=== PATIENT | male | born 1995 ===

== ENCOUNTER 2016-11-30 11:42 | Emergency (ER) | payer SELFPAY ==
[2016-11-30 11:48] VITALS: BMI 24.3
[2016-11-30 12:52] LABS: ADD MANUAL DIFF? NO
--- NOTE | 2016-11-30 12:53 | RAD ---
HISTORY: pes COMPARISON: 04/24/2016 FINDINGS: LUNGS: No active pulmonary disease. PLEURA: No significant pleural effusion identified, no pneumothorax apparent. CARDIOVASCULAR: Normal. OSSEOUS STRUCTURES: No significant abnormalities. VISUALIZED UPPER ABDOMEN: Normal. OTHER FINDINGS: None. IMPRESSION: No active disease.
[2016-11-30 12:54] LABS: BASO # 0.04 K/mm3 (0.0-2.0); BASO % 0.6 % (0.0-3.0); EOS % 0.5 % (1.5-5.0); GRAN # 4.13 (1.4-6.5); GRAN % 66.1 % (50.0-68.0); HEMATOCRIT 44.8 % (42.0-52.0); LYMPH # 1.6 (1.2-3.4); MEAN CELL VOLUME 86.7 fL (80.0-105.0); MEAN CORPUSCULAR HEMOGLOBIN 30.9 pg (25.0-35.0); MEAN CORPUSCULAR HGB CONC 35.7 g/dl (31.0-37.0); MONO # 0.5 (0.1-0.6); MONO % 7.8 % (1.0-6.0); PLATELET COUNT 178 10^3/uL (120.0-450.0); RED CELL DISTRIBUTION WIDTH 12.5 % (11.5-14.5); WHITE BLOOD COUNT 6.3 10^3/ul (4.5-11.0)
[2016-11-30 13:05] LABS: ALB/GLOB RATIO 1.3 (1.1-1.8); ALKALINE PHOSPHATASE 68 U/L (38-133); ALT/SGPT 32 U/L (7-56); AST/SGOT 28 U/L (15-59); BILIRUBIN,TOTAL 1.5 mg/dL (0.2-1.3); BLOOD UREA NITROGEN 24 mg/dL (7-21); CALCIUM 9.5 mg/dL (8.4-10.5); CARBON DIOXIDE 26 mmol/L (21-33); CHLORIDE 100 mmol/L (98-107); GFR AFRICAN-AMERICAN > 60; GLUCOSE,RANDOM 86 mg/dL (70-110); POTASSIUM 3.9 mmol/L (3.6-5.0); SODIUM 141 mmol/L (132-148); TOTAL PROTEIN 8.7 g/dL (5.8-8.3)
[2016-11-30 14:20] LABS: URINE APPEARANCE CLEAR (CLEAR); URINE BILIRUBIN SMALL (NEGATIVE); URINE BLOOD TRACE-INTACT (NEGATIVE); URINE COLOR YELLOW (YELLOW); URINE GLUCOSE (UA) NEGATIVE (NEGATIVE); URINE KETONE 40 mg/dL (NEGATIVE); URINE LEUKOCYTE ESTERASE NEGATIVE Leu/uL (NEGATIVE); URINE PROTEIN TRACE mg/dL (<30 mg/dL)
[2016-11-30 14:30] LABS: URINE WBC NEGATIVE /hpf (0-6)
--- NOTE | 2016-11-30 14:32 | ED PDOC ---
Arrival/HPI - General Historian: Patient <Prudence Maloney - Last Filed: 11/30/16 20:55> <Jimmy Brady - Last Filed: 11/30/16 22:42> - General Chief Complaint: Substance Abuse Time Seen by Provider: 11/30/16 12:11 - History of Present Illness Narrative History of Present Illness (Text): 11/30/16 14:29 21-year-old male with a history of substance abuse and psychotic behavior presents today after being found in someone's backyard just smiling. Patient denies any complaints. Denies alcohol use. (Prudence Maloney) Past Medical History - Provider Review Nursing Documentation Reviewed: Yes - Travel History Have you recently traveled outside [place] w/in the past 3 mons?: No - Infectious Disease Hx of Infectious Diseases: None - Tetanus Immunization Tetanus Immunization: Unknown - Cardiac Hx Cardiac Disorders: No - Pulmonary Hx Respiratory Disorders: No - Neurological Hx Neurological Disorder: No - HEENT Hx HEENT Disorder: No - Renal Hx Renal Disorder: No - Endocrine/Metabolic Hx Endocrine Disorders: No - Hematological/Oncological Hx Blood Disorders: No - Integumentary Hx Dermatological Disorder: No - Musculoskeletal/Rheumatological Hx Musculoskeletal Disorders: No - Gastrointestinal Hx Gastrointestinal Disorders: No - Genitourinary/Gynecological Hx Genitourinary Disorders: No - Psychiatric Hx Emotional Abuse: No Hx Substance Use: Yes (Marijuana) - Anesthesia Hx Anesthesia: No <Prudence Maloney - Last Filed: 11/30/16 20:55> Family/Social History - Physician Review Nursing Documentation Reviewed: Yes Family/Social History: Unknown Family HX Smoking Status: Heavy Smoker > 10 Cigarettes Daily Hx Alcohol Use: No Hx Substance Use: Yes (Marijuana) Substance used: marijuana <Prudence Maloney - Last Filed: 11/30/16 20:55> Allergies/Home Meds <Prudence Maloney - Last Filed: 11/30/16 20:55> <Jimmy Brady - Last Filed: 11/30/16 22:42> Allergies/Adverse Reactions: Allergies No Known Allergies Allergy (Verified 04/13/16 13:41) Review of Systems - Review of Systems Systems not reviewed;Unavailable: Psychotic Respiratory: absent: Cough Cardiovascular: absent: Chest Pain Gastrointestinal: absent: Abdominal Pain, Vomiting Musculoskeletal: absent: Arthralgias Neurological: absent: Headache <Prudence Maloney - Last Filed: 11/30/16 20:55> Physical Exam Vital Signs Reviewed: Yes Temperature: Afebrile Blood Pressure: Normal Pulse: Regular Respiratory Rate: Normal Appearance: Positive for: Well-Appearing, Non-Toxic, Comfortable Pain Distress: None Mental Status: Positive for: Alert and Oriented X 3 - Systems Exam Head: Present: Atraumatic Neck: Present: Normal Range of Motion Respiratory/Chest: Present: Clear to Auscultation, Good Air Exchange. No: Respiratory Distress, Accessory Muscle Use Cardiovascular: Present: Regular Rate and Rhythm, Normal S1, S2. No: Murmurs Abdomen: No: Tenderness Back: Present: Normal Inspection Upper Extremity: Present: Normal ROM Lower Extremity: Present: Normal ROM Skin: Present: Warm, Dry, Normal Color. No: Rashes Psychiatric: Present: Alert <Prudence Maloney - Last Filed: 11/30/16 20:55> Vital Signs Temp Pulse Resp BP Pulse Ox 11/30/16 20:06 98.5 F 68 16 136/78 100 11/30/16 17:14 98 F 90 18 128/60 100 11/30/16 15:53 98.0 F 77 16 124/87 99 11/30/16 12:23 98.4 F 95 H 18 136/77 99 11/30/16 11:45 97.8 F 99 H 16 136/77 100 Medical Decision Making <Prudence Maloney - Last Filed: 11/30/16 20:55> <Jimmy Brady - Last Filed: 11/30/16 22:42> ED Course and Treatment: 11/30/16 14:32 Patient is nontoxic well-appearing in no distress vital signs are stable. CBC WNL CMP WNL Tylenol WNL Salicylate WNL Alcohol level WNL Urine drug screen + marijuana UA; positive blood cxr: wnl ekg normal sinus rhythm at 92 bpm normal axis normal intervals no ST elevations pt is medically cleared for PES evaluation/and psychiatric transfer/admission Patient was seen and evaluated by PES screener: erwin will get [facility] screening; pt refused to sign voluntarily to psychiatric floor. 11/30/16 20:56 Case signed out to Dr. Brady pending [facility] psychiatric screening. ( Prudence Maloney) 11/30/16 22:34 Pt was seen and evaluated by [facility] screeners, not a candidate for admission. Pt was seen againt by FERNY Faye, she discussed with Dr. Boateng, pt is to be discharged against psychiatric recommendation. Will f/u with outpt treatment. Pt was deemed not to be a suicidal or homicidal risk by psychiatrist. 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 Pt instructed to f/u outpt. (Jimmy Brady) - Lab Interpretations Lab Results: 11/30/16 12:00 11/30/16 12:00 Lab Results 11/30/16 14:10: Urine Color Yellow, Urine Appearance Clear, Urine pH 6.0, Ur Specific [place] 1.025, Urine Protein Trace H, Urine Glucose (UA) Negative, Urine Ketones 40 H, Urine Blood Trace-intact H, Urine Nitrate Negative, Urine Bilirubin Small H, Urine Urobilinogen 1.0 H, Ur Leukocyte Esterase Negative, Urine RBC 1 - 3, Urine WBC Negative, Urine Other Mucus, Urine Opiates Screen Negative, Urine Methadone Screen Negative, Ur Barbiturates Screen Negative, Ur Phencyclidine Scrn Negative, Ur Amphetamines Screen Negative, U Benzodiazepines Scrn Negative, U Oth Cocaine Metabols Negative, U Cannabinoids Screen Positive H 11/30/16 12:00: WBC 6.3 D, RBC 5.17, Hgb 16.0, Hct 44.8, MCV 86.7, MCH 30.9, MCHC 35.7, RDW 12.5, Plt Count 178, MPV 12.0 H, Gran % 66.1, Lymph % (Auto) 25.0 , [place] % (Auto) 7.8 H, Eos % (Auto) 0.5 L, Baso % (Auto) 0.6, Gran # 4.13, Lymph # 1.6, [place] # 0.5, Eos # 0.0, Baso # 0.04, Sodium 141, Potassium 3.9, Chloride 100, Carbon Dioxide 26, Anion Gap 19, BUN 24 H, Creatinine 1.0, Est GFR ( Amer) > 60, Est GFR (Non-Af Amer) > 60, Random Glucose 86, Calcium 9.5, Total Bilirubin 1.5 H, AST 28, ALT 32, Alkaline Phosphatase 68, Total Protein 8.7 H, Albumin 4.9 H, Globulin 3.8, Albumin/Globulin Ratio 1.3, Salicylates < 1 L, Acetaminophen < 10.0 L, Alcohol, Quantitative < 10 - RAD Interpretation Radiology Orders: 11/30/16 12:34 CHEST PORTABLE [RAD] Stat Disposition/Present on Arrival - Present on Arrival History of DVT/PE: No History of Uncontrolled Diabetes: No Urinary Catheter: No History of Decub. 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
--- NOTE | 2016-11-30 18:51 | CARD ---
APPROVED REPORT EKG Measurement Heart [id number] <Conclusion> Normal sinus rhythm Normal ECG
[2016-11-30 20:06] VITALS: RESP 16; TEMP 98.5
[2016-11-30 23:04] VITALS: BP 130/72; PULSE 70; O2SAT 97
== END 2016-11-30 23:08 | disposition home or self-care (01) ==
LOC: ED 11:42
DX: F19.950 Other psychoactive substance use, unspecified with psychoactive substance-induced psychotic disorder with delusions (principal)
CPT/HCPCS: 71010; 80053; 81001; 85025; 93005; 99285; G0480

== ENCOUNTER 2017-05-16 22:17 | Emergency (ER) | payer MEDICAID, OTHER ==
[2017-05-16 22:18] VITALS: BMI 24.3
--- NOTE | 2017-05-16 22:27 | ED PDOC ---
Arrival/HPI - General Time Seen by Provider: 05/16/17 22:20 Historian: Patient - History of Present Illness Narrative History of Present Illness (Text): 05/16/17 22:28 A 22 year old male, whose past medical history includes schizophrenia, was brought in by EMS to the emergency department and was found on the street for suspected substance abuse. Patient is nonverbal, smiling. Symptom Onset: Sudden Symptom Course: Unchanged Activities at Onset: Rest Context: Street Past Medical History - Provider Review Nursing Documentation Reviewed: Yes - Infectious Disease Hx of Infectious Diseases: None - Tetanus Immunization Tetanus Immunization: Unknown - Cardiac Hx Cardiac Disorders: No - Pulmonary Hx Respiratory Disorders: No - Neurological Hx Neurological Disorder: No - HEENT Hx HEENT Disorder: No - Renal Hx Renal Disorder: No - Endocrine/Metabolic Hx Endocrine Disorders: No - Hematological/Oncological Hx Blood Disorders: No - Integumentary Hx Dermatological Disorder: No - Musculoskeletal/Rheumatological Hx Musculoskeletal Disorders: No - Gastrointestinal Hx Gastrointestinal Disorders: No - Genitourinary/Gynecological Hx Genitourinary Disorders: No - Psychiatric Hx Emotional Abuse: No Hx Substance Use: Yes (Marijuana) - Anesthesia Hx Anesthesia: No Family/Social History - Physician Review Nursing Documentation Reviewed: Yes Family/Social History: No Known Family HX Smoking Status: Heavy Smoker > 10 Cigarettes Daily Hx Alcohol Use: No Hx Substance Use: Yes (Marijuana) Substance used: marijuana Allergies/Home Meds Allergies/Adverse Reactions: Allergies No Known Allergies Allergy (Verified 05/16/17 22:21) Review of Systems - Physician Review All systems were reviewed & negative as marked: Yes - Review of Systems Constitutional: absent: Fevers Psychiatric: absent: Depression Physical Exam Vital Signs Reviewed: Yes Vital Signs Temp Pulse Resp BP Pulse Ox 05/18/17 12:06 98.0 F 85 17 120/75 99 05/18/17 04:33 80 16 98 05/17/17 20:00 75 20 111/70 98 05/17/17 13:43 98.2 F 74 16 110/63 100 05/17/17 10:38 98.7 F 88 20 120/79 98 05/17/17 08:41 98 F 89 18 121/78 99 05/17/17 03:37 74 16 101/53 L 96 Appearance: Positive for: Well-Appearing, Non-Toxic, Comfortable Pain Distress: None - Systems Exam Head: Present: Atraumatic, Normocephalic Pupils: Present: PERRL Extroacular Muscles: Present: EOMI Conjunctiva: Present: Normal Mouth: Present: Moist Mucous Membranes Neck: Present: Normal Range of Motion Respiratory/Chest: Present: Clear to Auscultation, Good Air Exchange. No: Respiratory Distress, Accessory Muscle Use Cardiovascular: Present: Regular Rate and Rhythm, Normal S1, S2. No: Murmurs Abdomen: Present: Normal Bowel Sounds. No: Tenderness, Distention, Peritoneal Signs Back: Present: Normal Inspection Upper Extremity: Present: Normal Inspection. No: Cyanosis, Edema Lower Extremity: Present: Normal Inspection. No: Edema Neurological: Present: GCS=15, CN II-XII Intact, Speech Normal Skin: Present: Warm, Dry, Normal Color. No: Rashes Psychiatric: Present: Alert, Oriented x 3 Medical Decision Making ED Course and Treatment: 05/16/17 22:25 Impression: A 22 year old male with suspected substance abuse. Plan: -- EKG -- chest xray -- labs -- Urinalysis -- Reassess and disposition Progress Notes: chest xray: No active disease, interpreted by me. 05/17/17 01:46 EKG: Ordered, reviewed, and independently interpreted the EKG. Rate : 50 BPM Rhythm : sinus bradycardia Interpretation : Nonspecific ST segment changes [facility] accepted awaiting bed case endorsed dr coleman 05/19/17 08:21 - Lab Interpretations Lab Results: 05/16/17 22:45 05/16/17 22:45 Lab Results 05/17/17 00:10: Urine Opiates Screen Negative, Urine Methadone Screen Negative, Ur Barbiturates Screen Negative, Ur Phencyclidine Scrn Negative, Ur Amphetamines Screen Negative, U Benzodiazepines Scrn Negative, U Oth Cocaine Metabols Negative, U Cannabinoids Screen Positive H 05/17/17 00:10: Urine Color Yellow, Urine Appearance Clear, Urine pH 7.0, Ur Specific [place] 1.020, Urine Protein Trace H, Urine Glucose (UA) Negative, Urine Ketones Trace H, Urine Blood Negative, Urine Nitrate Negative, Urine Bilirubin Small H, Urine Urobilinogen 4.0 H, Ur Leukocyte Esterase Negative, Urine RBC 0 - 2, Urine WBC 0 - 2, Ur Epithelial Cells 0 - 2 05/16/17 22:45: Alcohol, Quantitative < 10 05/16/17 22:45: Salicylates < 1 L, Acetaminophen < 10.0 L 05/16/17 22:45: Sodium 141, Potassium 3.5 L, Chloride 100, Carbon Dioxide 30, Anion Gap 15, BUN 20, Creatinine 1.1, Est GFR ( Amer) > 60, Est GFR (Non- Af Amer) > 60, Random Glucose 86, Calcium 9.5, Total Bilirubin 1.1, AST 26, ALT 24, Alkaline Phosphatase 71, Total Protein 7.6, Albumin 4.6, Globulin 3.0, Albumin/Globulin Ratio 1.5 05/16/17 22:45: WBC 5.5, RBC 4.92, Hgb 15.0, Hct 42.7, MCV 86.8, MCH 30.5, MCHC 35.1, RDW 12.4, Plt Count 180, MPV 11.2 H, Gran % 45.1 L, Lymph % (Auto) 42.4 H , [place] % (Auto) 7.2 H, Eos % (Auto) 4.4, Baso % (Auto) 0.9, Gran # 2.46, Lymph # 2.3, [place] # 0.4, Eos # 0.2, Baso # 0.05 - RAD Interpretation Radiology Orders: 05/17/17 00:56 CHEST PORTABLE [RAD] Stat - Medication Orders Current Medication Orders: Discontinued Medications Diphenhydramine HCl (Benadryl) 50 mg IM Q6H PRN PRN Reason: severe agitation Haloperidol Lactate (Haldol) 5 mg IM Q6H PRN; Protocol PRN Reason: severe agitation Lorazepam (Ativan) 0.5 mg PO [facility] PRN Reason: Protocol Last Admin: 05/17/17 23:27 Dose: Not Given Non-Admin Reason: Patient Asleep Olanzapine (Zyprexa Zydis) 5 mg PO [facility] PRN Reason: Protocol Last Admin: 05/18/17 04:23 Dose: 5 mg - Scribe Statement The provider has reviewed the documentation as recorded by the Lauren Marroquin Provider Scribe Attestation: All medical record entries made by the Scribe were at my direction and personally dictated by me. I have reviewed the chart and agree that the record accurately reflects my personal performance of the history, physical exam, medical decision making, and the department course for this patient. I have also personally directed, reviewed, and agree with the discharge instructions and disposition. Disposition/Present on Arrival - Present on Arrival Any Indicators Present on Arrival: No History of DVT/PE: No History of Uncontrolled Diabetes: No Urinary Catheter: No History Surgical Site Infection Following: None - Disposition Have Diagnosis and Disposition been Completed?: Yes Diagnosis: Schizophrenia Disposition: Transfer [facility] Disposition Time: 07:00 Condition: STABLE Forms: [employer] (Amharic)
[2017-05-16 23:03] LABS: BASO # 0.05 K/mm3 (0.0-2.0); BASO % 0.9 % (0.0-3.0); EOS # 0.2 (0.0-0.7); EOS % 4.4 % (1.5-5.0); GRAN # 2.46 (1.4-6.5); GRAN % 45.1 % (50.0-68.0); HEMATOCRIT 42.7 % (42.0-52.0); LYMPH # 2.3 (1.2-3.4); LYMPH % 42.4 % (22.0-35.0); MEAN CELL VOLUME 86.8 fl (80.0-105.0); MEAN CORPUSCULAR HEMOGLOBIN 30.5 pg (25.0-35.0); MEAN CORPUSCULAR HGB CONC 35.1 g/dl (31.0-37.0); MEAN PLATELET VOLUME 11.2 fl (7.0-11.0); MONO # 0.4 (0.1-0.6); MONO % 7.2 % (1.0-6.0); RED CELL DISTRIBUTION WIDTH 12.4 % (11.5-14.5); WHITE BLOOD COUNT 5.5 10^3/ul (4.5-11.0)
[2017-05-16 23:16] LABS: ALB/GLOB RATIO 1.5 (1.1-1.8); ALKALINE PHOSPHATASE 71 U/L (38-126); ALT/SGPT 24 U/L (7-56); AST/SGOT 26 U/L (17-59); BILIRUBIN,TOTAL 1.1 mg/dL (0.2-1.3); BLOOD UREA NITROGEN 20 mg/dL (7-21); CALCIUM 9.5 mg/dL (8.4-10.5); CARBON DIOXIDE 30 mmol/L (21-33); CHLORIDE 100 mmol/L (98-107); GFR AFRICAN-AMERICAN > 60; GLUCOSE,RANDOM 86 mg/dL (70-110); POTASSIUM 3.5 mmol/L (3.6-5.0); SODIUM 141 mmol/L (132-148); TOTAL PROTEIN 7.6 g/dL (5.8-8.3)
[2017-05-17 01:10] LABS: URINE BILIRUBIN SMALL (NEGATIVE); URINE BLOOD NEGATIVE (NEGATIVE); URINE GLUCOSE (UA) NEGATIVE (NEGATIVE); URINE KETONE TRACE mg/dL (NEGATIVE); URINE LEUKOCYTE ESTERASE NEGATIVE Leu/uL (NEGATIVE); URINE PROTEIN TRACE mg/dL (<30 mg/dL)
[2017-05-17 01:14] LABS: URINE APPEARANCE CLEAR (CLEAR); URINE COLOR YELLOW (YELLOW)
[2017-05-17 01:42] LABS: URINE EPITHELIAL CELLS 0 - 2 /hpf (0-5); URINE RBC 0 - 2 /hpf (0-2); URINE WBC 0 - 2 /hpf (0-6)
[2017-05-17] MEDS ORDERED: DiphenhydrAMINE 50 mg/ml Inj IM PRN (07:24)
--- NOTE | 2017-05-17 08:07 | ED PDOC ---
Physical Exam Vital Signs Reviewed: Yes Vital Signs Temp Pulse Resp BP Pulse Ox 05/17/17 13:43 98.2 F 74 16 110/63 100 05/17/17 10:38 98.7 F 88 20 120/79 98 05/17/17 08:41 98 F 89 18 121/78 99 05/17/17 03:37 74 16 101/53 L 96 Temperature: Afebrile Blood Pressure: Hypotensive Pulse: Regular Respiratory Rate: Normal Medical Decision Making ED Course and Treatment: 05/17/17 08:06 Patient endorsed to me by Dr. Shelley, pending [facility] transfer. 05/17/17 11:48 Patient comfortable and in no distress. Chio ISAACS came to evaluate patient. [facility] is still pending bed availability. No further recommendations at this time. 05/17/17 16:59 Patient comfortable and in no distress. Says he ate already. Doesn't have any complaints. Still pending bed availability at [facility]. - Lab Interpretations Lab Results: 05/16/17 22:45 05/16/17 22:45 Lab Results 05/17/17 00:10: Urine Opiates Screen Negative, Urine Methadone Screen Negative, Ur Barbiturates Screen Negative, Ur Phencyclidine Scrn Negative, Ur Amphetamines Screen Negative, U Benzodiazepines Scrn Negative, U Oth Cocaine Metabols Negative, U Cannabinoids Screen Positive H 05/17/17 00:10: Urine Color Yellow, Urine Appearance Clear, Urine pH 7.0, Ur Specific [place] 1.020, Urine Protein Trace H, Urine Glucose (UA) Negative, Urine Ketones Trace H, Urine Blood Negative, Urine Nitrate Negative, Urine Bilirubin Small H, Urine Urobilinogen 4.0 H, Ur Leukocyte Esterase Negative, Urine RBC 0 - 2, Urine WBC 0 - 2, Ur Epithelial Cells 0 - 2 05/16/17 22:45: Alcohol, Quantitative < 10 05/16/17 22:45: Salicylates < 1 L, Acetaminophen < 10.0 L 05/16/17 22:45: Sodium 141, Potassium 3.5 L, Chloride 100, Carbon Dioxide 30, Anion Gap 15, BUN 20, Creatinine 1.1, Est GFR ( Amer) > 60, Est GFR (Non- Af Amer) > 60, Random Glucose 86, Calcium 9.5, Total Bilirubin 1.1, AST 26, ALT 24, Alkaline Phosphatase 71, Total Protein 7.6, Albumin 4.6, Globulin 3.0, Albumin/Globulin Ratio 1.5 05/16/17 22:45: WBC 5.5, RBC 4.92, Hgb 15.0, Hct 42.7, MCV 86.8, MCH 30.5, MCHC 35.1, RDW 12.4, Plt Count 180, MPV 11.2 H, Gran % 45.1 L, Lymph % (Auto) 42.4 H , [place] % (Auto) 7.2 H, Eos % (Auto) 4.4, Baso % (Auto) 0.9, Gran # 2.46, Lymph # 2.3, [place] # 0.4, Eos # 0.2, Baso # 0.05 - RAD Interpretation Radiology Orders: 05/17/17 00:56 CHEST PORTABLE [RAD] Stat - Medication Orders Current Medication Orders: Diphenhydramine HCl (Benadryl) 50 mg IM Q6H PRN PRN Reason: severe agitation Haloperidol Lactate (Haldol) 5 mg IM Q6H PRN; Protocol PRN Reason: severe agitation Lorazepam (Ativan) 0.5 mg PO [facility] PRN Reason: Protocol Olanzapine (Zyprexa Zydis) 5 mg PO [facility] PRN Reason: Protocol - Scribe Statement The provider has reviewed the documentation as recorded by the Lauren Beckman Provider Scribe Attestation: All medical record entries made by the Scribe were at my direction and personally dictated by me. I have reviewed the chart and agree that the record accurately reflects my personal performance of the history, physical exam, medical decision making, and the department course for this patient. I have also personally directed, reviewed, and agree with the discharge instructions and disposition. Disposition/Present on Arrival - Present on Arrival Any Indicators Present on Arrival: No History of DVT/PE: No History of Uncontrolled Diabetes: No Urinary Catheter: No History of Decub. Ulcer: No History Surgical Site Infection Following: None - Disposition Have Diagnosis and Disposition been Completed?: Yes Diagnosis: Schizophrenia Disposition: Trans to Other Acute Care Hosp Disposition Time: 12:30 Condition: STABLE Forms: [employer] (Mozambican)
--- NOTE | 2017-05-17 08:11 | RAD ---
HISTORY: cp COMPARISON: [facility] Comparison made with chest radiograph dated 11/30/2016. FINDINGS: LUNGS: No active pulmonary disease. PLEURA: No significant pleural effusion identified, no pneumothorax apparent. CARDIOVASCULAR: Normal. OSSEOUS STRUCTURES: No significant abnormalities. VISUALIZED UPPER ABDOMEN: Normal. OTHER FINDINGS: None. IMPRESSION: No active disease.
[2017-05-17] MEDS ORDERED: OLANZapine 5 mg Disintegrating Tab PO SCH (10:00)
--- NOTE | 2017-05-17 10:48 | CON ---
HISTORY OF PRESENT ILLNESS: The patient is a 22-year-old male with history of schizophrenia, history of synthetic drug use, history of being admitted to the psychiatric inpatient unit, most recent was in March 2016. The patient was brought in by police today to the emergency room for evaluation of bizarre and disorganized behavior. The patient also is nonverbal, just smiling. The patient was screened by [facility] overnight, was accepted and presently, the patient is waiting for bed to be available. This production underwriter attempted to speak to the patient; the patient is nonverbal, just nodding his head. Flat affect. The patient familiar to this production underwriter from the previous admission. The patient was grossly disorganized back then. As per this production underwriter note from before, the patient had history of being admitted to [facility] under involuntary status. No additional information is available. Besides that, the patient was tolerating following medications: Zyprexa and Depakote. The patient was discharged from the psychiatric inpatient unit with Zyprexa 10 mg twice a day, Depakote 1500 at the nighttime and Cogentin 1 mg twice a day. The patient most likely was noncompliant with the medications and followup appointments. PHYSICAL EXAMINATION: VITAL SIGNS: This production underwriter reviewed vital signs. Vital signs seem to be stable. Temperature 97.5, pulse is 74, blood pressure 101/53, respirations 16, oxygen saturation is 96%. MEDICATIONS: Will be resumed, Zyprexa Zydis 5 mg twice a day at the morning time and the nighttime for psychosis, Ativan 0.5 mg at the nighttime and the morning time for catatonia and being nonverbal, Haldol and Benadryl as needed for agitation. LABORATORY DATA: Chemistry reviewed. Hematology reviewed. Urinalysis reviewed. Toxicology reviewed, it was positive for cannabis. Serology: RPR is negative in 2016. MENTAL STATUS EXAMINATION: As this production underwriter described above, the patient is nonverbal, lying, not moving, was communicating with nodding his head. The patient was not able to provide any information. Seems to be psychotic, internally preoccupied and disorganized. IMPRESSION: As per history, the patient has schizophrenia as well as more substance abuse and dependence, history of synthetic drug use. PLAN: The patient was accepted by [facility]. At present moment, the patient awaiting for bed to be available. Medications were started. The patient was on Zyprexa which will be resumed to 5 mg twice a day as well as Ativan 0.5 mg twice a day, p.r.n. orders will be Haldol and Benadryl. Should you have any questions give me a call back. Case was discussed with Dr. Stephenson. Thank you very much for letting me to participate in the care of your patient. Anastasiya Boateng MD
--- NOTE | 2017-05-17 19:26 | ED PDOC ---
Physical Exam Vital Signs Temp Pulse Resp BP Pulse Ox 05/18/17 04:33 80 16 98 05/17/17 20:00 75 20 111/70 98 05/17/17 13:43 98.2 F 74 16 110/63 100 05/17/17 10:38 98.7 F 88 20 120/79 98 05/17/17 08:41 98 F 89 18 121/78 99 05/17/17 03:37 74 16 101/53 L 96 Temperature: Afebrile Blood Pressure: Hypertensive Pulse: Regular Respiratory Rate: Normal Appearance: Positive for: Well-Appearing, Non-Toxic, Comfortable Pain Distress: None Mental Status: Positive for: Alert and Oriented X 3 Medical Decision Making ED Course and Treatment: 05/17/17 19:25 Patient endorsed to me by Dr. Stephenson. Pending [facility] [place]. Pt is currently resting comfortably and in no acute distress. - Lab Interpretations Lab Results: 05/16/17 22:45 05/16/17 22:45 Lab Results 05/17/17 00:10: Urine Opiates Screen Negative, Urine Methadone Screen Negative, Ur Barbiturates Screen Negative, Ur Phencyclidine Scrn Negative, Ur Amphetamines Screen Negative, U Benzodiazepines Scrn Negative, U Oth Cocaine Metabols Negative, U Cannabinoids Screen Positive H 05/17/17 00:10: Urine Color Yellow, Urine Appearance Clear, Urine pH 7.0, Ur Specific [place] 1.020, Urine Protein Trace H, Urine Glucose (UA) Negative, Urine Ketones Trace H, Urine Blood Negative, Urine Nitrate Negative, Urine Bilirubin Small H, Urine Urobilinogen 4.0 H, Ur Leukocyte Esterase Negative, Urine RBC 0 - 2, Urine WBC 0 - 2, Ur Epithelial Cells 0 - 2 05/16/17 22:45: Alcohol, Quantitative < 10 05/16/17 22:45: Salicylates < 1 L, Acetaminophen < 10.0 L 05/16/17 22:45: Sodium 141, Potassium 3.5 L, Chloride 100, Carbon Dioxide 30, Anion Gap 15, BUN 20, Creatinine 1.1, Est GFR ( Amer) > 60, Est GFR (Non- Af Amer) > 60, Random Glucose 86, Calcium 9.5, Total Bilirubin 1.1, AST 26, ALT 24, Alkaline Phosphatase 71, Total Protein 7.6, Albumin 4.6, Globulin 3.0, Albumin/Globulin Ratio 1.5 05/16/17 22:45: WBC 5.5, RBC 4.92, Hgb 15.0, Hct 42.7, MCV 86.8, MCH 30.5, MCHC 35.1, RDW 12.4, Plt Count 180, MPV 11.2 H, Gran % 45.1 L, Lymph % (Auto) 42.4 H , [place] % (Auto) 7.2 H, Eos % (Auto) 4.4, Baso % (Auto) 0.9, Gran # 2.46, Lymph # 2.3, [place] # 0.4, Eos # 0.2, Baso # 0.05 - RAD Interpretation Radiology Orders: 05/17/17 00:56 CHEST PORTABLE [RAD] Stat - Medication Orders Current Medication Orders: Diphenhydramine HCl (Benadryl) 50 mg IM Q6H PRN PRN Reason: severe agitation Haloperidol Lactate (Haldol) 5 mg IM Q6H PRN; Protocol PRN Reason: severe agitation Lorazepam (Ativan) 0.5 mg PO AMHS JULIET PRN Reason: Protocol Last Admin: 05/17/17 23:27 Dose: Not Given Non-Admin Reason: Patient Asleep Olanzapine (Zyprexa Zydis) 5 mg PO AMHS JULIET PRN Reason: Protocol Last Admin: 05/18/17 04:23 Dose: 5 mg - Transfer of Care Patient signed out to Dr:: Christen Other: Awaiting [facility] transfer - Scribe Statement The provider has reviewed the documentation as recorded by the Yumikoibrosmery Merritt Provider Scribe Attestation: All medical record entries made by the Scribe were at my direction and personally dictated by me. I have reviewed the chart and agree that the record accurately reflects my personal performance of the history, physical exam, medical decision making, and the department course for this patient. I have also personally directed, reviewed, and agree with the discharge instructions and disposition. Disposition/Present on Arrival - Present on Arrival Any Indicators Present on Arrival: No History of DVT/PE: No History of Uncontrolled Diabetes: No Urinary Catheter: No History of Decub. Ulcer: No History Surgical Site Infection Following: None - Disposition Have Diagnosis and Disposition been Completed?: No Diagnosis: Schizophrenia Disposition Time: 07:00 Condition: STABLE Forms: [employer] (Frisian)
--- NOTE | 2017-05-17 22:56 | CARD ---
APPROVED REPORT EKG Measurement Heart [id number] <Conclusion> Sinus bradycardia with 1st degree AV block Incomplete left bundle branch block Borderline ECG
--- NOTE | 2017-05-18 07:30 | ED PDOC ---
Physical Exam Vital Signs Reviewed: Yes Vital Signs Temp Pulse Resp BP Pulse Ox 05/18/17 12:06 98.0 F 85 17 120/75 99 05/18/17 04:33 80 16 98 05/17/17 20:00 75 20 111/70 98 05/17/17 13:43 98.2 F 74 16 110/63 100 05/17/17 10:38 98.7 F 88 20 120/79 98 05/17/17 08:41 98 F 89 18 121/78 99 05/17/17 03:37 74 16 101/53 L 96 Blood Pressure: Hypotensive Pulse: Regular Respiratory Rate: Normal Appearance: Positive for: Well-Appearing, Non-Toxic, Comfortable Pain Distress: None Mental Status: Positive for: Alert and Oriented X 3 Medical Decision Making ED Course and Treatment: 05/18/17 07:29 Patient pending transfer to [facility]. Patient in no distress this morning. No other complaints at this time. 05/18/17 12:18 Informed nurse patient is accepted to [facility] and transport is on the way. Dr. Lucero is accepting physician. - Lab Interpretations Lab Results: 05/16/17 22:45 05/16/17 22:45 Lab Results 05/17/17 00:10: Urine Opiates Screen Negative, Urine Methadone Screen Negative, Ur Barbiturates Screen Negative, Ur Phencyclidine Scrn Negative, Ur Amphetamines Screen Negative, U Benzodiazepines Scrn Negative, U Oth Cocaine Metabols Negative, U Cannabinoids Screen Positive H 05/17/17 00:10: Urine Color Yellow, Urine Appearance Clear, Urine pH 7.0, Ur Specific [place] 1.020, Urine Protein Trace H, Urine Glucose (UA) Negative, Urine Ketones Trace H, Urine Blood Negative, Urine Nitrate Negative, Urine Bilirubin Small H, Urine Urobilinogen 4.0 H, Ur Leukocyte Esterase Negative, Urine RBC 0 - 2, Urine WBC 0 - 2, Ur Epithelial Cells 0 - 2 05/16/17 22:45: Alcohol, Quantitative < 10 05/16/17 22:45: Salicylates < 1 L, Acetaminophen < 10.0 L 05/16/17 22:45: Sodium 141, Potassium 3.5 L, Chloride 100, Carbon Dioxide 30, Anion Gap 15, BUN 20, Creatinine 1.1, Est GFR ( Amer) > 60, Est GFR (Non- Af Amer) > 60, Random Glucose 86, Calcium 9.5, Total Bilirubin 1.1, AST 26, ALT 24, Alkaline Phosphatase 71, Total Protein 7.6, Albumin 4.6, Globulin 3.0, Albumin/Globulin Ratio 1.5 05/16/17 22:45: WBC 5.5, RBC 4.92, Hgb 15.0, Hct 42.7, MCV 86.8, MCH 30.5, MCHC 35.1, RDW 12.4, Plt Count 180, MPV 11.2 H, Gran % 45.1 L, Lymph % (Auto) 42.4 H , [place] % (Auto) 7.2 H, Eos % (Auto) 4.4, Baso % (Auto) 0.9, Gran # 2.46, Lymph # 2.3, [place] # 0.4, Eos # 0.2, Baso # 0.05 I have reviewed the lab results: Yes - RAD Interpretation Radiology Orders: 05/17/17 00:56 CHEST PORTABLE [RAD] Stat - Medication Orders Current Medication Orders: Diphenhydramine HCl (Benadryl) 50 mg IM Q6H PRN PRN Reason: severe agitation Haloperidol Lactate (Haldol) 5 mg IM Q6H PRN; Protocol PRN Reason: severe agitation Lorazepam (Ativan) 0.5 mg PO AMHS JULIET PRN Reason: Protocol Last Admin: 05/17/17 23:27 Dose: Not Given Non-Admin Reason: Patient Asleep Olanzapine (Zyprexa Zydis) 5 mg PO AMHS JULIET PRN Reason: Protocol Last Admin: 05/18/17 04:23 Dose: 5 mg - Scribe Statement The provider has reviewed the documentation as recorded by the Lauren Marroquin Provider Scribe Attestation: All medical record entries made by the Yumikoibrosmery were at my direction and personally dictated by me. I have reviewed the chart and agree that the record accurately reflects my personal performance of the history, physical exam, medical decision making, and the department course for this patient. I have also personally directed, reviewed, and agree with the discharge instructions and disposition. Disposition/Present on Arrival - Present on Arrival Any Indicators Present on Arrival: No History of DVT/PE: No History of Uncontrolled Diabetes: No Urinary Catheter: No History of Decub. Ulcer: No History Surgical Site Infection Following: None - Disposition Have Diagnosis and Disposition been Completed?: Yes Diagnosis: Schizophrenia Disposition: Transfer [facility] Disposition Time: 12:18 Patient Plan: Transfer To ([facility]) Patient Problems: Current Active Problems Problem Status Onset Schizophrenia Acute Condition: STABLE Forms: [employer] (Wolof)
[2017-05-18 12:06] VITALS: BP 120/75; PULSE 85; RESP 17; TEMP 98; O2SAT 99
== END 2017-05-18 12:30 | disposition short-term general hospital (02) ==
LOC: ED 22:17
DX: F20.9 Schizophrenia, unspecified (principal)
CPT/HCPCS: 80053; 81001; 85025; 99285; G0480

== ENCOUNTER 2018-04-06 03:56 | Inpatient (IN) | payer MEDICAID ==
[2018-04-06 03:57] VITALS: BMI 24.3
--- NOTE | 2018-04-06 04:09 | ED PDOC ---
Arrival/HPI - General Chief Complaint: Medical Clearance Time Seen by Provider: 04/06/18 03:58 Historian: Patient, EMS, Police - History of Present Illness Narrative History of Present Illness (Text): 04/06/18 04:07 Slim Leiva is a 23 year old male, whose past medical history includes schizophrenia and substance abuse, who presents to the Emergency department brought in by EMS/[place] PD for bizarre behavior. As per police, patient was found sleeping on a bench outside and began behaving bizarrely when approached. Patient states he has not seen a psychiatrist and denies any alcohol use, substance use, or taking any prescription medications. Patient denies any somatic complaints. Symptom Onset: Gradual Symptom Course: Unchanged Activities at Onset: Light Context: Street Past Medical History - Provider Review Nursing Documentation Reviewed: Yes - Infectious Disease Hx of Infectious Diseases: None - Tetanus Immunization Tetanus Immunization: Unknown - Cardiac Hx Cardiac Disorders: No - Pulmonary Hx Respiratory Disorders: No - Neurological Hx Neurological Disorder: No - HEENT Hx HEENT Disorder: No - Renal Hx Renal Disorder: No - Endocrine/Metabolic Hx Endocrine Disorders: No - Hematological/Oncological Hx Blood Disorders: No - Integumentary Hx Dermatological Disorder: No - Musculoskeletal/Rheumatological Hx Musculoskeletal Disorders: No - Gastrointestinal Hx Gastrointestinal Disorders: No - Genitourinary/Gynecological Hx Genitourinary Disorders: No - Psychiatric Hx Emotional Abuse: No Hx Substance Use: Yes (Marijuana) - Anesthesia Hx Anesthesia: No Family/Social History - Physician Review Nursing Documentation Reviewed: Yes Family/Social History: Unknown Family HX Smoking Status: Heavy Smoker > 10 Cigarettes Daily Hx Alcohol Use: No Hx Substance Use: Yes (Marijuana) Substance used: marijuana Allergies/Home Meds Allergies/Adverse Reactions: Allergies No Known Allergies Allergy (Verified 05/16/17 22:21) Review of Systems - Physician Review All systems were reviewed & negative as marked: Yes - Review of Systems Constitutional: Normal. absent: Fevers Eyes: Normal ENT: Normal Respiratory: Normal. absent: SOB, Cough Cardiovascular: Normal. absent: Chest Pain Gastrointestinal: Normal. absent: Abdominal Pain, Diarrhea, Nausea, Vomiting Genitourinary Male: Normal. absent: Dysuria, Frequency, Hematuria, Urinary Output Changes Musculoskeletal: Normal. absent: Back Pain, Neck Pain Skin: Normal. absent: Rash Neurological: Normal. absent: Headache, Dizziness Endocrine: Normal Hemo/Lymphatic: Normal Psychiatric: Other (+bizarre behavior) Physical Exam Vital Signs Reviewed: Yes Vital Signs Temp Pulse Resp BP Pulse Ox 04/06/18 04:11 97.3 F L 88 18 143/85 100 Temperature: Afebrile Blood Pressure: Normal Pulse: Regular Respiratory Rate: Normal Appearance: Positive for: Well-Appearing, Non-Toxic, Comfortable Pain Distress: None Mental Status: Positive for: Alert and Oriented X 3 - Systems Exam Head: Present: Atraumatic, Normocephalic Pupils: Present: PERRL Extroacular Muscles: Present: EOMI Conjunctiva: Present: Normal Mouth: Present: Moist Mucous Membranes Neck: Present: Normal Range of Motion Respiratory/Chest: Present: Clear to Auscultation, Good Air Exchange. No: Respiratory Distress, Accessory Muscle Use Cardiovascular: Present: Regular Rate and Rhythm, Normal S1, S2. No: Murmurs Abdomen: No: Tenderness, Distention, Peritoneal Signs Back: Present: Normal Inspection Upper Extremity: Present: Normal Inspection. No: Cyanosis, Edema Lower Extremity: Present: Normal Inspection. No: Edema Neurological: Present: GCS=15, CN II-XII Intact, Speech Normal Skin: Present: Warm, Dry, Normal Color. No: Rashes Psychiatric: Present: Alert, Oriented x 3, Normal Insight, Normal Concentration. No: Normal Affect (Flat affect) Medical Decision Making ED Course and Treatment: 04/06/18 04:07 Impression: 23 year old male brought in for bizarre behavior, found sleeping on bench. Plan: -- EKG -- Chest X-ray -- Labs, alcohol level -- Urine drug screen -- Reassess and disposition Prior Visits: Notes and results from previous visits were reviewed. On 05/16/2017, pt was seen for substance abuse/bizarre behavior. Pt was transferred to [facility] [place] psych [place]. Progress Notes: Reviewed EKG, NSR at 91 bpm. LVH. No acute changes. 04/06/18 05:03 Pt seen and evaluated by PES cyrus Perkins, who discussed cause with psychiatrist information services assistant. Pt to be referred [facility] screener for involuntary admission. 04/06/18 07:00 Case endorsed to /pending [facility] screeners/final disposition - Lab Interpretations Lab Results: 04/06/18 04:29 04/06/18 04:29 Lab Results 04/06/18 04:29: Alcohol, Quantitative < 10 04/06/18 04:29: WBC 7.8 D, RBC 4.59, Hgb 13.7 L, Hct 38.5 L, MCV 83.9, MCH 29.8 , MCHC 35.6, RDW 12.1, Plt Count 372, MPV 10.4 04/06/18 04:29: Sodium 142, Potassium 3.4 L, Chloride 102, Carbon Dioxide 28, Anion Gap 15, BUN 15, Creatinine 0.9, Est GFR ( Amer) > 60, Est GFR (Non- Af Amer) > 60, Random Glucose 103, Calcium 9.1, Total Bilirubin 0.5, AST 13 L D , ALT 18, Alkaline Phosphatase 61, Total Protein 8.0, Albumin 4.4, Globulin 3.5 , Albumin/Globulin Ratio 1.3 I have reviewed the lab results: Yes - RAD Interpretation Radiology Orders: 04/06/18 04:12 CHEST PORTABLE [RAD] Stat Veterinarian: ED Physician - EKG Interpretation Interpreted by ED Physician: Yes Type: 12 lead EKG - Scribe Statement The provider has reviewed the documentation as recorded by the Lauren Noble Provider Scribe Attestation: All medical record entries made by the Scribrosmery were at my direction and personally dictated by me. I have reviewed the chart and agree that the record accurately reflects my personal performance of the history, physical exam, medical decision making, and the department course for this patient. I have also personally directed, reviewed, and agree with the discharge instructions and disposition. Disposition/Present on Arrival - Present on Arrival Any Indicators Present on Arrival: No History of DVT/PE: No History of Uncontrolled Diabetes: No Urinary Catheter: No History of Decub. Ulcer: No History Surgical Site Infection Following: None - Disposition Have Diagnosis and Disposition been Completed?: No Diagnosis: Schizophrenia Disposition Time: 07:00 Condition: STABLE Referrals: FAMILY PROVIDER,NO [Primary Care Provider] - Follow up with primary Forms: [employer] (Hungarian)
[2018-04-06 04:42] LABS: HEMOGLOBIN 13.7 g/dL (14.0-18.0); MEAN CELL VOLUME 83.9 fl (80.0-105.0); MEAN CORPUSCULAR HEMOGLOBIN 29.8 pg (25.0-35.0); MEAN CORPUSCULAR HGB CONC 35.6 g/dl (31.0-37.0); MEAN PLATELET VOLUME 10.4 fl (7.0-11.0); RBC 4.59 10^6/uL (3.5-6.1); RED CELL DISTRIBUTION WIDTH 12.1 % (11.5-14.5); WHITE BLOOD COUNT 7.8 10^3/ul (4.5-11.0)
[2018-04-06 04:52] LABS: ALB/GLOB RATIO 1.3 (1.1-1.8); ALBUMIN 4.4 g/dL (3.0-4.8); ALT/SGPT 18 U/L (7-56); AST/SGOT 13 U/L (17-59); BLOOD UREA NITROGEN 15 mg/dL (7-21); CALCIUM 9.1 mg/dL (8.4-10.5); GFR AFRICAN-AMERICAN > 60; GFR NON-AFRICAN AMERICAN > 60
[2018-04-06] MEDS ORDERED: Potassium Chloride 20 mEq ER Tab PO STA (05:32)
[2018-04-06 07:18] LABS: BARBITURATES, UR NEGATIVE (NEGATIVE); BENZODIAZEPINES, UR NEGATIVE (NEGATIVE); OPIATES, UR NEGATIVE (NEGATIVE); PHENCYCLIDINE, UR NEGATIVE (NEGATIVE)
--- NOTE | 2018-04-06 08:28 | RAD ---
Date of service: 04/06/2018 HISTORY: medical clearance COMPARISON: 05/17/2017. FINDINGS: LUNGS: The lungs are well inflated and clear. PLEURA: No significant pleural effusion identified, no pneumothorax apparent. CARDIOVASCULAR: Normal. OSSEOUS STRUCTURES: No significant abnormalities. VISUALIZED UPPER ABDOMEN: Normal. OTHER FINDINGS: None. IMPRESSION: No active pulmonary disease.
[2018-04-06 10:02] LABS: URINE BILIRUBIN NEGATIVE (NEGATIVE); URINE BLOOD MODERATE (NEGATIVE); URINE GLUCOSE (UA) NEGATIVE (NEGATIVE); URINE LEUKOCYTE ESTERASE LARGE Leu/uL (NEGATIVE); URINE PROTEIN NEGATIVE mg/dL (<30 mg/dL)
[2018-04-06 10:06] LABS: URINE COLOR YELLOW (YELLOW)
[2018-04-06 10:07] LABS: URINE APPEARANCE SL CLOUDY (CLEAR)
[2018-04-06 10:46] LABS: URINE RBC 15 - 20 /hpf (0-2); URINE WBC 25 - 30 /hpf (0-6)
[2018-04-06 10:47] LABS: URINE BACTERIA MANY (NEG)
--- NOTE | 2018-04-06 11:04 | ED PDOC ---
Physical Exam Vital Signs Reviewed: Yes Vital Signs Temp Pulse Resp BP Pulse Ox 04/06/18 09:22 65 16 106/58 L 98 04/06/18 06:05 81 18 138/78 98 04/06/18 04:11 97.3 F L 88 18 143/85 100 Temperature: Afebrile Blood Pressure: Normal Pulse: Regular Respiratory Rate: Normal Appearance: Positive for: Well-Appearing, Non-Toxic, Comfortable Pain Distress: None Mental Status: Positive for: Alert and Oriented X 3 Medical Decision Making ED Course and Treatment: 04/06/18 07:40 Patient endorsed to me by Dr. Brady. Patient awaiting psychiatric screening evaluation. Upon re-examination, patient denies any complaints. is cooperative, comfortable, and denies any pain/discomfort. Lab work and Urinalysis results have been reviewed with patient. Patient denies any dysuria/ frequency, or any fever/chills. Awaiting final mental health disposition. 04/06/18 16:01 Patient seen and evaluated by PES, patient will be admitted to psychiatry floor. I have discussed ua results with patient in length. He denies unprotected sex. Denies rectal pain. Denies penile discharge or testicular pain. He denies prior hx of STD. Bactrim po ordered. At this time, patient is afebrile, denies dysuria, has no cva tenderness or nausea. Have recommended medical consult during psychiatric admission. - Lab Interpretations Lab Results: 04/06/18 04:29 04/06/18 04:29 Lab Results 04/06/18 05:30: Urine Color Yellow, Urine Appearance Sl cloudy, Urine pH 6.0, Ur Specific [place] 1.015, Urine Protein Negative, Urine Glucose (UA) Negative, Urine Ketones Negative, Urine Blood Moderate H, Urine Nitrate Negative, Urine Bilirubin Negative, Urine Urobilinogen 1.0 H, Ur Leukocyte Esterase Large H, Urine RBC 15 - 20, Urine WBC 25 - 30, Ur Epithelial Cells None, Urine Bacteria Many 04/06/18 05:30: Urine Opiates Screen Negative, Urine Methadone Screen Negative, Ur Barbiturates Screen Negative, Ur Phencyclidine Scrn Negative, Ur Amphetamines Screen Negative, U Benzodiazepines Scrn Negative, U Oth Cocaine Metabols Negative, U Cannabinoids Screen Positive H 04/06/18 04:29: Alcohol, Quantitative < 10 04/06/18 04:29: WBC 7.8 D, RBC 4.59, Hgb 13.7 L, Hct 38.5 L, MCV 83.9, MCH 29.8 , MCHC 35.6, RDW 12.1, Plt Count 372, MPV 10.4 04/06/18 04:29: Sodium 142, Potassium 3.4 L, Chloride 102, Carbon Dioxide 28, Anion Gap 15, BUN 15, Creatinine 0.9, Est GFR ( Amer) > 60, Est GFR (Non- Af Amer) > 60, Random Glucose 103, Calcium 9.1, Total Bilirubin 0.5, AST 13 L D , ALT 18, Alkaline Phosphatase 61, Total Protein 8.0, Albumin 4.4, Globulin 3.5 , Albumin/Globulin Ratio 1.3 - RAD Interpretation Radiology Orders: 04/06/18 04:12 CHEST PORTABLE [RAD] Stat - Medication Orders Current Medication Orders: Discontinued Medications Potassium Chloride (K-Dur 20 Meq Er Tab) 20 meq PO STAT STA Stop: 04/06/18 05:33 Last Admin: 04/06/18 06:06 Dose: 20 meq Trimethoprim/Sulfamethoxazole (Bactrim Ds Tab) 1 tab PO STAT STA PRN Reason: Protocol Stop: 04/06/18 15:49 - Scribe Statement The provider has reviewed the documentation as recorded by the Lauren Isaacs Provider Scribe Attestation: All medical record entries made by the Scribe were at my direction and personally dictated by me. I have reviewed the chart and agree that the record accurately reflects my personal performance of the history, physical exam, medical decision making, and the department course for this patient. I have also personally directed, reviewed, and agree with the discharge instructions and disposition. Disposition/Present on Arrival - Present on Arrival Any Indicators Present on Arrival: No History of DVT/PE: No History of Uncontrolled Diabetes: No Urinary Catheter: No History of Decub. Ulcer: No History Surgical Site Infection Following: None - Disposition Have Diagnosis and Disposition been Completed?: Yes Diagnosis: Schizophrenia, UTI (urinary tract infection) Disposition: HOSPITALIZED Disposition Time: 16:00 Patient Plan: Admission Patient Problems: Current Active Problems Problem Status Onset Schizophrenia Acute UTI (urinary tract infection) Acute Condition: STABLE Referrals: FAMILY PROVIDER,NO [Primary Care Provider] - Follow up with primary Forms: [email or web address] (Turkmen)
--- NOTE | 2018-04-06 15:06 | CARD ---
APPROVED REPORT Date of service: 04/06/2018 EKG Measurement Heart [id number] <Conclusion> Normal sinus rhythm Minimal voltage criteria for LVH, may be normal variant Borderline ECG
[2018-04-06] MEDS ORDERED: Tmp-Smz 800 mg-160 mg DS Tab PO STA (15:48)
[2018-04-06 20:28] VITALS: O2SAT 100
[2018-04-06] MEDS ORDERED: Magnesium Hydroxide Susp 30 ml UD PO PRN (21:46)
[2018-04-06] MEDS ORDERED: Alum-Mag Hydrox-Simethicone Susp (30 mL) PO PRN (21:46)
--- NOTE | 2018-04-07 00:13 | PCM.BM ---
<Noah Flores - Last Filed: 04/07/18 00:10> Treatment Plan Problems - Problems identified on initial assessmt Altered Thought Process Date Initiated: 04/06/18 Time Initiated: 21:00 Assessment reference: NA Status: Active Defensive Coping Date Initiated: 04/06/18 Time Initiated: 21:00 Assessment reference: NA Status: Active Social Isolation Date Initiated: 04/06/18 Time Initiated: 21:00 Assessment reference: NA Status: Active Medication Nonadherence Date Initiated: 04/06/18 Time Initiated: 21:00 Assessment reference: NA Status: Active Treatment assets and liabiliti Patient Assests: adapts well, cooperative, self-reliant, ADL independent, physically healthy, negotiates basic needs, cognitively intact Patient Liabilities: live alone, financial problems, poor support system, relationship conflicts, substance abuse - Milieu Protocol Maintain good personal hygiene: daily Encourage regular showers, daily Remind patient to perform daily oral care, daily Assist patient to perform ADL's Conduct patient checks and document Observation sheet: Q15 minutes Maintain personal safety: every shift Educate patient to report safety concerns to staff, every shift Monitor environment for contraband/sharps Medication safety: Monitor for expected outcome, potential side effects: every shift, Assess barriers to learning: every shift, Assess readiness for medication education: every shift Discharge/Continuing Care - Education Needs Education Needs: Patient Medication, Patient Diagnosis/Disease Process, Patient Coping Skills, Patient Community resources, Patient Activities of Daily Living, Patient Nutrition, Patient Health Practices/Safety, Patient Personal Hygiene/ Grooming, Patient Aftercare Safety Plan - Discharge Discharge Criteria: Tolerates medication w/o severe side effects, Free of paranoid thoughts, Normal sleep pattern, Ability to care for self, Reduction of target symptoms <Anastasiya Boateng - Last Filed: 04/07/18 14:54> - Diagnosis (1) Cannabis abuse Status: Acute Interventions: 04/07/18 14:54 Psychoeducation/psychotherapy Psychopharmacology/adjustment of medications as needed/ monitoring possible side effects Evaluate pt on daily basis Compliance with medications and follow up appointments Long acting medication if pt is noncompliant with pill form Suicide and homicide risk assessment and prevention, coping strategies, safety plan Relapse prevention Reduction of symptoms Improve functional status Possible assertive community treatment Cognitive behavioral therapy Family involvement Possible social skill training as outpatient (2) Schizophrenia Status: Acute Interventions: 04/07/18 14:55 Monitoring withdrawal symptoms Medical detoxification Pharmacotherapy for alcohol/benzos/opioid dependence Maintaining sobriety Relapse prevention Possible rehabilitation Motivational interviewing 12-step programs: AA meetings <Luzma Gilbert - Last Filed: 04/07/18 16:42> Family Contact Family involvement: Famliy/SO not involved
[2018-04-07 07:58] LABS: ALB/GLOB RATIO 1.2 (1.1-1.8); ALBUMIN 4.4 g/dL (3.0-4.8); ALT/SGPT 13 U/L (7-56); AST/SGOT 24 U/L (17-59); BLOOD UREA NITROGEN 12 mg/dL (7-21); CALCIUM 9.5 mg/dL (8.4-10.5); GFR AFRICAN-AMERICAN > 60; GFR NON-AFRICAN AMERICAN > 60; GLUCOSE,FASTING 104 mg/dL (65-110); HDL CHOLESTEROL 23 mg/dL (29-60)
[2018-04-07 08:08] LABS: LDL CHOLESTEROL 124 mg/dL (0-129)
--- NOTE | 2018-04-07 14:54 | PCM.PSYCH ---
Initial Psychiatric Evaluation - Initial Psychiatric Evaluation Type of Admission: Voluntary Legal Status: Capacity (pt has capacity to sign consent for treatment) Chief Complaint (in patient's own words): "...." pt is not talking Patient's Reaction to Hospitalization: pt was admitted to the psych inpatient unit for evaluation of disorganized/ catatonic behavior, pt was screened by [facility] [place], did not meet criteria for screening, pt was willing to be admitted, signed consent for treatment, as per report pt had capacity to do so. History of Present Illness and Precipitating Events: 23 yo single male with history of mood and psychotic symptoms, most likely schizophrenia spectrum disorder, cannabis use was BIB by police [place], pt has h/o of being found wandering in traffic, chasing cars down, pt has h/o one psych admission in 2016, this scenario writer is very familiar with this pt from the previous admission. pt requires further evaluation, stabilization, meds initiation and titration. pt was seen at the treatment team meeting, pt is completely mute, not talking, pt communicated with nodding his head. acceptable personal hygiene, fair ADLs. pt nodded positive on the following questions: not taking meds not feeling good homelessness pt denied feeling hopeless/helpless denied psychotic symptoms, but obviously disorganized and giggling inappropriately. as per previous record tp had h/o walking into the traffic, was jumping up and down in ED, h/o trying to elope. pt denied using drugs, but cannabis positive in urine. pt shrugged his shoulders when this scenario writer confronted. pt denied smoking, denied drinking alcohol. as per h/o, pt was treated with depakote and risperdal. PSYCHIATRIC HISTORY Patient reports one prior recent admission at [facility] x 7 days and that he was just discharged, one admission to [facility] 2016, Denies history of suicide attempts or outpatient treatment. SOCIAL HISTORY (as per previous admission) Born in [place], [place]. Raised partly in [place] and partly in [place]. He is single and has no children. Patient resides with his mother. Graduated high school. Works at [employer] located in [place] on [address] Denies any arrests. Minimizes marijuana use, indicates last use was 2 days ago. Denies other drug or alcohol use. Denies tobacco use. 04/06/18 04:29 04/07/18 07:15 Lab Results 04/07/18 07:15: TSH 3rd Generation 0.97 04/07/18 07:15: Sodium 143, Potassium 4.0, Chloride 104, Carbon Dioxide 28, Anion Gap 14, BUN 12, Creatinine 1.2, Est GFR ( Amer) > 60, Est GFR (Non- Af Amer) > 60, Random Glucose 104, Fasting Glucose 104, Calcium 9.5, Total Bilirubin 0.6, AST 24, ALT 13, Alkaline Phosphatase 67, Total Protein 7.9, Albumin 4.4, Globulin 3.5, Albumin/Globulin Ratio 1.2, Triglycerides 96, Cholesterol 197, LDL Cholesterol Direct 124, HDL Cholesterol 23 L 04/06/18 05:30: Urine Color Yellow, Urine Appearance Sl cloudy, Urine pH 6.0, Ur Specific [place] 1.015, Urine Protein Negative, Urine Glucose (UA) Negative, Urine Ketones Negative, Urine Blood Moderate H, Urine Nitrate Negative, Urine Bilirubin Negative, Urine Urobilinogen 1.0 H, Ur Leukocyte Esterase Large H, Urine RBC 15 - 20, Urine WBC 25 - 30, Ur Epithelial Cells None, Urine Bacteria Many 04/06/18 05:30: Urine Opiates Screen Negative, Urine Methadone Screen Negative, Ur Barbiturates Screen Negative, Ur Phencyclidine Scrn Negative, Ur Amphetamines Screen Negative, U Benzodiazepines Scrn Negative, U Oth Cocaine Metabols Negative, U Cannabinoids Screen Positive H 04/06/18 04:29: Alcohol, Quantitative < 10 04/06/18 04:29: WBC 7.8 D, RBC 4.59, Hgb 13.7 L, Hct 38.5 L, MCV 83.9, MCH 29.8 , MCHC 35.6, RDW 12.1, Plt Count 372, MPV 10.4 04/06/18 04:29: Sodium 142, Potassium 3.4 L, Chloride 102, Carbon Dioxide 28, Anion Gap 15, BUN 15, Creatinine 0.9, Est GFR ( Amer) > 60, Est GFR (Non- Af Amer) > 60, Random Glucose 103, Calcium 9.1, Total Bilirubin 0.5, AST 13 L D , ALT 18, Alkaline Phosphatase 61, Total Protein 8.0, Albumin 4.4, Globulin 3.5 , Albumin/Globulin Ratio 1.3 Vital Signs Temp Pulse Resp BP Pulse Ox 04/07/18 07:04 98.1 F 64 20 118/78 04/06/18 20:51 97.6 F 66 16 121/84 100 04/06/18 20:28 77 18 120/70 100 04/06/18 16:58 98.0 F 80 17 123/77 99 04/06/18 09:22 65 16 106/58 L 98 04/06/18 06:05 81 18 138/78 98 04/06/18 04:11 97.3 F L 88 18 143/85 100 medical h/o: pt UA was positive for infection gram -rods, pt was given bactrim in ED, medical consult called. pt c/o painful urination. Current Medications: Active Medications Generic Name Dose Route Start Last Admin Trade Name Freq PRN Reason Stop Dose Admin Acetaminophen 650 mg 04/06/18 21:46 Tylenol 325mg Tab PO Q6H PRN Pain, moderate (4-7) Al Hydrox/Mg Hydrox/Simethicone 30 ml 04/06/18 21:46 Maalox Plus 30 Ml PO DAILY PRN Upset Stomach Lorazepam 1 mg 04/06/18 21:44 Ativan PO Q4 PRN Anxiety Protocol Magnesium Hydroxide 30 ml 04/06/18 21:46 Milk Of Magnesia PO DAILY PRN Constipation Past Psychiatric History - Past Psychiatric History Previous Treatment History: Inpatient Prior Professional Help: see HPI Prior Psychiatric Treatment: see HPI At what hospital: see HPI Duration: see HPI Nature of Treatment: see HPI Explanation of prior treatment: see HPI History of Abuse: see HPI History of ETOH/Drug Use: see HPI History of Family Illness: unknown Pertinent Medical Hx (Current Medical&Sleep Prob, Allergies): Allergies Allergy/AdvReac Type Severity Reaction Status Date / Time No Known Allergies Allergy Verified 04/06/18 22:00 Benztropine [Cogentin] 1 mg PO AMHS #0 tab 05/05/16 Divalproex [Depakote ER(ONCE DAILY)] 1,500 mg PO HS #0 ter 05/05/16 OLANZapine [Zyprexa Zydis] 10 mg PO AMHS #0 odt 05/05/16 Review of Systems - Review of Systems Systems not reviewed;Unavailable: Acuity of Condition - EENT Eyes: As Per HPI Ears: As Per HPI Nose/Mouth/Throat: As Per HPI - Cardiovascular Cardiovascular: As Per HPI - Respiratory Respiratory: As Per HPI - Gastrointestinal Gastrointestinal: As Per HPI - Genitourinary Genitourinary: As Per HPI - Reproductive: Male Reproductive:Male: As Per HPI - Musculoskeletal Musculoskeletal: As Par HPI - Integumentary Integumentary: As Per HPI - Neurological Neurological: As Per HPI - Psychiatric Psychiatric: As Per HPI - Endocrine Endocrine: As Per HPI - Hematologic/Lymphatic Hematologic: As Per HPI Mental Status Examination - Personal Presentation Personal Presentation: Looks stated age - Affect Affect: Flat - Motor Activity Motor Activity: Psychomotor Retardation - Reliability in Providing Information Reliability in Providing Information: Other (pt was completely mute) - Speech Speech: Other (mute) - Formal Thought Process Formal Thought Process: Other (disorganized) - Risk Risk: Diminished functioning - Strength & Assets Inventory Strength & Assets Inventory: Cooperative - Limitations Limitations: Other (pt is mute, homelessness) DSM 5 DX - DSM 5 DSM 5 Diagnosis: r/o schizophrenia r/o schizoaffective cannabis abuse - Recommended/Plan of Treatment Treatment Recommendations and Plan of Treatment: Milieu/structure/supportive therapy Medical consult was called SW consultation for discharge plan and social issues Med management risperdal 0.5mg po tid ativan 0.5mg po bid for catatonia trazodone 50mg po for insomnia PRN meds Family involvement Follow up on labs Will monitor closely Pt was educated about risk/benefits and alternatives of medications, coping strategies (safety plan, suicide prevention), relapse prevention, importance of follow up with psychiatrist and therapist, stay away from drugs/alcohol/smoking Projected ELOS: 7days Prognosis: guarded Discharge Plan and Discharge Criteria: Pt will be not depressed or manic, will be more hopeful, will be not psychotic or anxious, will be not having thoughts of harming self or others, will be tolerating medications well, will not have major side effects, will be able to function, will not pose threat to self or others. - Smoking Cessation Smoking Cessation Initiated: No Reason for not providing: pt deneid smoking
--- NOTE | 2018-04-07 15:49 | CP.PCM.CON ---
<Cesar Rocha - Last Filed: 04/07/18 15:38> History of Present Illness - History of Present Illness History of Present Illness: Internal Medicine Consultation CC: Dysuria HPI: Mr. Leiva is a 23 year old male with a past medical history significant for inguinal hernia s/p surgical repair, schizophrenia and cannabis use who presented to [facility] after he was found to have bizarre behavior and was then admitted to the [facility]. Patient reports that for the past week he has been experiencing mild burning pain with urination and urine that is darker than usual. He has never experienced this before in the past. He denies any fevers, chills, headache, chest pain, SOB, abdominal pain, N/V/D/C, penile discharge, hematuria, skin lesions, history of STD's, or any new sexual partners. Patient denies being sexually active at this time. In the ED, he was found to have large LE, 25-30 WBC's and many bacteria on his UA. He was given one dose of Bactrim DS. A UDS was noted to be positive for marijuana. PMH: As stated above PSH: Right inguinal hernia repair Family History: Denies any history of cancer or urological complaints Social History: Denies any tobacco, alcohol or illicit drug use (please see UDS results above); Homeless Allergies: NKDA Home Medications: As per MAR Review of Systems - Review of Systems Review of Systems: As stated in HPI, otherwise negative Past Patient History - Infectious Disease Hx of Infectious Diseases: None - Tetanus Immunizations Tetanus Immunization: Unknown - Past Medical History & Family History Past Medical History?: No - Past Social History Smoking Status: Heavy Smoker > 10 Cigarettes Daily - CARDIAC Hx Cardiac Disorders: No - PULMONARY Hx Respiratory Disorders: No - NEUROLOGICAL Hx Neurological Disorder: No - HEENT Hx HEENT Problems: No - RENAL Hx Chronic Kidney Disease: No - ENDOCRINE/METABOLIC Hx Endocrine Disorders: No - HEMATOLOGICAL/ONCOLOGICAL Hx Blood Disorders: No - INTEGUMENTARY Hx Dermatological Problems: No - MUSCULOSKELETAL/RHEUMATOLOGICAL Hx Musculoskeletal Disorders: No - GASTROINTESTINAL Hx Gastrointestinal Disorders: No - GENITOURINARY/GYNECOLOGICAL Hx Genitourinary Disorders: No - PSYCHIATRIC Hx Schizophrenia: Yes Hx Substance Use: Yes - SURGICAL HISTORY Hx Surgeries: Yes Hx Herniorrhaphy: Yes (Right Inguinal) - ANESTHESIA Hx Anesthesia: No Meds Allergies/Adverse Reactions: Allergies Allergy/AdvReac Type Severity Reaction Status Date / Time No Known Allergies Allergy Verified 04/06/18 22:00 - Medications Medications: Current Medications Acetaminophen (Tylenol 325mg Tab) 650 mg PO Q6H PRN PRN Reason: Pain, moderate (4-7) Al Hydrox/Mg Hydrox/Simethicone (Maalox Plus 30 Ml) 30 ml PO DAILY PRN PRN Reason: Upset Stomach Lorazepam (Ativan) 1 mg PO Q4 PRN; Protocol PRN Reason: Anxiety Lorazepam (Ativan) 0.5 mg PO BID JULIET PRN Reason: Protocol Magnesium Hydroxide (Milk Of Magnesia) 30 ml PO DAILY PRN PRN Reason: Constipation Risperidone (Risperdal Tab) 0.5 mg PO BID JULIET PRN Reason: Protocol Risperidone (Risperdal Tab) 0.5 mg PO HS JULIET PRN Reason: Protocol Trazodone HCl (Desyrel) 50 mg PO HS JULIET Ziprasidone (Geodon Inj) 20 mg IM Q6H PRN; Protocol PRN Reason: severe agitaiton/psychosis Ziprasidone (Geodon Cap) 20 mg PO Q6H PRN; Protocol PRN Reason: psychosis/agitation Physical Exam - Constitutional Appears: Non-toxic, No Acute Distress - Head Exam Head Exam: ATRAUMATIC, NORMOCEPHALIC - Eye Exam Eye Exam: EOMI, Normal appearance - ENT Exam ENT Exam: Mucous Membranes Moist - Neck Exam Neck exam: Positive for: Full Rom, Normal Inspection. Negative for: Lymphadenopathy - Respiratory Exam Respiratory Exam: Clear to Auscultation Bilateral, NORMAL BREATHING PATTERN. absent: Accessory Muscle Use, Chest Wall Tenderness, Decreased Breath Sounds, Prolonged Expiratory Phase, Rales, Rhonchi, Wheezes, Respiratory Distress, Stridor - Cardiovascular Exam Cardiovascular Exam: REGULAR RHYTHM, RRR, +S1, +S2. absent: Bradycardia, Tachycardia, Clicks, Diastolic murmur, Gallop, Irregular Rhythm, JVD, Rubs, +S4 , Systolic Murmur - GI/Abdominal Exam GI & Abdominal Exam: Normal Bowel Sounds, Soft. absent: Bruit, Diminished Bowel Sounds, Distended, Firm, Guarding, Hernia, Hyperactive Bowel Sounds, Hypoactive Bowel Sounds, Mass, Organomegaly, Pulsatile Mass, Rebound, Rigid, Tenderness - Extremities Exam Extremities exam: Positive for: full ROM, normal capillary refill, normal inspection, pedal pulses present. Negative for: calf tenderness, joint swelling , pedal edema, tenderness - Back Exam Back exam: absent: CVA tenderness (L), CVA tenderness (R) - Neurological Exam Neurological exam: Alert, Normal Gait, Oriented x3 - Skin Skin Exam: Dry, Intact, Normal Color, Warm Results - Vital Signs Recent Vital Signs: Last Vital Signs Temp 98.1 F 04/07/18 07:04 Pulse 64 04/07/18 07:04 Resp 20 04/07/18 07:04 BP 118/78 04/07/18 07:04 Pulse Ox 100 04/06/18 20:51 - Labs Result Diagrams: 04/06/18 04:29 04/07/18 07:15 Labs: Laboratory Results - last 24 hr 04/07/18 04/07/18 07:15 07:15 Sodium 143 Potassium 4.0 Chloride 104 Carbon Dioxide 28 Anion Gap 14 BUN 12 Creatinine 1.2 Est GFR ( Amer) > 60 Est GFR (Non-Af Amer) > 60 Random Glucose 104 Fasting Glucose 104 Calcium 9.5 Total Bilirubin 0.6 AST 24 ALT 13 Alkaline Phosphatase 67 Total Protein 7.9 Albumin 4.4 Globulin 3.5 Albumin/Globulin Ratio 1.2 Triglycerides 96 Cholesterol 197 LDL Cholesterol Direct 124 HDL Cholesterol 23 L TSH 3rd Generation 0.97 Assessment & Plan - Assessment and Plan (Free Text) Assessment: 23 year old male with a past medical history significant for inguinal hernia s/ p surgical repair, schizophrenia and cannabis use who presented to [facility] after he was found to have bizarre behavior and was then admitted to the [facility]. In the ED, he was found to have large LE, 25-30 WBC's and many bacteria on his UA. He was given one dose of Bactrim DS. A UDS was noted to be positive for marijuana. Plan: 1. UTI -Bactrim DS BID for 3 days (gotten one dose in ED; will give 5 tablets) -Chlamydia serology pending -Encouraged oral hydration and protected sexual intercourse 2. Cannabis Use -Encouraged discontinuation Patient seen and case discussed with attending, Dr. Humphrey. Thank you for allowing us to participate in the care of this patient. We will follow up all results of ordered serologic studies. Please reconsult as needed for any new complaints. Porfirio PGY2 - Date & Time Date: 04/07/18 Time: 15:52 <Kristina Humphrey - Last Filed: 04/07/18 16:09> Meds - Medications Medications: Current Medications Acetaminophen (Tylenol 325mg Tab) 650 mg PO Q6H PRN PRN Reason: Pain, moderate (4-7) Al Hydrox/Mg Hydrox/Simethicone (Maalox Plus 30 Ml) 30 ml PO DAILY PRN PRN Reason: Upset Stomach Lorazepam (Ativan) 1 mg PO Q4 PRN; Protocol PRN Reason: Anxiety Lorazepam (Ativan) 0.5 mg PO BID JULIET PRN Reason: Protocol Magnesium Hydroxide (Milk Of Magnesia) 30 ml PO DAILY PRN PRN Reason: Constipation Risperidone (Risperdal Tab) 0.5 mg PO BID JULIET PRN Reason: Protocol Risperidone (Risperdal Tab) 0.5 mg PO HS JULIET PRN Reason: Protocol Trazodone HCl (Desyrel) 50 mg PO HS JULIET Trimethoprim/Sulfamethoxazole (Bactrim Ds Tab) 1 tab PO BID JULIET PRN Reason: Protocol Stop: 04/09/18 16:01 Ziprasidone (Geodon Inj) 20 mg IM Q6H PRN; Protocol PRN Reason: severe agitaiton/psychosis Ziprasidone (Geodon Cap) 20 mg PO Q6H PRN; Protocol PRN Reason: psychosis/agitation Results - Vital Signs Recent Vital Signs: Last Vital Signs Temp 98.1 F 04/07/18 07:04 Pulse 64 04/07/18 07:04 Resp 20 04/07/18 07:04 BP 118/78 04/07/18 07:04 Pulse Ox 100 04/06/18 20:51 - Labs Result Diagrams: 04/06/18 04:29 04/07/18 07:15 Labs: Laboratory Results - last 24 hr 04/07/18 04/07/18 07:15 07:15 Sodium 143 Potassium 4.0 Chloride 104 Carbon Dioxide 28 Anion Gap 14 BUN 12 Creatinine 1.2 Est GFR ( Amer) > 60 Est GFR (Non-Af Amer) > 60 Random Glucose 104 Fasting Glucose 104 Calcium 9.5 Total Bilirubin 0.6 AST 24 ALT 13 Alkaline Phosphatase 67 Total Protein 7.9 Albumin 4.4 Globulin 3.5 Albumin/Globulin Ratio 1.2 Triglycerides 96 Cholesterol 197 LDL Cholesterol Direct 124 HDL Cholesterol 23 L TSH 3rd Generation 0.97 Attending/Attestation - Attestation I have personally seen and examined this patient.: Yes I have fully participated in the care of the patient.: Yes I have reviewed all pertinent clinical information: Yes Notes (Text): 04/07/18 16:07 Medical record note made by the resident after discussion with my direction and input after the patient was personally seen and examined by me. I have reviewed the chart and agree that the record accurately reflects by personal performance of the history, physical exam, data review, and medical decision-making, in the course for the patient. I have also personally directed the plan of care. 23 yrs old with partially treated UTI, Afebrile, no leukocytosis, Agreed with PO antibiotics,will check for chlymydia There is no other active medical issue at this time.We will sign off. Please call us back if any question. Management plan was discussed in detail with patient. Education was provided.
[2018-04-07] MEDS: Tmp-Smz 800 mg-160 mg DS Tab PO SCH (17:12)
[2018-04-08] MEDS: Tmp-Smz 800 mg-160 mg DS Tab PO SCH ×2 (10:14→15:38)
--- NOTE | 2018-04-08 10:25 | PCM.PYCHPN ---
Psychiatric Progress Note - Psychiatric Progress Note Patient seen today, length of contact: 25 min Problems Identified/Issues Discussed: 23 yo single male with history of mood and psychotic symptoms, most likely schizophrenia spectrum disorder, at least one psychiatric admission at [facility] in [place], +cannabis use was [place] by police [place]. Patient was voluntarily admitted after he presented mute and disorganized in the ER. On the unit he has been quiet, minimally verbal and interactive. Even with encouragement he could not participate meaningfully in treatment team meeting yesterday. Patient has been taking his medications and there have been no major behavioral issues. Hasn't been observed to be responding to internal stimuli though appears withdrawn and preoccupied. He is a little more interactive and spontaneous when I meet with him this morning. He generally denies any new concerns including depression, hallucinations, pain, discomfort or side effects. Indicates that he slept well and has a good appetite. Speech remains underproductive and responses are consistent and relevant to questioning ( though perfunctory). Diagnostic Results: r/o schizophrenia r/o schizoaffective cannabis abuse Medication Change: No Medical Record Reviewed: Yes Mental Status Examination - Affect Affect: Flat - Formal Thought Process Formal Thought Process: Other (disorganized) - Homicidal Ideation Homicidal Ideation: No Goal/Treatment Plan - Goal/Treatment Plan Progress Toward Problem(s) and Goals/Treatment Plan: * c/w Milieu/structure/supportive therapy as tolerated * risperdal 0.5mg po tid for disorganization * ativan 0.5 mg po bid for catatonia * trazodone 50 mg po HS, off label for insomnia * Awaiting medical f/u * No new labs thus far * Vitals reviewed and noted below: Selected Entries 04/08/18 06:36 Temperature 97.3 F L Pulse Rate 74 Respiratory 22 Rate Blood Pressure 119/62
[2018-04-09] MEDS: Tmp-Smz 800 mg-160 mg DS Tab PO SCH ×2 (08:52→16:59)
--- NOTE | 2018-04-09 09:19 | PCM.PYCHPN ---
Psychiatric Progress Note - Psychiatric Progress Note Patient seen today, length of contact: 25 min Problems Identified/Issues Discussed: Patient is a 23 yo single male with history of mood and psychotic symptoms, most likely schizophrenia spectrum disorder, at least one psychiatric admission [place] [facility] [place], +cannabis use was BIB by police [place]. Patient was voluntarily admitted after he presented mute and disorganized in the ER. On the unit he has been quiet, minimally verbal and minimally interactive. Even with encouragement he could not participate meaningfully in treatment team meeting on Tuesday and remained isolative throughout the day yesterday. Patient has been taking his medications and there have been no major behavioral issues. For the most part, he hasn't been observed to be responding to internal stimuli though was noted to be laughing to himself yesterday. He appears withdrawn and preoccupied. He is a little more interactive and spontaneous when I meet with him this morning. I request that he spends more time out of his room and attempt to engage in unit activities and he agrees to try. Patient generally denies any new concerns including depression, hallucinations, pain, discomfort or side effects. Indicates that he slept well and has a good appetite. Speech remains underproductive and responses are consistent and relevant to questioning (though perfunctory). Diagnostic Results: r/o schizophrenia r/o schizoaffective cannabis abuse Medication Change: No Medical Record Reviewed: Yes Mental Status Examination - Affect Affect: Flat - Formal Thought Process Formal Thought Process: Other (disorganized) - Homicidal Ideation Homicidal Ideation: No Goal/Treatment Plan - Goal/Treatment Plan Progress Toward Problem(s) and Goals/Treatment Plan: * c/w Milieu/structure/supportive therapy as tolerated * risperdal 0.5mg po tid increased to 1 mg AM and PM and 0.5 mg HS for disorganization * ativan 0.5 mg po bid increased to 0.5 mg AM and 1 mg PM for catatonia * trazodone 50 mg po HS, off label for insomnia * Appreciate f/u by Dr. Humphrey on 04/07/18~there were no active medical issues so provider signed off * No new weekend lab results * Vitals reviewed and noted below: Selected Entries 04/09/18 07:22 Temperature 97.5 F L Pulse Rate 91 H Respiratory 18 Rate Blood Pressure 99/68 L
[2018-04-10 07:40] VITALS: RESP 20
--- NOTE | 2018-04-10 09:50 | PCM.PYCHPN ---
Psychiatric Progress Note - Psychiatric Progress Note Patient seen today, length of contact: 25 min Patient Chief Complaint: "very good" Problems Identified/Issues Discussed: Patient is a 23 yo single male with history of mood and psychotic symptoms, most likely schizophrenia spectrum disorder, at least one psychiatric [place] at [facility] [place], +cannabis use was [place]IB by police [place]. Patient was voluntarily admitted after he presented mute and disorganized in the ER. On the unit he has been quiet, minimally verbal and minimally interactive. Even with encouragement he could not participate meaningfully in treatment team meeting on Tuesday and remained isolative throughout the day on Tuesday. Patient showed some improvement by Tuesday. He was a little more visible, interactive and spontaneous during my interview and per staff observations. Patient has been taking his medications and there have been no major behavioral issues. For the most part, he hasn't been observed to be responding to internal stimuli though was noted to be laughing to himself on Tuesday. I meet with patient in the hallway this morning. He still appears flat, withdrawn and preoccupied. I discuss this observation with him this morning and he doesnt really react though consistently denies hallucinations or depression. He even ( flatly) reports his mood as "pretty good". Patient generally denies any new concerns including pain, discomfort or side effects. Indicates that he slept well and has a good appetite. Speech remains underproductive and responses are consistent and relevant to questioning ( though perfunctory). Insight and judgement are slowly improving Diagnostic Results: r/o schizophrenia r/o schizoaffective cannabis abuse Medication Change: No Medical Record Reviewed: Yes Mental Status Examination - Affect Affect: Flat - Formal Thought Process Formal Thought Process: Other (disorganized) - Homicidal Ideation Homicidal Ideation: No Goal/Treatment Plan - Goal/Treatment Plan Progress Toward Problem(s) and Goals/Treatment Plan: * c/w Milieu/structure/supportive therapy as tolerated * risperdal 0.5mg po tid increased to 1 mg AM and PM and 0.5 mg HS for disorganization * ativan 0.5 mg po bid increased to 0.5 mg AM and 1 mg PM for catatonia * trazodone 50 mg po HS, off label for insomnia * Appreciate f/u by Dr. Humphrey on 04/07/18~there were no active medical issues so provider signed off * No new lab results * Vitals reviewed and noted below: Selected Entries 04/10/18 07:00 Temperature 97.5 F L Pulse Rate 107 H Respiratory 20 Rate Blood Pressure 94/61 L
--- NOTE | 2018-04-11 10:45 | PCM.PYCHPN ---
Psychiatric Progress Note - Psychiatric Progress Note Patient seen today, length of contact: 25 min Patient Chief Complaint: "fine Problems Identified/Issues Discussed: Patient is a 23 yo single male with history of mood and psychotic symptoms, most likely schizophrenia spectrum disorder, at least one psychiatric [place] [facility] [place], +cannabis use was [place]IB by police [place]. Patient was voluntarily admitted after he presented mute and disorganized in the ER. On the unit he has been quiet, minimally verbal and minimally interactive. Even with encouragement he could not participate meaningfully in treatment team meeting on Tuesday and remained isolative throughout the day on Tuesday. Patient showed some improvement by Tuesday. He was a little more visible, interactive and spontaneous during my interview and per staff observations. Patient has been taking his medications and there have been no major behavioral issues. For the most part, he hasn't been observed to be responding to internal stimuli though was noted to be laughing to himself on Tuesday. I meet with patient in the dayroom this morning. He still appears flat, shy and quiet but focus and awareness are improving. He is smiles and responds a little more readily. Patient has been more visible on the unit. He continues to denies hallucinations or depression. He reports that he is doing okay. Reactivity and spontaneity seems to be improving Patient generally denies any new concerns including pain, discomfort or side effects. Indicates that he slept well and has a good appetite. Speech remains underproductive and responses are consistent and relevant to questioning (and less perfunctory). Insight and judgement are slowly improving Diagnostic Results: r/o schizophrenia r/o schizoaffective cannabis abuse Medication Change: Yes (increased ativan and risperdal) Medical Record Reviewed: Yes Mental Status Examination - Cognitive Function Orientation: Person, Place, Situation Attention: WNL Association: WNL - Mood Mood: Neutral - Affect Affect: Flat (improving reactivity and spontaneity) - Formal Thought Process Formal Thought Process: No Impairment, Other (less disorganized, more focused and predictable) - Suicidal Ideation Suicidal Ideation: No - Homicidal Ideation Homicidal Ideation: No Goal/Treatment Plan - Goal/Treatment Plan Progress Toward Problem(s) and Goals/Treatment Plan: * c/w Milieu/structure/supportive therapy as tolerated * risperdal 0.5mg po tid increased to 1 mg AM and PM and 1 mg HS for disorganization on 04/11/18 * ativan 0.5 mg po bid increased to 1 mg AM and 1 mg PM for catatonia on 04/11/18 * trazodone 50 mg po HS, off label for insomnia * Appreciate f/u by Dr. Humphrey on 04/07/18~there were no active medical issues so provider signed off * No new lab results * I spoke with patient regarding his compliance and injections and he refuses depot medication * Vitals reviewed and noted below: Selected Entries 04/11/18 07:03 Temperature 97.6 F Pulse Rate 79 Respiratory 20 Rate Blood Pressure 115/75
--- NOTE | 2018-04-12 10:26 | PCM.PYCHPN ---
Psychiatric Progress Note - Psychiatric Progress Note Patient seen today, length of contact: 25 min Patient Chief Complaint: "fine Problems Identified/Issues Discussed: Patient is a 23 yo single male with history of mood and psychotic symptoms, most likely schizophrenia spectrum disorder, at least one psychiatric admission at [facility] [place], +cannabis use was BIB by police [place]. Patient was voluntarily admitted after he presented mute and disorganized in the ER. On the unit he has been quiet, minimally verbal and minimally interactive. Even with encouragement he could not participate meaningfully in treatment team meeting last Tuesday and remained isolative throughout the day on Tuesday. Patient started showing some improvement by Tuesday. He has been more visible, interactive and spontaneous during my interviews and per staff observations. Patient has been taking his medications and there have been no major behavioral issues. For the most part, he hasn't been observed to be responding to internal stimuli though was noted to be laughing to himself on Tuesday. There have been no further episodes on the unit thus far. I meet with patient in the hallway this morning. He still appears flat, shy and quiet but focus, spontaneity and awareness are improving. He smiles and responds a little more readily. He continues to denies hallucinations or depression. He reports that he is doing okay. Patient generally denies any new concerns including pain, discomfort or side effects. Indicates that he slept well and has a good appetite. Speech remains underproductive and responses are consistent and relevant to questioning (and less perfunctory). Insight and judgement are slowly improving It is worth noting that patient's understanding about the seriousness of his psychiatric diagnosis and need for treatment continues to be superficial. He is still resistant about taking medications after he is discharged though readily admits improvement since admission. He cannot provide a logical reason for this initially and seems catch himself and eventually provides a somewhat sensible reason in that it is too difficult for him to keep track of this medications and appointments. Diagnostic Results: r/o schizophrenia r/o schizoaffective cannabis abuse Medication Change: No Medical Record Reviewed: Yes Mental Status Examination - Cognitive Function Orientation: Person, Place, Situation Attention: WNL Association: WNL - Mood Mood: Neutral - Affect Affect: Flat (improving reactivity and spontaneity) - Formal Thought Process Formal Thought Process: No Impairment, Other (less disorganized, more focused and predictable) - Suicidal Ideation Suicidal Ideation: No - Homicidal Ideation Homicidal Ideation: No Goal/Treatment Plan - Goal/Treatment Plan Progress Toward Problem(s) and Goals/Treatment Plan: * c/w Milieu/structure/supportive therapy as tolerated * risperdal 0.5mg po tid increased to 1 mg AM and PM and 1 mg HS for disorganization on 04/11/18 * ativan 0.5 mg po bid increased to 1 mg AM and 1 mg PM for catatonia on 04/11/18 * trazodone 50 mg po HS, off label for insomnia * Appreciate f/u by Dr. Humphrey on 04/07/18~there were no active medical issues so provider signed off * No new lab results * I spoke with patient regarding his compliance and injections and he refuses depot medication * Vitals reviewed and noted below: Selected Entries 04/11/18 04/11/18 07:03 16:00 Temperature 97.6 F Pulse Rate 79 85 Respiratory 20 Rate Blood Pressure 115/75 113/84
--- NOTE | 2018-04-13 10:08 | PCM.PYCHPN ---
Psychiatric Progress Note - Psychiatric Progress Note Patient seen today, length of contact: 25 min Patient Chief Complaint: "fine Problems Identified/Issues Discussed: Patient is a 23 yo single male with history of mood and psychotic symptoms, most likely schizophrenia spectrum disorder, at least one psychiatric admission at [facility] [place] in 2016, +cannabis use was BIB by police [place]. Patient was voluntarily admitted after he presented mute and disorganized in the ER. On the unit he was initially very quiet, minimally verbal and minimally interactive. Even with encouragement he could not participate meaningfully in treatment team meeting last Tuesday and remained isolative throughout the day on Tuesday. Patient started showing some improvement by Tuesday. He has been more visible, interactive and spontaneous during my interviews and per staff observations throughout the week. Patient has been taking his medications and there have been no major behavioral issues. For the most part, he hasn't been observed to be responding to internal stimuli though was noted to be laughing to himself on Tuesday. There have been no further similar episodes on the unit thus far. I meet with patient in the hallway this morning. He still appears flat, shy and quiet but focus, spontaneity and awareness are improving. He smiles and responds a little more readily and with more elaboration. He continues to denies hallucinations or depression. He reports that he is doing well. Patient generally denies any new concerns including pain, discomfort or side effects. Indicates that he slept well and has a good appetite. Responses are consistent and relevant to questioning (and less perfunctory). Insight and judgement are slowly improving It is worth noting that patient's understanding about the seriousness of his psychiatric diagnosis and need for treatment continues to be superficial. He is still resistant about taking medications after he is discharged though readily admits improvement in his ability to communicate since admission. He cannot provide a logical reason for this initially and seems catch himself and eventually provides a somewhat sensible reason in that it is too difficult for him to keep track of this medications and appointments. Diagnostic Results: r/o schizophrenia r/o schizoaffective cannabis abuse Medication Change: No Medical Record Reviewed: Yes Mental Status Examination - Cognitive Function Orientation: Person, Place, Situation Attention: WNL Association: WNL - Mood Mood: Neutral - Affect Affect: Flat (improving reactivity and spontaneity) - Formal Thought Process Formal Thought Process: No Impairment, Other (less disorganized, more focused and predictable) - Suicidal Ideation Suicidal Ideation: No - Homicidal Ideation Homicidal Ideation: No Goal/Treatment Plan - Goal/Treatment Plan Progress Toward Problem(s) and Goals/Treatment Plan: * c/w Milieu/structure/supportive therapy as tolerated * risperdal 0.5mg po tid increased to 1 mg AM and PM and 1 mg HS for disorganization on 04/11/18 * ativan 0.5 mg po bid increased to 1 mg AM and 1 mg PM for catatonia on 04/11/18 * trazodone 50 mg po HS, off label for insomnia * Appreciate f/u by Dr. Humphrey on 04/07/18~there were no active medical issues so provider signed off * No new lab results * I spoke with patient regarding his compliance and injections and he refuses depot medication * Vitals reviewed and noted below: Selected Entries 04/12/18 04/12/18 07:16 16:00 Temperature 97.4 F L Pulse Rate 82 91 H Respiratory 20 Rate Blood Pressure 116/77 125/78
--- NOTE | 2018-04-14 09:43 | PCM.BM ---
Treatment Plan Problems - Problems identified on initial assessmt Altered Thought Process Date Initiated: 04/06/18 Time Initiated: 21:00 Assessment reference: NA Status: Active Defensive Coping Date Initiated: 04/06/18 Time Initiated: 21:00 Assessment reference: NA Status: Active Social Isolation Date Initiated: 04/06/18 Time Initiated: 21:00 Assessment reference: NA Status: Active Medication Nonadherence Date Initiated: 04/06/18 Time Initiated: 21:00 Assessment reference: NA Status: Active Treatment assets and liabiliti Patient Assests: adapts well, cooperative, self-reliant, ADL independent, physically healthy, negotiates basic needs, cognitively intact Patient Liabilities: live alone, financial problems, poor support system, relationship conflicts, substance abuse - Milieu Protocol Maintain good personal hygiene: daily Encourage regular showers, daily Remind patient to perform daily oral care, daily Assist patient to perform ADL's Conduct patient checks and document Observation sheet: Q15 minutes Maintain personal safety: every shift Educate patient to report safety concerns to staff, every shift Monitor environment for contraband/sharps Medication safety: Monitor for expected outcome, potential side effects: every shift, Assess barriers to learning: every shift, Assess readiness for medication education: every shift Milieu Narrative: * PLEASE REFER TO DISCHARGE NOTE FOR AFTERCARE INFORMATION * * THE FOLLOWING MEDICATIONS WERE AUTHORIZED AT 2 WEEKS + 1RF * risperdal 1 mg AM and PM and 1 mg HS for disorganization * ativan 1 mg AM and 1 mg PM for catatonia * trazodone 50 mg po HS, off label for insomnia * * I spoke with patient regarding his compliance and injections and he refuses depot medication Family Contact Family involvement: Famgloria/SO not involved Discharge/Continuing Care - Education Needs Education Needs: Patient Medication, Patient Diagnosis/Disease Process, Patient Coping Skills, Patient Community resources, Patient Activities of Daily Living, Patient Nutrition, Patient Health Practices/Safety, Patient Personal Hygiene/ Grooming, Patient Aftercare Safety Plan - Discharge Discharge Criteria: Tolerates medication w/o severe side effects, Free of paranoid thoughts, Normal sleep pattern, Ability to care for self, Reduction of target symptoms - Treatment Team Participation Patient/Family/SO Statement: * PLEASE REFER TO DISCHARGE NOTE FOR AFTERCARE INFORMATION * * THE FOLLOWING MEDICATIONS WERE AUTHORIZED AT 2 WEEKS + 1RF * risperdal 1 mg AM and PM and 1 mg HS for disorganization * ativan 1 mg AM and 1 mg PM for catatonia * trazodone 50 mg po HS, off label for insomnia * * I spoke with patient regarding his compliance and injections and he refuses depot medication Treatment Plan Review - Problem Altered Thought Process Time Initiated: 21:00 Progress toward outcomes: improved Defensive Coping Time Initiated: 21:00 Progress toward outcomes: improved Social Isolation Time Initiated: 21:00 Progress toward outcomes: improved Medication Nonadherence Time Initiated: 21:00 Progress toward outcomes: improved
--- NOTE | 2018-04-14 10:03 | PCM.PYCHPN ---
Psychiatric Progress Note - Psychiatric Progress Note Patient seen today, length of contact: 25 min Patient Chief Complaint: "fine Problems Identified/Issues Discussed: Patient is a 23 yo single male with history of mood and psychotic symptoms, most likely schizophrenia spectrum disorder, at least one psychiatric admission at [facility] [place] in 2016, +cannabis use was BIB by police [place]. Patient was voluntarily admitted after he presented mute and disorganized in the ER. On the unit he was initially very quiet, minimally verbal and minimally interactive. Even with encouragement he could not participate meaningfully in treatment team meeting last Tuesday04/07/18 and remained isolative throughout the day on Tuesday04/08/18. Patient started showing some improvement by Tuesday04/09/18. He has been more visible, interactive and spontaneous during my interviews and per staff observations throughout the week. Patient has been taking his medications and there have been no major behavioral issues. For the most part, he hasn't been observed to be responding to internal stimuli though was noted to be laughing to himself last Tuesday04/08/18. There have been no further similar episodes on the unit thus far. I meet with patient in the hallway this morning. He still appears flat, shy and quiet but focus, spontaneity and awareness are much improved. He smiles and responds a little more readily and with more elaboration. Patient feels he is doing well. He seems more related and appears to enjoy socializing with others on the unit. Patient generally denies any new concerns including pain, discomfort or side effects. Indicates that he slept well and has a good appetite. Responses are consistent and relevant to questioning (and less perfunctory). Insight and judgement are slowly improving It is worth noting that patient's understanding about the seriousness of his psychiatric diagnosis and need for treatment continues to be superficial. He is still resistant about taking medications after he is discharged though readily admits improvement in his ability to communicate since admission. He cannot provide a logical reason for this initially and seems catch himself and eventually provides a somewhat sensible reason in that it is too difficult for him to keep track of this medications and appointments. Will continue to educate and encourage patient about the importance of medication compliance. Diagnostic Results: r/o schizophrenia r/o schizoaffective cannabis abuse Medication Change: No Medical Record Reviewed: Yes Mental Status Examination - Cognitive Function Orientation: Person, Place, Situation Memory: Intact Attention: WNL Concentration: WNL Association: WNL Fund of Knowledge: Poor Decription of patient's judgement and insights: Much improved but i/j is only still considered fair - Mood Mood: Neutral - Affect Affect: Flat (though with notably improvement in reactivity and spontaneity since admission) - Formal Thought Process Formal Thought Process: No Impairment Psychotic Thoughts and Behaviors: Patient denies any perceptual disturbance including AVH, paranoia. No delusions were elicited - Suicidal Ideation Suicidal Ideation: No - Homicidal Ideation Homicidal Ideation: No Goal/Treatment Plan - Goal/Treatment Plan Progress Toward Problem(s) and Goals/Treatment Plan: * c/w Milieu/structure/supportive therapy as tolerated * risperdal 0.5mg po tid increased to 1 mg AM and PM and 1 mg HS for disorganization on 04/11/18 * ativan 0.5 mg po bid increased to 1 mg AM and 1 mg PM for catatonia on 04/11/18 * trazodone 50 mg po HS, off label for insomnia * Appreciate f/u by Dr. Humphrey on 04/07/18~there were no active medical issues so provider signed off * No new lab results * I spoke with patient regarding his compliance and injections and he refuses depot medication * Vitals reviewed and noted below: Selected Entries 04/14/18 06:56 Temperature 97.9 F Pulse Rate 79 Respiratory 20 Rate Blood Pressure 136/85
--- NOTE | 2018-04-15 09:48 | PCM.PYCHPN ---
Psychiatric Progress Note - Psychiatric Progress Note Patient seen today, length of contact: 25 min Patient Chief Complaint: "fine Problems Identified/Issues Discussed: Patient is a 23 yo single male with history of mood and psychotic symptoms, most likely schizophrenia spectrum disorder, at least one psychiatric admission at [facility] in 2016, +cannabis use was BIB by police [place]. Patient was voluntarily admitted after he presented mute and disorganized in the ER. On the unit he was initially very quiet, minimally verbal and minimally interactive. Even with encouragement he could not participate meaningfully in treatment team meeting last Tuesday04/07/18 and remained isolative throughout the day on Tuesday04/08/18. Patient started showing some improvement by Tuesday04/09/18. He has been more visible, interactive and spontaneous during my interviews and per staff observations throughout the week. Patient has been taking his medications and there have been no major behavioral issues. For the most part, he hasn't been observed to be responding to internal stimuli though was noted to be laughing to himself last Tuesday04/08/18. There have been no further similar episodes on the unit thus far. I meet with patient in the hallway this morning. He still appears flat, shy, mildly odd and quiet but focus, spontaneity and awareness are much improved. He smiles and responds a little more readily and with more elaboration. Patient feels he is doing well. He seems more related and appears to enjoy socializing with others on the unit. Patient generally denies any new concerns including pain, discomfort or side effects. Indicates that he slept well and has a good appetite. Responses are consistent and relevant to questioning (and less perfunctory). He was able to discuss discharge plans with social work on 04/14/18. Insight and judgement are slowly improving It is worth noting that patient's understanding about the seriousness of his psychiatric diagnosis and need for treatment continues to be superficial. He is still resistant about taking medications after he is discharged though readily admits improvement in his ability to communicate since admission. He cannot provide a logical reason for this initially and seems catch himself and eventually provides a somewhat sensible reason in that it is too difficult for him to keep track of this medications and appointments. Will continue to educate and encourage patient about the importance of medication compliance. Diagnostic Results: r/o schizophrenia r/o schizoaffective cannabis abuse Medication Change: No Medical Record Reviewed: Yes Mental Status Examination - Cognitive Function Orientation: Person, Place, Situation Memory: Intact Attention: WNL Concentration: WNL Association: WNL Fund of Knowledge: Poor Decription of patient's judgement and insights: Much improved but i/j is only still considered fair - Mood Mood: Neutral - Affect Affect: Flat (though with notably improvement in reactivity and spontaneity since admission) - Formal Thought Process Formal Thought Process: No Impairment Psychotic Thoughts and Behaviors: Patient denies any perceptual disturbance including AVH, paranoia. No delusions were elicited - Suicidal Ideation Suicidal Ideation: No - Homicidal Ideation Homicidal Ideation: No Goal/Treatment Plan - Goal/Treatment Plan Progress Toward Problem(s) and Goals/Treatment Plan: * c/w Milieu/structure/supportive therapy as tolerated * risperdal 0.5mg po tid increased to 1 mg AM and PM and 1 mg HS for disorganization on 04/11/18 * ativan 0.5 mg po bid increased to 1 mg AM and 1 mg PM for catatonia on 04/11/18 * trazodone 50 mg po HS, off label for insomnia * Appreciate f/u by Dr. Humphrey on 04/07/18~there were no active medical issues so provider signed off * No new lab results * I spoke with patient regarding his compliance and injections and he refuses depot medication * Vitals reviewed and noted below: Selected Entries 04/14/18 04/14/18 06:56 16:26 Temperature 97.9 F Pulse Rate 79 121 H Respiratory 20 Rate Blood Pressure 136/85 99/57 L
--- NOTE | 2018-04-16 09:32 | PCM.PYCHPN ---
Psychiatric Progress Note - Psychiatric Progress Note Patient seen today, length of contact: 25 min Patient Chief Complaint: "fine Problems Identified/Issues Discussed: Patient is a 23 yo single male with history of mood and psychotic symptoms, most likely schizophrenia spectrum disorder, at least one psychiatric admission at [facility] in 2016, +cannabis use was BIB by police [place]. Patient was voluntarily admitted after he presented mute and disorganized in the ER. On the unit he was initially very quiet, minimally verbal and minimally interactive. Even with encouragement he could not participate meaningfully in treatment team meeting last Tuesday04/07/18 and remained isolative throughout the day on Tuesday04/08/18. Patient started showing some improvement by Tuesday04/09/18. He has been more visible, interactive and spontaneous during my interviews and per staff observations throughout the week. Patient has been taking his medications and there have been no major behavioral issues. For the most part, he hasn't been observed to be responding to internal stimuli though was noted to be laughing to himself last Tuesday04/08/18. There have been no further similar episodes on the unit thus far. I meet with patient in the hallway this morning. He still appears flat, shy, mildly odd and quiet but focus, spontaneity and awareness are much improved. He smiles and responds a little more readily and with more elaboration. Patient feels he is doing well. He seems more related and appears to enjoy socializing with others on the unit. Patient generally denies any new concerns including pain, discomfort or side effects. Indicates that he slept well and has a good appetite. Responses are consistent and relevant to questioning (and less perfunctory). He was able to discuss discharge plans with social work on 04/14/18. Insight and judgement are slowly improving It is worth noting that patient's understanding about the seriousness of his psychiatric diagnosis and need for treatment continues to be superficial. He is still a little resistant about taking medications after he is discharged though readily admits improvement in his ability to communicate and function since admission. He cannot provide a logical reason for this initially and seems catch himself and eventually provides a somewhat sensible reason in that it is too difficult for him to keep track of this medications and appointments. Will continue to educate and encourage patient about the importance of medication compliance. Diagnostic Results: r/o schizophrenia r/o schizoaffective cannabis abuse Medication Change: No Medical Record Reviewed: Yes Mental Status Examination - Cognitive Function Orientation: Person, Place, Situation Memory: Intact Attention: WNL Concentration: WNL Association: WNL Fund of Knowledge: Poor Decription of patient's judgement and insights: Much improved but i/j is only still considered fair - Mood Mood: Neutral - Affect Affect: Flat (though with notably improvement in reactivity and spontaneity since admission) - Formal Thought Process Formal Thought Process: No Impairment Psychotic Thoughts and Behaviors: Patient denies any perceptual disturbance including AVH, paranoia. No delusions were elicited - Suicidal Ideation Suicidal Ideation: No - Homicidal Ideation Homicidal Ideation: No Goal/Treatment Plan - Goal/Treatment Plan Progress Toward Problem(s) and Goals/Treatment Plan: * c/w Milieu/structure/supportive therapy as tolerated * risperdal 0.5mg po tid increased to 1 mg AM and PM and 1 mg HS for disorganization on 04/11/18 * ativan 0.5 mg po bid increased to 1 mg AM and 1 mg PM for catatonia on 04/11/18 * trazodone 50 mg po HS, off label for insomnia * Appreciate f/u by Dr. Humphrey on 04/07/18~there were no active medical issues so provider signed off * No new lab results * I spoke with patient regarding his compliance and injections and he refuses depot medication * Vitals reviewed and noted below: Selected Entries 04/15/18 04/15/18 07:01 15:00 Temperature 97.0 F L Pulse Rate 81 93 H Respiratory 20 20 Rate Blood Pressure 115/81 120/76
[2018-04-17 07:01] VITALS: BP 133/79; PULSE 92; TEMP 97.6
--- NOTE | 2018-04-17 15:31 | PCM.PYCHDC ---
Mental Status Examination - Mental Status Examination Orientation: Person, Place, Situation, Time Memory: Impaired (but much improved) Mood: Neutral Affect: Constricted (but reactive and mood congruent) Speech: Appropriate Attention: Poor (much improved) Concentration: Poor (much improved) Association: Loose (much improved) Fund of Knowledge: Poor (baseline) Formal Thought Process: Other (thought process is concrete but seems to be at his baseline) Description of patient's judgement and insight: Pt has improved insight into mental and medical illness, pt was compliant with medications and unit rules and regulations, pt was going to groups, was calm, cooperative, socially appropriate, no behavioral incidents, no agitation, no aggression. Psychotic Thoughts and Behaviors: Pt denied v/a/t hallucinations, denied paranoid ideations, pt does not appear to be psychotic, and thought process is goal directed. Suicidal Ideation: No Current Homicidal Ideation?: No Plan: pt adamantly denied thoughts of harming self or others denied intent or plan. Discharge Summary - Discharge Note Reason for Hospitalization: pt was admitted to the psych inpatient unit for evaluation of disorganized/ catatonic behavior, pt was screened by [facility] in ED, did not meet criteria for screening, pt was willing to be admitted, signed consent for treatment, as per report pt had capacity to do so. Psychiatric History (includes Medical, Family, Personal Hx): see HPI Laboratory Data: 04/06/18 04:29 04/07/18 07:15 Lab Results 04/07/18 07:15: RPR Nonreactive 04/07/18 07:15: TSH 3rd Generation 0.97 04/07/18 07:15: Sodium 143, Potassium 4.0, Chloride 104, Carbon Dioxide 28, Anion Gap 14, BUN 12, Creatinine 1.2, Est GFR ( Amer) > 60, Est GFR (Non- Af Amer) > 60, Random Glucose 104, Fasting Glucose 104, Calcium 9.5, Total Bilirubin 0.6, AST 24, ALT 13, Alkaline Phosphatase 67, Total Protein 7.9, Albumin 4.4, Globulin 3.5, Albumin/Globulin Ratio 1.2, Triglycerides 96, Cholesterol 197, LDL Cholesterol Direct 124, HDL Cholesterol 23 L 04/06/18 05:30: Urine Color Yellow, Urine Appearance Sl cloudy, Urine pH 6.0, Ur Specific [place] 1.015, Urine Protein Negative, Urine Glucose (UA) Negative, Urine Ketones Negative, Urine Blood Moderate H, Urine Nitrate Negative, Urine Bilirubin Negative, Urine Urobilinogen 1.0 H, Ur Leukocyte Esterase Large H, Urine RBC 15 - 20, Urine WBC 25 - 30, Ur Epithelial Cells None, Urine Bacteria Many 04/06/18 05:30: Urine Opiates Screen Negative, Urine Methadone Screen Negative, Ur Barbiturates Screen Negative, Ur Phencyclidine Scrn Negative, Ur Amphetamines Screen Negative, U Benzodiazepines Scrn Negative, U Oth Cocaine Metabols Negative, U Cannabinoids Screen Positive H 04/06/18 04:29: Alcohol, Quantitative < 10 04/06/18 04:29: WBC 7.8 D, RBC 4.59, Hgb 13.7 L, Hct 38.5 L, MCV 83.9, MCH 29.8 , MCHC 35.6, RDW 12.1, Plt Count 372, MPV 10.4 04/06/18 04:29: Sodium 142, Potassium 3.4 L, Chloride 102, Carbon Dioxide 28, Anion Gap 15, BUN 15, Creatinine 0.9, Est GFR ( Amer) > 60, Est GFR (Non- Af Amer) > 60, Random Glucose 103, Calcium 9.1, Total Bilirubin 0.5, AST 13 L D , ALT 18, Alkaline Phosphatase 61, Total Protein 8.0, Albumin 4.4, Globulin 3.5 , Albumin/Globulin Ratio 1.3 Vital Signs Temp Pulse Resp BP Pulse Ox 04/17/18 07:01 97.6 F 92 H 20 133/79 04/16/18 07:27 97.7 F 90 20 131/84 04/15/18 15:00 93 H 20 120/76 04/15/18 07:01 97.0 F L 81 20 115/81 04/14/18 16:26 121 H 99/57 L 04/14/18 06:56 97.9 F 79 20 136/85 04/13/18 16:00 78 122/81 04/13/18 07:17 97.3 F L 81 20 111/75 04/12/18 16:00 91 H 125/78 04/12/18 07:16 97.4 F L 82 20 116/77 04/11/18 16:00 85 113/84 04/11/18 07:03 97.6 F 79 20 115/75 04/10/18 16:00 116 H 95/64 L 04/10/18 07:00 97.5 F L 107 H 20 94/61 L 04/09/18 15:00 83 18 122/75 04/09/18 07:22 97.5 F L 91 H 18 99/68 L 04/08/18 16:30 96 H 128/84 04/08/18 06:36 97.3 F L 74 22 119/62 04/07/18 16:00 94 H 108/67 04/07/18 07:04 98.1 F 64 20 118/78 04/06/18 20:51 97.6 F 66 16 121/84 100 04/06/18 20:28 77 18 120/70 100 04/06/18 16:58 98.0 F 80 17 123/77 99 04/06/18 09:22 65 16 106/58 L 98 04/06/18 06:05 81 18 138/78 98 04/06/18 04:11 97.3 F L 88 18 143/85 100 Consultations:: List each consultation separately and include: 1. Reason for request. 2. Findings. 3. Follow-up Consultations: patient was seen by medical team, please see notes for more detailed information. Summary of Hospital Course include:: 1. Description of specific treatment plan utilized for patients during their course of treatmen. 2. Summarize the time- course for resolution of acute symptoms and/or regressed behaviors. 3. Describe issues identified and worked on during hospitalization. 4. Describe medication utilized. 5. Describe medical problems identified and treated. 6. Reassessment of suicide risk Summary of Hospital Course: 23 yo single male with history of mood and psychotic symptoms, most likely schizophrenia spectrum disorder, cannabis use was BIB by police [place], pt has h/o of being found wandering in traffic, chasing cars down, pt has h/o one psych admission in 2016, this content writer is very familiar with this pt from the previous admission. pt requires further evaluation, stabilization, meds initiation and titration. initially pt was seen at the treatment team meeting, pt is completely mute, not talking, pt communicated with nodding his head. acceptable personal hygiene, fair ADLs. pt nodded positive on the following questions: not taking meds not feeling good homelessness pt denied feeling hopeless/helpless denied psychotic symptoms, but obviously disorganized and giggling inappropriately. as per previous record tp had h/o walking into the traffic, was jumping up and down in ED, h/o trying to elope. pt denied using drugs, but cannabis positive in urine. pt shrugged his shoulders when this content writer confronted. pt denied smoking, denied drinking alcohol. as per h/o, pt was treated with depakote and risperdal. PSYCHIATRIC HISTORY Patient reports one prior recent admission at [facility] x 7 days and that he was just discharged, one admission to [facility] 2016, Denies history of suicide attempts or outpatient treatment. SOCIAL HISTORY (as per previous admission) Born in [place], [place]. Raised partly in [place] and partly in [place]. He is single and has no children. Patient resides with his mother. Graduated high school. Works at [employer] located in [place] on [address] [place] [address]. Denies any arrests. Minimizes marijuana use, indicates last use was 2 days ago. Denies other drug or alcohol use. Denies tobacco use. 04/06/18 04:29 04/07/18 07:15 Lab Results 04/07/18 07:15: TSH 3rd Generation 0.97 04/07/18 07:15: Sodium 143, Potassium 4.0, Chloride 104, Carbon Dioxide 28, Anion Gap 14, BUN 12, Creatinine 1.2, Est GFR ( Amer) > 60, Est GFR (Non- Af Amer) > 60, Random Glucose 104, Fasting Glucose 104, Calcium 9.5, Total Bilirubin 0.6, AST 24, ALT 13, Alkaline Phosphatase 67, Total Protein 7.9, Albumin 4.4, Globulin 3.5, Albumin/Globulin Ratio 1.2, Triglycerides 96, Cholesterol 197, LDL Cholesterol Direct 124, HDL Cholesterol 23 L 04/06/18 05:30: Urine Color Yellow, Urine Appearance Sl cloudy, Urine pH 6.0, Ur Specific [place] 1.015, Urine Protein Negative, Urine Glucose (UA) Negative, Urine Ketones Negative, Urine Blood Moderate H, Urine Nitrate Negative, Urine Bilirubin Negative, Urine Urobilinogen 1.0 H, Ur Leukocyte Esterase Large H, Urine RBC 15 - 20, Urine WBC 25 - 30, Ur Epithelial Cells None, Urine Bacteria Many 04/06/18 05:30: Urine Opiates Screen Negative, Urine Methadone Screen Negative, Ur Barbiturates Screen Negative, Ur Phencyclidine Scrn Negative, Ur Amphetamines Screen Negative, U Benzodiazepines Scrn Negative, U Oth Cocaine Metabols Negative, U Cannabinoids Screen Positive H 04/06/18 04:29: Alcohol, Quantitative < 10 04/06/18 04:29: WBC 7.8 D, RBC 4.59, Hgb 13.7 L, Hct 38.5 L, MCV 83.9, MCH 29.8 , MCHC 35.6, RDW 12.1, Plt Count 372, MPV 10.4 04/06/18 04:29: Sodium 142, Potassium 3.4 L, Chloride 102, Carbon Dioxide 28, Anion Gap 15, BUN 15, Creatinine 0.9, Est GFR ( Amer) > 60, Est GFR (Non- Af Amer) > 60, Random Glucose 103, Calcium 9.1, Total Bilirubin 0.5, AST 13 L D , ALT 18, Alkaline Phosphatase 61, Total Protein 8.0, Albumin 4.4, Globulin 3.5 , Albumin/Globulin Ratio 1.3 Vital Signs Temp Pulse Resp BP Pulse Ox 04/07/18 07:04 98.1 F 64 20 118/78 04/06/18 20:51 97.6 F 66 16 121/84 100 04/06/18 20:28 77 18 120/70 100 04/06/18 16:58 98.0 F 80 17 123/77 99 04/06/18 09:22 65 16 106/58 L 98 04/06/18 06:05 81 18 138/78 98 04/06/18 04:11 97.3 F L 88 18 143/85 100 medical h/o: pt UA was positive for infection gram -rods, pt was given bactrim in ED, medical consult called. pt c/o painful urination. over this hospitalization patient was stabilized on the following medications: Risperdal 1 mg at the morning time to milligrams at the nighttime for psychosis Trazodone 50 mg at the nighttime for insomnia as well as depression Ativan 1 mg twice a day for catatonia Patient tolerated medications well no side effects observed or reported, aims 0 , no EPS. Patient was seen today at the treatment team meeting, patient presented well, was able to talk, no signs of catatonia, patient denied being depressed, denied thoughts of harming himself or others, psychosis is much better. the only concern is no family contact, attempted to call pt's mother, but no success, pt knows the address where he lives. Over the course of this hospitalization pt was attending groups, pt also had medication management, had therapeutic milieu. Overall pt improved significantly, pt's affect became brighter, pt was less depressed, has realistic future oriented plans "I want to find a job", pt also does not appear to be psychotic, or anxious, pt was socially appropriate, no behavioral issues, pts insight improved as well and soon pt deemed to be ready for discharge. At the time of the discharge pt denied been depressed, denied thoughts of harming self or others, denied psychotic symptoms, and pt does not appeared to be psychotic, denied been anxious, pt is not in imminent danger to self or others, will be following up at [facility], information about follow up appointment, time and address provided to the pt, it is patient responsibility to follow up with outpatient clinic, PMD as well as specialists ( see SW note for more detailed information). In case pt will need to obtain results of studies pending at discharge pt was provided with contact information of Psychiatric Inpatient unit [phone] as well as Medical Record Department [phone]. pt was provided with prescriptions for all of medications (please see medication reconciliation form) Pt was educated about safety plan in case of worsening of symptoms or in case of suicidal or homicidal ideation call 911 or go to the nearest ER, also was educated to take meds as prescribed and stay away from drugs, pt verbalized understanding. - Diagnosis (1) Cannabis abuse Current Visit: Yes Status: Chronic Priority: Medium (2) Schizophrenia Current Visit: Yes Status: Chronic Priority: High - Final Diagnosis (DSM 5) Condition upon Discharge: STABLE Disposition: HOME/ ROUTINE Follow-up Treatment Plan: At the time of the discharge pt denied been depressed, denied thoughts of harming self or others, denied psychotic symptoms, and pt does not appeared to be psychotic, denied been anxious, pt is not in imminent danger to self or others, will be following up at [facility], information about follow up appointment, time and address provided to the pt, it is patient responsibility to follow up with outpatient clinic, PMD as well as specialists ( see SW note for more detailed information). In case pt will need to obtain results of studies pending at discharge pt was provided with contact information of Psychiatric Inpatient unit [phone] as well as Medical Record Department [phone]. pt was provided with prescriptions for all of medications (please see medication reconciliation form) Pt was educated about safety plan in case of worsening of symptoms or in case of suicidal or homicidal ideation call 911 or go to the nearest ER, also was educated to take meds as prescribed and stay away from drugs, pt verbalized understanding. Prescriptions/Medication Reconciliation: RX: LORazepam [Ativan] 1 mg PO BID #30 tab RX: risperiDONE [RisperDAL Tab] 1 mg PO DAILY #14 tab Risperidone [Risperdal] 2 mg PO HS #14 tablet RX: traZODone [Desyrel] 50 mg PO HS #14 tab - Smoking Cessation Smoking Cessation Medication prescribed: No Reason for not providing: denied smoking - Antipsychotic Medications Pt discharged on 2 or more routine antipsychotic medications: No
== END 2018-04-17 16:18 | disposition home or self-care (01) | DRG 430 ==
LOC: ED 03:56 → ERH 16:02 → PSYC 20:39
PROVIDERS: ADMIT Psychiatry & Neurology Psychiatry; ATTEND Psychiatry & Neurology Psychiatry
DX: F20.2 Catatonic schizophrenia (principal); F11.20 Opioid dependence, uncomplicated; N39.0 Urinary tract infection, site not specified; F12.10 Cannabis abuse, uncomplicated; G47.00 Insomnia, unspecified; Z59.0 Homelessness; F17.210 Nicotine dependence, cigarettes, uncomplicated; B96.20 Unspecified Escherichia coli [E. coli] as the cause of diseases classified elsewhere

== ENCOUNTER 2018-04-17 18:07 | Emergency (ER) | payer MEDICAID ==
[2018-04-17 18:09] VITALS: BMI 24.3
[2018-04-17 19:22] VITALS: TEMP 98.3
[2018-04-17 20:31] LABS: ACETAMINOPHEN < 10.0 ug/ml (10.0-20.0); SALICYLATE < 1 mg/dL (2.0-20.0)
[2018-04-17 20:35] LABS: ALB/GLOB RATIO 1.4 (1.1-1.8); ALBUMIN 4.6 g/dL (3.0-4.8); ALT/SGPT 21 U/L (7-56); AST/SGOT 22 U/L (17-59); BLOOD UREA NITROGEN 17 mg/dL (7-21); CALCIUM 9.7 mg/dL (8.4-10.5); GFR NON-AFRICAN AMERICAN > 60
[2018-04-17 20:38] LABS: BASO # 0.07 K/mm3 (0.0-2.0); BASO % 0.6 % (0.0-3.0); EOS # 0.1 (0.0-0.7); EOS % 0.5 % (1.5-5.0); GRAN # 7.68 (1.4-6.5); GRAN % 69.4 % (50.0-68.0); HEMOGLOBIN 14.3 g/dL (14.0-18.0); LYMPH # 2.8 (1.2-3.4); LYMPH % 25.5 % (22.0-35.0); MEAN CELL VOLUME 86.7 fl (80.0-105.0); MEAN CORPUSCULAR HEMOGLOBIN 29.7 pg (25.0-35.0); MEAN CORPUSCULAR HGB CONC 34.2 g/dl (31.0-37.0); MEAN PLATELET VOLUME 10.6 fl (7.0-11.0); MONO # 0.4 (0.1-0.6); RBC 4.82 10^6/uL (3.5-6.1); RED CELL DISTRIBUTION WIDTH 12.7 % (11.5-14.5); URINE BILIRUBIN NEGATIVE (NEGATIVE); URINE BLOOD NEGATIVE (NEGATIVE); URINE GLUCOSE (UA) NEGATIVE (NEGATIVE); URINE LEUKOCYTE ESTERASE NEGATIVE Leu/uL (NEGATIVE); URINE PROTEIN NEGATIVE mg/dL (<30 mg/dL); URINE UROBILINOGEN 0.2 E.U./dL (<1 E.U./dL); WHITE BLOOD COUNT 11.1 10^3/ul (4.5-11.0)
[2018-04-17 20:39] LABS: URINE APPEARANCE CLEAR (CLEAR); URINE COLOR LIGHT YELLOW (YELLOW)
[2018-04-17 20:56] LABS: BARBITURATES, UR NEGATIVE (NEGATIVE); BENZODIAZEPINES, UR NEGATIVE (NEGATIVE); OPIATES, UR NEGATIVE (NEGATIVE); PHENCYCLIDINE, UR NEGATIVE (NEGATIVE)
--- NOTE | 2018-04-17 22:58 | ED PDOC ---
Arrival/HPI - General Chief Complaint: Psychiatric Evaluation Time Seen by Provider: 04/17/18 18:14 Historian: Patient - History of Present Illness Narrative History of Present Illness (Text): 04/17/18 22:52 23yr old male presents today for depression. pt claims to be depressed. denies SI or HI. no cp or sob. no abdominal pain. pt denies dizziness or weakness. per chart, pt was discharged from hospital today. pt denies drug use. no vomiting/ diarrhea. Past Medical History - Provider Review Nursing Documentation Reviewed: Yes - Travel History Have you recently traveled outside [place] w/in the past 3 mons?: No - Infectious Disease Hx of Infectious Diseases: None - Tetanus Immunization Tetanus Immunization: Unknown - Cardiac Hx Cardiac Disorders: No - Pulmonary Hx Respiratory Disorders: No - Neurological Hx Neurological Disorder: No - HEENT Hx HEENT Disorder: No - Renal Hx Renal Disorder: No - Endocrine/Metabolic Hx Endocrine Disorders: No - Hematological/Oncological Hx Blood Disorders: No - Integumentary Hx Dermatological Disorder: No - Musculoskeletal/Rheumatological Hx Musculoskeletal Disorders: No - Gastrointestinal Hx Gastrointestinal Disorders: No - Genitourinary/Gynecological Hx Genitourinary Disorders: No - Psychiatric Hx Psychophysiologic Disorder: Yes Hx Schizophrenia: Yes Hx Substance Use: Yes - Anesthesia Hx Anesthesia: No Family/Social History - Physician Review Nursing Documentation Reviewed: Yes Family/Social History: Unknown Family HX Smoking Status: Heavy Smoker > 10 Cigarettes Daily Hx Alcohol Use: No Hx Substance Use: Yes Substance used: marijuana Allergies/Home Meds Allergies/Adverse Reactions: Allergies No Known Allergies Allergy (Verified 04/17/18 19:17) Review of Systems - Review of Systems Constitutional: absent: Fatigue, Fevers Respiratory: absent: SOB, Cough Cardiovascular: absent: Chest Pain, Palpitations Gastrointestinal: absent: Abdominal Pain, Constipation, Diarrhea, Nausea, Vomiting Genitourinary Male: absent: Dysuria, Frequency, Hematuria Musculoskeletal: absent: Arthralgias, Back Pain, Neck Pain Skin: absent: Rash, Pruritis Neurological: absent: Headache, Dizziness Psychiatric: Depression. absent: Anxiety, Suicidal Ideation Physical Exam Vital Signs Reviewed: Yes Vital Signs Temp Pulse Resp BP Pulse Ox 04/18/18 00:16 87 04/17/18 19:18 98.3 F 105 H 16 127/80 98 Temperature: Afebrile Blood Pressure: Normal Pulse: Tachycardic Respiratory Rate: Normal Appearance: Positive for: Well-Appearing, Non-Toxic, Comfortable Pain Distress: None Mental Status: Positive for: Alert and Oriented X 3 - Systems Exam Head: Present: Atraumatic Mouth: Present: Moist Mucous Membranes Neck: Present: Normal Range of Motion Respiratory/Chest: Present: Clear to Auscultation, Good Air Exchange. No: Respiratory Distress, Accessory Muscle Use Cardiovascular: Present: Regular Rate and Rhythm, Normal S1, S2. No: Murmurs Abdomen: No: Tenderness, Rebound, Guarding Neurological: Present: GCS=15, Speech Normal Skin: Present: Warm, Dry, Normal Color. No: Rashes Psychiatric: Present: Alert, Oriented x 3 Medical Decision Making ED Course and Treatment: 04/17/18 22:54 Patient is nontoxic well-appearing in no distress vital signs are stable. CBC WNL CMP WNL Tylenol WNL Salicylate WNL Alcohol level WNL Urine drug screen wnl UA; wnl pt is medically cleared for PES evaluation Patient was seen and evaluated by PES screener: dunia. pt denies depression to PES project scheduler pt cleared psychiatrically for discharge. pt was advised to f/u with behavioral health center and shelters. Impression; homelessness Followup with behavioral health return if symptoms worsen,persist or if new symptoms - Lab Interpretations Lab Results: 04/17/18 20:00 04/17/18 20:00 Lab Results 04/17/18 20:00: Alcohol, Quantitative < 10 04/17/18 20:00: Salicylates < 1 L, Acetaminophen < 10.0 L 04/17/18 20:00: Urine Opiates Screen Negative, Urine Methadone Screen Negative, Ur Barbiturates Screen Negative, Ur Phencyclidine Scrn Negative, Ur Amphetamines Screen Negative, U Benzodiazepines Scrn Negative, U Oth Cocaine Metabols Negative, U Cannabinoids Screen Negative 04/17/18 20:00: Sodium 142, Potassium 3.9, Chloride 97 L, Carbon Dioxide 33, Anion Gap 16, BUN 17, Creatinine 1.0, Est GFR ( Amer) > 60, Est GFR (Non- Af Amer) > 60, Random Glucose 98, Calcium 9.7, Total Bilirubin 0.4, AST 22, ALT 21, Alkaline Phosphatase 63, Total Protein 7.9, Albumin 4.6, Globulin 3.3, Albumin/Globulin Ratio 1.4 04/17/18 20:00: Urine Color Light yellow, Urine Appearance Clear, Urine pH 7.0, Ur Specific [place] 1.010, Urine Protein Negative, Urine Glucose (UA) Negative, Urine Ketones Negative, Urine Blood Negative, Urine Nitrate Negative, Urine Bilirubin Negative, Urine Urobilinogen 0.2, Ur Leukocyte Esterase Negative 04/17/18 20:00: WBC 11.1 H D, RBC 4.82, Hgb 14.3, Hct 41.8 L, MCV 86.7, MCH 29.7 , MCHC 34.2, RDW 12.7, Plt Count 277, MPV 10.6, Gran % 69.4 H, Lymph % (Auto) 25.5, [place] % (Auto) 4.0, Eos % (Auto) 0.5 L, Baso % (Auto) 0.6, Gran # 7.68 H, Lymph # (Auto) 2.8, [place] # (Auto) 0.4, Eos # (Auto) 0.1, Baso # (Auto) 0.07 Disposition/Present on Arrival - Present on Arrival Any Indicators Present on Arrival: No History of DVT/PE: No History of Uncontrolled Diabetes: No Urinary Catheter: No History of Decub. Ulcer: No History Surgical Site Infection Following: None - Disposition Have Diagnosis and Disposition been Completed?: Yes Diagnosis: Homelessness Disposition: HOME/ ROUTINE Disposition Time: 00:15 Patient Plan: Discharge Condition: GOOD Additional Instructions: Followup with behavioral health Follow up with the primary care physician. return if symptoms worsen,persist or if new symptoms develop Referrals: [facility] [Outside] - Follow up with primary [facility] [Outside] - Follow up with primary Gloria Gilliam MD [Medical Doctor] - Follow up with primary Forms: [employer] (Setswana)
[2018-04-18 06:33] VITALS: BP 124/68; PULSE 72; RESP 18; O2SAT 99
--- NOTE | 2018-04-18 11:32 | CARD ---
APPROVED REPORT Date of service: 04/18/2018 EKG Measurement Heart [id number] <Conclusion> Normal sinus rhythm with sinus arrhythmia Normal ECG
== END 2018-04-18 06:20 | disposition home or self-care (01) ==
LOC: ED 18:07
DX: Z59.0 Homelessness (principal); F17.210 Nicotine dependence, cigarettes, uncomplicated; F20.9 Schizophrenia, unspecified

== ENCOUNTER 2018-04-20 17:25 | Inpatient (IN) | payer MEDICAID ==
[2018-04-20 17:39] VITALS: BMI 23.7
[2018-04-20 19:11] LABS: BASO # 0.05 K/mm3 (0.0-2.0); BASO % 0.6 % (0.0-3.0); EOS # 0.1 (0.0-0.7); EOS % 0.7 % (1.5-5.0); GRAN # 5.18 (1.4-6.5); GRAN % 59.2 % (50.0-68.0); HEMOGLOBIN 14.4 g/dL (14.0-18.0); LYMPH # 2.6 (1.2-3.4); LYMPH % 29.6 % (22.0-35.0); MEAN CELL VOLUME 87.1 fl (80.0-105.0); MEAN CORPUSCULAR HEMOGLOBIN 29.9 pg (25.0-35.0); MEAN CORPUSCULAR HGB CONC 34.3 g/dl (31.0-37.0); MEAN PLATELET VOLUME 10.8 fl (7.0-11.0); MONO # 0.9 (0.1-0.6); MONO % 9.9 % (1.0-6.0); RBC 4.82 10^6/uL (3.5-6.1); RED CELL DISTRIBUTION WIDTH 12.9 % (11.5-14.5); WHITE BLOOD COUNT 8.8 10^3/ul (4.5-11.0)
[2018-04-20 19:26] LABS: ACETAMINOPHEN < 10.0 ug/ml (10.0-20.0); SALICYLATE < 1 mg/dL (2.0-20.0)
[2018-04-20 19:34] LABS: ALB/GLOB RATIO 1.3 (1.1-1.8); ALBUMIN 4.6 g/dL (3.0-4.8); ALT/SGPT 23 U/L (7-56); AST/SGOT 17 U/L (17-59); BLOOD UREA NITROGEN 15 mg/dL (7-21); CALCIUM 9.2 mg/dL (8.4-10.5); GFR NON-AFRICAN AMERICAN > 60
[2018-04-20 19:39] LABS: URINE BILIRUBIN NEGATIVE (NEGATIVE); URINE BLOOD NEGATIVE (NEGATIVE); URINE GLUCOSE (UA) NEGATIVE (NEGATIVE); URINE LEUKOCYTE ESTERASE NEGATIVE Leu/uL (NEGATIVE); URINE PROTEIN NEGATIVE mg/dL (<30 mg/dL)
[2018-04-20 19:40] LABS: URINE APPEARANCE CLEAR (CLEAR); URINE COLOR LIGHT YELLOW (YELLOW)
[2018-04-20 19:59] LABS: BARBITURATES, UR NEGATIVE (NEGATIVE); BENZODIAZEPINES, UR NEGATIVE (NEGATIVE); OPIATES, UR NEGATIVE (NEGATIVE); PHENCYCLIDINE, UR NEGATIVE (NEGATIVE)
--- NOTE | 2018-04-20 21:48 | ED PDOC ---
Arrival/HPI - General Chief Complaint: Psychiatric Evaluation Time Seen by Provider: 04/20/18 17:51 Historian: Patient - History of Present Illness Narrative History of Present Illness (Text): 04/20/18 21:15 23yr old male presents today c/o depression and total body aches. pt states he has worsening pain to the entire body over the past few months. pt states he is depressed an homeless. he denies SI or HI. pt denies cp or sob. no urinary symptoms. no other complaints. he states " i have no where to go" Past Medical History - Provider Review Nursing Documentation Reviewed: Yes - Travel History Have you recently traveled outside [place] w/in the past 3 mons?: No - Infectious Disease Hx of Infectious Diseases: None - Tetanus Immunization Tetanus Immunization: Unknown - Cardiac Hx Cardiac Disorders: No - Pulmonary Hx Respiratory Disorders: No - Neurological Hx Neurological Disorder: No - HEENT Hx HEENT Disorder: No - Renal Hx Renal Disorder: No - Endocrine/Metabolic Hx Endocrine Disorders: No - Hematological/Oncological Hx Blood Disorders: No - Integumentary Hx Dermatological Disorder: No - Musculoskeletal/Rheumatological Hx Musculoskeletal Disorders: No - Gastrointestinal Hx Gastrointestinal Disorders: No - Genitourinary/Gynecological Hx Genitourinary Disorders: No - Psychiatric Hx Psychophysiologic Disorder: Yes Hx Schizophrenia: Yes Hx Substance Use: Yes - Anesthesia Hx Anesthesia: No Family/Social History - Physician Review Nursing Documentation Reviewed: Yes Family/Social History: Unknown Family HX Smoking Status: Heavy Smoker > 10 Cigarettes Daily Hx Alcohol Use: No Hx Substance Use: Yes Substance used: marijuana Allergies/Home Meds Allergies/Adverse Reactions: Allergies No Known Allergies Allergy (Verified 04/21/18 01:34) Home Medications: Home Meds Medication Instructions Recorded Confirmed No Known Home Med 04/20/18 04/21/18 Review of Systems - Review of Systems Constitutional: absent: Fatigue, Fevers Respiratory: absent: SOB, Cough Cardiovascular: absent: Chest Pain, Palpitations Gastrointestinal: absent: Abdominal Pain, Nausea, Vomiting Genitourinary Male: absent: Dysuria, Frequency Musculoskeletal: absent: Arthralgias, Back Pain, Neck Pain Skin: absent: Rash, Pruritis Neurological: absent: Headache, Dizziness Psychiatric: Depression. absent: Anxiety, Suicidal Ideation Physical Exam Vital Signs Reviewed: Yes Vital Signs Temp Pulse Resp BP Pulse Ox 04/20/18 21:27 97.6 F 98 H 20 141/78 96 08/23/18 17:37 98.9 F 103 H 18 133/96 H 99 Temperature: Afebrile Blood Pressure: Hypertensive Pulse: Tachycardic Respiratory Rate: Normal Appearance: Positive for: Well-Appearing, Non-Toxic, Comfortable Pain Distress: None Mental Status: Positive for: Alert and Oriented X 3 - Systems Exam Head: Present: Atraumatic Mouth: Present: Moist Mucous Membranes Neck: Present: Normal Range of Motion, Trachea Midline. No: MIDLINE TENDERNESS , Paraspinal Tenderness, Lymphadenopathy Respiratory/Chest: Present: Clear to Auscultation, Good Air Exchange. No: Respiratory Distress, Accessory Muscle Use Cardiovascular: Present: Regular Rate and Rhythm, Normal S1, S2. No: Murmurs Abdomen: No: Tenderness, Distention, Peritoneal Signs, Rebound, Guarding Back: Present: Normal Inspection. No: Midline Tenderness, Paraspinal Tenderness Upper Extremity: Present: Normal ROM Lower Extremity: Present: Normal ROM Neurological: Present: GCS=15, Speech Normal Skin: Present: Warm, Dry, Normal Color Psychiatric: Present: Alert, Oriented x 3 Medical Decision Making ED Course and Treatment: 04/20/18 21:50 Patient is nontoxic well-appearing in no distress vital signs are stable. CBC WNL CMP WNL CPK within normal limits Tylenol WNL Salicylate WNL Alcohol level WNL Urine drug screen wnl UA; wnl cxr: wnl ekg sinus tachycardia at 106 bpm pt is medically cleared for PES evaluation 04/20/18 23:30 case signed out to dr. Jackson pending PES evaluation, re-evaluation and disposition - Lab Interpretations Lab Results: 04/20/18 19:07 04/20/18 19:07 Lab Results 04/20/18 19:34: Urine Opiates Screen Negative, Urine Methadone Screen Negative, Ur Barbiturates Screen Negative, Ur Phencyclidine Scrn Negative, Ur Amphetamines Screen Negative, U Benzodiazepines Scrn Negative, U Oth Cocaine Metabols Negative, U Cannabinoids Screen Negative 04/20/18 19:34: Urine Color Light yellow, Urine Appearance Clear, Urine pH 7.0, Ur Specific [place] 1.015, Urine Protein Negative, Urine Glucose (UA) Negative, Urine Ketones Trace H, Urine Blood Negative, Urine Nitrate Negative, Urine Bilirubin Negative, Urine Urobilinogen 1.0 H, Ur Leukocyte Esterase Negative 04/20/18 19:07: WBC 8.8 D, RBC 4.82, Hgb 14.4, Hct 42.0, MCV 87.1, MCH 29.9, MCHC 34.3, RDW 12.9, Plt Count 243, MPV 10.8, Gran % 59.2, Lymph % (Auto) 29.6, [place] % (Auto) 9.9 H, Eos % (Auto) 0.7 L, Baso % (Auto) 0.6, Gran # 5.18, Lymph # (Auto) 2.6, [place] # (Auto) 0.9 H, Eos # (Auto) 0.1, Baso # (Auto) 0.05 04/20/18 19:07: Alcohol, Quantitative < 10 04/20/18 19:07: Salicylates < 1 L, Acetaminophen < 10.0 L 04/20/18 19:07: Sodium 141, Potassium 3.8, Chloride 101, Carbon Dioxide 26, Anion Gap 18, BUN 15, Creatinine 1.2, Est GFR ( Amer) > 60, Est GFR (Non- Af Amer) > 60, Random Glucose 106, Calcium 9.2, Total Bilirubin 0.6, AST 17 D, ALT 23, Alkaline Phosphatase 61, Total Creatine Kinase 89, Total Protein 8.1, Albumin 4.6, Globulin 3.5, Albumin/Globulin Ratio 1.3 - Medication Orders Current Medication Orders: Acetaminophen (Tylenol 325mg Tab) 650 mg PO Q4H PRN PRN Reason: Pain, Mild (1-3) Last Admin: 04/21/18 10:15 Dose: 650 mg MAR Pain/Vitals Document 04/21/18 10:15 ABO (Rec: 04/21/18 10:20 ABO [id number]) Pain Reassessment Is This A Pain ReAssessment? No Presence of Pain Presence of Pain Yes Pain Scale Used Pain Scale Used Numeric Location Upper or Lower Lower Pain Location Body Site Back Description Constant Al Hydrox/Mg Hydrox/Simethicone (Maalox Plus 30 Ml) 30 ml PO DAILY PRN PRN Reason: Upset Stomach Lorazepam (Ativan) 1 mg PO BID JULIET PRN Reason: Protocol Lorazepam (Ativan) 2 mg PO Q6H PRN; Protocol PRN Reason: anxiety/agitation Lorazepam (Ativan) 2 mg IM Q6 PRN; Protocol PRN Reason: Agitation Magnesium Hydroxide (Milk Of Magnesia) 30 ml PO DAILY PRN PRN Reason: Constipation Risperidone (Risperdal Tab) 1 mg PO DAILY JULIET PRN Reason: Protocol Risperidone (Risperdal Tab) 2 mg PO HS JULIET PRN Reason: Protocol Trazodone HCl (Desyrel) 50 mg PO HS JULIET Ziprasidone (Geodon Inj) 20 mg IM Q6H PRN; Protocol PRN Reason: severe agitaiton/psychosis Ziprasidone (Geodon Cap) 20 mg PO Q6H PRN; Protocol PRN Reason: psychosis/agitation Discontinued Medications Ibuprofen (Motrin Tab) 600 mg PO STAT STA Stop: 04/20/18 20:50 Last Admin: 04/20/18 21:23 Dose: 600 mg MAR Pain/Vitals Document 04/20/18 21:23 SS (Rec: 04/20/18 21:23 SS [id number]) Location Pain Location Body Record Label Internship Re-Assess: MAR Pain/Vitals Document 04/20/18 22:23 DCP (Rec: 04/21/18 04:30 DCP [id number]) Pain Reassessment Is This A Pain ReAssessment? Yes Sleep Is patient sleeping during reassessment? Yes Risperidone (Risperdal Tab) 0.5 mg PO STAT STA PRN Reason: Protocol Stop: 04/21/18 02:29 Last Admin: 04/21/18 02:48 Dose: 0.5 mg Behavioural Document 04/21/18 02:48 DCP (Rec: 04/21/18 02:48 DCP [id number]) Maintenance Maintenance Dose Yes Re-Assess: Reassess Psych Meds Document 04/21/18 03:48 DCP (Rec: 04/21/18 04:09 DCP [id number]) Reassess Psych Med Effective Trazodone HCl (Desyrel) 50 mg PO STAT STA Stop: 04/21/18 02:29 Last Admin: 04/21/18 02:48 Dose: 50 mg Disposition/Present on Arrival - Present on Arrival Any Indicators Present on Arrival: No History of DVT/PE: No History of Uncontrolled Diabetes: No Urinary Catheter: No History of Decub. Ulcer: No History Surgical Site Infection Following: None - Disposition Have Diagnosis and Disposition been Completed?: Yes Diagnosis: Schizophrenia Disposition: HOSPITALIZED Disposition Time: 00:30 Patient Problems: Current Active Problems Problem Status Onset Schizophrenia Chronic Condition: GOOD
--- NOTE | 2018-04-21 00:38 | ED PDOC ---
Physical Exam Vital Signs Reviewed: Yes Vital Signs Temp Pulse Resp BP Pulse Ox 04/20/18 21:27 97.6 F 98 H 20 141/78 96 04/20/18 17:37 98.9 F 103 H 18 133/96 H 99 Temperature: Afebrile Blood Pressure: Hypertensive Pulse: Tachycardic Respiratory Rate: Normal Appearance: Positive for: Well-Appearing, Non-Toxic, Comfortable Pain Distress: None Mental Status: Positive for: Alert and Oriented X 3 Medical Decision Making ED Course and Treatment: 04/21/18 23:32: Case endorsed to me by ROMAIN Maloney. Patient with a history of schizophrenia, recently admitted. Patient is homeless. Pending PES evaluation, reassessment, and disposition. 04/21/18 00:37: PES evaluated patient. Patient signed himself in and will be admitted to Dr. Boateng's service for a diagnosis of schizophrenia. - Lab Interpretations Lab Results: 04/20/18 19:07 04/20/18 19:07 Lab Results 04/20/18 19:34: Urine Opiates Screen Negative, Urine Methadone Screen Negative, Ur Barbiturates Screen Negative, Ur Phencyclidine Scrn Negative, Ur Amphetamines Screen Negative, U Benzodiazepines Scrn Negative, U Oth Cocaine Metabols Negative, U Cannabinoids Screen Negative 04/20/18 19:34: Urine Color Light yellow, Urine Appearance Clear, Urine pH 7.0, Ur Specific [place] 1.015, Urine Protein Negative, Urine Glucose (UA) Negative, Urine Ketones Trace H, Urine Blood Negative, Urine Nitrate Negative, Urine Bilirubin Negative, Urine Urobilinogen 1.0 H, Ur Leukocyte Esterase Negative 04/20/18 19:07: WBC 8.8 D, RBC 4.82, Hgb 14.4, Hct 42.0, MCV 87.1, MCH 29.9, MCHC 34.3, RDW 12.9, Plt Count 243, MPV 10.8, Gran % 59.2, Lymph % (Auto) 29.6, [place] % (Auto) 9.9 H, Eos % (Auto) 0.7 L, Baso % (Auto) 0.6, Gran # 5.18, Lymph # (Auto) 2.6, [place] # (Auto) 0.9 H, Eos # (Auto) 0.1, Baso # (Auto) 0.05 04/20/18 19:07: Alcohol, Quantitative < 10 04/20/18 19:07: Salicylates < 1 L, Acetaminophen < 10.0 L 04/20/18 19:07: Sodium 141, Potassium 3.8, Chloride 101, Carbon Dioxide 26, Anion Gap 18, BUN 15, Creatinine 1.2, Est GFR ( Amer) > 60, Est GFR (Non- Af Amer) > 60, Random Glucose 106, Calcium 9.2, Total Bilirubin 0.6, AST 17 D, ALT 23, Alkaline Phosphatase 61, Total Creatine Kinase 89, Total Protein 8.1, Albumin 4.6, Globulin 3.5, Albumin/Globulin Ratio 1.3 - Medication Orders Current Medication Orders: Discontinued Medications Ibuprofen (Motrin Tab) 600 mg PO STAT STA Stop: 04/20/18 20:50 Last Admin: 04/20/18 21:23 Dose: 600 mg MAR Pain/Vitals Document 04/20/18 21:23 SS (Rec: 04/20/18 21:23 SS [id number]) Location Pain Location Body Superannuation Clerk Disposition/Present on Arrival - Present on Arrival Any Indicators Present on Arrival: No History of DVT/PE: No History of Uncontrolled Diabetes: No Urinary Catheter: No History of Decub. Ulcer: No History Surgical Site Infection Following: None - Disposition Have Diagnosis and Disposition been Completed?: Yes Diagnosis: Schizophrenia Disposition: HOSPITALIZED Disposition Time: 01:08 Condition: GOOD
[2018-04-21 01:22] VITALS: O2SAT 98
[2018-04-21] MEDS ORDERED: Alum-Mag Hydrox-Simethicone Susp (30 mL) PO PRN (01:32)
[2018-04-21] MEDS ORDERED: Magnesium Hydroxide Susp 30 ml UD PO PRN (01:32)
--- NOTE | 2018-04-21 02:57 | PCM.BM ---
<Ezio Andrade C - Last Filed: 04/21/18 03:01> Treatment Plan Problems - Problems identified on initial assessmt ALTERED THOUGHT PROCESS Date Initiated: 04/21/18 Time Initiated: 02:00 Assessment reference: NA Status: Active Priority: 2 MEDICATION NON ADHERENCE Date Initiated: 04/21/18 Time Initiated: 02:00 Assessment reference: NA Status: Active Priority: 3 INEFFECTIVE COPING Date Initiated: 04/21/18 Time Initiated: 02:00 Assessment reference: NA Status: Active Priority: 1 Treatment assets and liabiliti Patient Assests: adapts well, cooperative, self-reliant, ADL independent, physically healthy, negotiates basic needs, cognitively intact Patient Liabilities: live alone, financial problems, poor support system, relationship conflicts, substance abuse - Milieu Protocol Maintain good personal hygiene: daily Encourage regular showers, every shift Remind patient to perform daily oral care, every shift Assist patient to perform ADL's Maintain personal safety: every shift Educate patient to report safety concerns to staff, every shift Monitor environment for contraband/sharps Medication safety: Monitor for expected outcome, potential side effects: every shift, Assess barriers to learning: every shift, Assess readiness for medication education: every shift Family Contact Family involvement: No known Family/SO Family contact: Telephone contact initiated by staff Discharge/Continuing Care - Education Needs Education Needs: Patient Medication, Patient Diagnosis/Disease Process, Patient Coping Skills, Patient Placement options, Patient Uses of Medical Equipment, Patient Health Practices/Safety, Patient Personal Hygiene/Grooming, Patient Aftercare Safety Plan - Discharge Discharge Criteria: Tolerates medication w/o severe side effects, Free of Suicidal thoughts, Free of paranoid thoughts, Normal sleep pattern, Ability to care for self <Anastasiya Boateng A - Last Filed: 04/21/18 12:23> Treatment Plan Problems - Problems identified on initial assessmt ALTERED THOUGHT PROCESS Date Initiated: 04/21/18 Time Initiated: 02:00 Assessment reference: NA Status: Active Priority: 2 MEDICATION NON ADHERENCE Date Initiated: 04/21/18 Time Initiated: 02:00 Assessment reference: NA Status: Active Priority: 3 INEFFECTIVE COPING Date Initiated: 04/21/18 Time Initiated: 02:00 Assessment reference: NA Status: Active Priority: 1 DEPRESSION Date Initiated: 04/21/18 Time Initiated: 02:00 Assessment reference: NA Status: Active Priority: 1 - Diagnosis (1) Schizophrenia Status: Chronic Interventions: 04/21/18 12:22 Psychoeducation/psychotherapy Psychopharmacology/adjustment of medications as needed/ monitoring possible side effects Evaluate pt on daily basis Compliance with medications and follow up appointments Long acting medication if pt is noncompliant with pill form Suicide and homicide risk assessment and prevention, coping strategies, safety plan Relapse prevention Reduction of symptoms Improve functional status Possible assertive community treatment Family involvement Possible social skill training as outpatient addressing homelessness 04/21/18 12:23 <Dayanara Logan - Last Filed: 04/21/18 15:47>
--- NOTE | 2018-04-21 08:02 | RAD ---
Date of service: 04/21/2018 HISTORY: med clear COMPARISON: 04/06/2018. FINDINGS: LUNGS: The lungs are well inflated and clear. PLEURA: No significant pleural effusion identified, no pneumothorax apparent. CARDIOVASCULAR: Normal. OSSEOUS STRUCTURES: No significant abnormalities. VISUALIZED UPPER ABDOMEN: Normal. OTHER FINDINGS: None. IMPRESSION: No active pulmonary disease.
--- NOTE | 2018-04-21 12:19 | PCM.PSYCH ---
Initial Psychiatric Evaluation - Initial Psychiatric Evaluation Type of Admission: Voluntary Legal Status: Capacity (patient has capacity to sign consent for treatment) Chief Complaint (in patient's own words): "same thing, pain all over my body, I hear voices but not now" Patient's Reaction to Hospitalization: pt was admitted to psychiatric inpatient unit for evaluation of disorganized behavior, bizarre presentation. History of Present Illness and Precipitating Events: Shortly pt is a 23 yo single male with history of mood and psychotic symptoms, most likely schizophrenia spectrum disorder, multiple psychiatric admissions in the past, pt was d/c from [facility] at the beginning of this week 04/17/18, on the next day pt came to ED 04/18/18, was discharged, pt has h/o of cannabis use, homelessness, pt has h/o of being found wandering in traffic, chasing cars down , this chief underwriter is very familiar with this pt from the previous admission. psychiatrist production machine operator recommended admission for that pt, pt requires further evaluation, stabilization, meds resumption and titration. pt was seen at the treatment team meeting, pt had difficulties to express himself, pt was able to give one word answer, said that he did not take his medications "because I was afraid", pt said "everything is hurting, as usual". pt still has no information about his family, nobody is available. pt has neurocognitive deficit, concrete thought process. acceptable personal hygiene, fair ADLs. pt denied feeling hopeless/helpless denied psychotic symptoms, but obviously disorganized and giggling inappropriately "I do not hear voices now but I was hearing voices before". as per previous record tp had h/o walking into the traffic, was jumping up and down in ED, h/o trying to elope. pt denied using drugs, denied smoking denied drinking alcohol. pat has h/o cannabis positive in urine last admission. as per h/o, pt was treated with depakote and risperdal. PSYCHIATRIC HISTORY/ Patient reports one prior recent admission at [facility] x 7 days and that he was just discharged, two admissions to [facility] 04/06/18, and 2016, Denies history of suicide attempts or outpatient treatment. SOCIAL HISTORY (as per previous admission) Born in [place], [place]. Raised partly in [place] and partly in [place]. He is single and has no children. Patient resides with his mother. Graduated high school. h/o Works at [email or web address] located in [place] on [address] [place] [address]. Denies any arrests. 04/20/18 19:07 04/20/18 19:07 Lab Results 04/20/18 19:34: Urine Opiates Screen Negative, Urine Methadone Screen Negative, Ur Barbiturates Screen Negative, Ur Phencyclidine Scrn Negative, Ur Amphetamines Screen Negative, U Benzodiazepines Scrn Negative, U Oth Cocaine Metabols Negative, U Cannabinoids Screen Negative 04/20/18 19:34: Urine Color Light yellow, Urine Appearance Clear, Urine pH 7.0, Ur Specific [place] 1.015, Urine Protein Negative, Urine Glucose (UA) Negative, Urine Ketones Trace H, Urine Blood Negative, Urine Nitrate Negative, Urine Bilirubin Negative, Urine Urobilinogen 1.0 H, Ur Leukocyte Esterase Negative 04/20/18 19:07: WBC 8.8 D, RBC 4.82, Hgb 14.4, Hct 42.0, MCV 87.1, MCH 29.9, MCHC 34.3, RDW 12.9, Plt Count 243, MPV 10.8, Gran % 59.2, Lymph % (Auto) 29.6, [place] % (Auto) 9.9 H, Eos % (Auto) 0.7 L, Baso % (Auto) 0.6, Gran # 5.18, Lymph # (Auto) 2.6, [place] # (Auto) 0.9 H, Eos # (Auto) 0.1, Baso # (Auto) 0.05 04/20/18 19:07: Alcohol, Quantitative < 10 04/20/18 19:07: Salicylates < 1 L, Acetaminophen < 10.0 L 04/20/18 19:07: Sodium 141, Potassium 3.8, Chloride 101, Carbon Dioxide 26, Anion Gap 18, BUN 15, Creatinine 1.2, Est GFR ( Amer) > 60, Est GFR (Non- Af Amer) > 60, Random Glucose 106, Calcium 9.2, Total Bilirubin 0.6, AST 17 D, ALT 23, Alkaline Phosphatase 61, Total Creatine Kinase 89, Total Protein 8.1, Albumin 4.6, Globulin 3.5, Albumin/Globulin Ratio 1.3 Vital Signs Temp Pulse Resp BP Pulse Ox 04/21/18 07:18 99.5 F 92 H 20 126/81 04/21/18 02:09 97.8 F 100 H 20 127/97 H 04/21/18 01:40 20 04/21/18 01:22 98 04/20/18 21:27 97.6 F 98 H 20 141/78 96 04/20/18 17:37 98.9 F 103 H 18 133/96 H 99 pt was doing well on the following meds: LORazepam [Ativan] 1 mg PO BID risperiDONE [RisperDAL Tab] 1 mg PO DAILY Risperidone [Risperdal] 2 mg PO HS traZODone [Desyrel] 50 mg PO HS pt is willing to resume meds Current Medications: Active Medications Generic Name Dose Route Start Last Admin Trade Name Freq PRN Reason Stop Dose Admin Acetaminophen 650 mg 04/21/18 01:32 04/21/18 10:15 Tylenol 325mg Tab PO 650 mg Q4H PRN Administration Pain, Mild (1-3) Al Hydrox/Mg Hydrox/Simethicone 30 ml 04/21/18 01:32 Maalox Plus 30 Ml PO DAILY PRN Upset Stomach Magnesium Hydroxide 30 ml 04/21/18 01:32 Milk Of Magnesia PO DAILY PRN Constipation Past Psychiatric History - Past Psychiatric History Previous Treatment History: Inpatient Prior Professional Help: see HPI Prior Psychiatric Treatment: see HPI At what hospital: see HPI Duration: see HPI Nature of Treatment: see HPI Explanation of prior treatment: see HPI History of Abuse: see HPI denied History of ETOH/Drug Use: see HPI History of Family Illness: denied Pertinent Medical Hx (Current Medical&Sleep Prob, Allergies): Allergies Allergy/AdvReac Type Severity Reaction Status Date / Time No Known Allergies Allergy Verified 04/21/18 01:34 No Known Home Med 04/20/18 Review of Systems - Review of Systems Systems not reviewed;Unavailable: Acuity of Condition - EENT Eyes: As Per HPI Ears: As Per HPI Nose/Mouth/Throat: As Per HPI - Cardiovascular Cardiovascular: As Per HPI - Respiratory Respiratory: As Per HPI - Gastrointestinal Gastrointestinal: As Per HPI - Genitourinary Genitourinary: As Per HPI - Reproductive: Male Reproductive:Male: As Per HPI - Musculoskeletal Musculoskeletal: As Par HPI - Integumentary Integumentary: As Per HPI - Neurological Neurological: As Per HPI - Psychiatric Psychiatric: As Per HPI - Endocrine Endocrine: As Per HPI - Hematologic/Lymphatic Hematologic: As Per HPI Mental Status Examination - Personal Presentation Personal Presentation: Looks stated age - Affect Affect: Flat (but at times giggling inapropriately) - Motor Activity Motor Activity: Psychomotor Retardation - Reliability in Providing Information Reliability in Providing Information: Poor, due to cognitve impairment - Speech Speech: Disorganized - Formal Thought Process Formal Thought Process: Hallucinations, Other (concrete thought process) - Obsessions/Compulsions Obsessions: None Compulsions: None - Cognitive Functions Orientation: Person, Place Sensorium: Alert Attention/Concentration: Easily distracted Abstract Thinking: [place] Estimate of Intelligence: Below average Judgement: Intact, as evidence by: Insight regarding need for hospitalization - Risk Risk: Diminished functioning - Strength & Assets Inventory Strength & Assets Inventory: Cooperative, Other (good physical health, no aggression) - Limitations Limitations: Other (homelessness, mental illness, noncompliance with meds) DSM 5 DX - DSM 5 DSM 5 Diagnosis: r/o schizophrenia r/o schizoaffective cannabis abuse - Recommended/Plan of Treatment Treatment Recommendations and Plan of Treatment: Milieu/structure/supportive therapy Medical consult was called SW consultation for discharge plan and social issues LORazepam [Ativan] 1 mg PO BID for catatonia risperiDONE [RisperDAL Tab] 1 mg PO DAILY for psychosis Risperidone [Risperdal] 2 mg PO HS for psychosis traZODone [Desyrel] 50 mg PO HS for insomnia and depression pt is willing to resume meds PRN meds Family involvement Follow up on labs Will monitor closely Pt was educated about risk/benefits and alternatives of medications, coping strategies (safety plan, suicide prevention), relapse prevention, importance of follow up with psychiatrist and therapist, stay away from drugs/alcohol/smoking Projected ELOS: 7days Prognosis: guarded Discharge Plan and Discharge Criteria: Pt will be not depressed or manic, will be more hopeful, will be not psychotic or anxious, will be not having thoughts of harming self or others, will be tolerating medications well, will not have major side effects, will be able to function, will not pose threat to self or others. - Smoking Cessation Smoking Cessation Initiated: No Reason for not providing: denied
--- NOTE | 2018-04-21 17:57 | CARD ---
APPROVED REPORT Date of service: 04/20/2018 EKG Measurement Heart [id number] <Conclusion> Sinus tachycardia Otherwise normal ECG
--- NOTE | 2018-04-22 11:12 | PCM.PYCHPN ---
Psychiatric Progress Note - Psychiatric Progress Note Patient seen today, length of contact: 30 min Problems Identified/Issues Discussed: I reviewed recent notes and met with patient at bedside. He is very familiar to me from his very recent hospitalization here last week. Patient reports that he did not take his medication after he was discharged and returned to our hospital for help with functioning. Similar to his prior admission, patient has been quiet, minimally verbal and minimally interactive. He appears preoccupied and has difficulty expressing himself though responses remain perfunctory and relevant to questioning. Patient has been taking his medications and there have been no major behavioral issues. Hasn't been observed to be responding to internal stimuli though appears withdrawn and preoccupied. He generally denies any new concerns including depression, hallucinations, pain, discomfort or side effects. Indicates that sleep was restless last night. Diagnostic Results: r/o schizophrenia r/o schizoaffective cannabis abuse Medication Change: Yes (Increase trazodone) Medical Record Reviewed: Yes Mental Status Examination - Cognitive Function Orientation: Person, Place - Affect Affect: Flat (but at times giggling inapropriately) - Formal Thought Process Formal Thought Process: Hallucinations, Other (concrete thought process) - Homicidal Ideation Homicidal Ideation: No Goal/Treatment Plan - Goal/Treatment Plan Progress Toward Problem(s) and Goals/Treatment Plan: * Milieu/structure/supportive therapy as tolerated * risperdal 1 mg AM and and 2 mg HS for disorganization * ativan 1 mg AM and 1 mg PM for catatonia * trazodone 50 mg po HS increased to 100 mg po HS on 04/22/18, off label for insomnia * I spoke with patient regarding his compliance and injections during prior admission and he refused depot medication. Will attempt to discuss this option with him again when he is more stable. * Vitals reviewed and noted below: 04/21/18 04/21/18 07:18 16:00 Temperature 99.5 F Pulse Rate 92 H 87 Respiratory 20 Rate Blood Pressure 126/81 136/87
--- NOTE | 2018-04-23 10:58 | PCM.PYCHPN ---
Psychiatric Progress Note - Psychiatric Progress Note Patient seen today, length of contact: 30 min Problems Identified/Issues Discussed: I reviewed recent notes and met with patient at bedside and hallway. He is very familiar to me from his very recent hospitalization here last week. Similar to his prior admission, patient has been quiet, minimally verbal and minimally interactive. He appears preoccupied and has difficulty expressing himself with + thought blocking. Although responses remain perfunctory, they are relevant to questioning. Staff noted that patient appeared preoccupied and responding to internal stimuli on Tuesday. Patient has been taking his medications and there have been no major behavioral issues. He denies any side effects and feels a little improved today. Slept better. Patient generally denies any new concerns including depression, hallucinations, pain, discomfort or side effects. He keeps to himself for the most part, this is consistent with his prior admission. As he improves, he will become more related, reactive and communicative. Diagnostic Results: r/o schizophrenia r/o schizoaffective cannabis abuse Medication Change: Yes (Increase trazodone) Medical Record Reviewed: Yes Mental Status Examination - Cognitive Function Orientation: Person, Place - Affect Affect: Flat (but at times giggling inapropriately) - Formal Thought Process Formal Thought Process: Hallucinations, Other (concrete thought process) - Homicidal Ideation Homicidal Ideation: No Goal/Treatment Plan - Goal/Treatment Plan Progress Toward Problem(s) and Goals/Treatment Plan: * Milieu/structure/supportive therapy as tolerated * risperdal 1 mg AM and and 2 mg HS for disorganization * ativan 1 mg AM and 1 mg PM for catatonia * trazodone 50 mg po HS increased to 100 mg po HS on 04/22/18, off label for insomnia * I spoke with patient regarding his compliance and injections during prior admission and he refused depot medication. Will attempt to discuss this option with him again when he is more stable. * Vitals reviewed and noted below: Selected Entries 04/22/18 04/22/18 07:20 15:00 Temperature 97.8 F Pulse Rate 91 H 85 Respiratory 20 Rate Blood Pressure 127/84 114/80 * No new weekend lab results noted
--- NOTE | 2018-04-24 16:32 | PCM.PYCHPN ---
Psychiatric Progress Note - Psychiatric Progress Note Patient seen today, length of contact: 30 min Patient Chief Complaint: "hm, okay, hm" Problems Identified/Issues Discussed: Suicide/ homicide prevention, past psychiatric h/o, current psychiatric symptoms , medical problems, risk/benefits and alternatives of medications, medications compliance, coping strategies, substance abuse h/o, relapse prevention, importance of follow up with psychiatrist and therapist, discharge plan. Medical Problems: catatonia Diagnostic Results: 04/20/18 19:07 04/20/18 19:07 Lab Results 04/20/18 19:34: Urine Opiates Screen Negative, Urine Methadone Screen Negative, Ur Barbiturates Screen Negative, Ur Phencyclidine Scrn Negative, Ur Amphetamines Screen Negative, U Benzodiazepines Scrn Negative, U Oth Cocaine Metabols Negative, U Cannabinoids Screen Negative 04/20/18 19:34: Urine Color Light yellow, Urine Appearance Clear, Urine pH 7.0, Ur Specific [place] 1.015, Urine Protein Negative, Urine Glucose (UA) Negative, Urine Ketones Trace H, Urine Blood Negative, Urine Nitrate Negative, Urine Bilirubin Negative, Urine Urobilinogen 1.0 H, Ur Leukocyte Esterase Negative 04/20/18 19:07: WBC 8.8 D, RBC 4.82, Hgb 14.4, Hct 42.0, MCV 87.1, MCH 29.9, MCHC 34.3, RDW 12.9, Plt Count 243, MPV 10.8, Gran % 59.2, Lymph % (Auto) 29.6, [place] % (Auto) 9.9 H, Eos % (Auto) 0.7 L, Baso % (Auto) 0.6, Gran # 5.18, Lymph # (Auto) 2.6, [place] # (Auto) 0.9 H, Eos # (Auto) 0.1, Baso # (Auto) 0.05 04/20/18 19:07: Alcohol, Quantitative < 10 04/20/18 19:07: Salicylates < 1 L, Acetaminophen < 10.0 L 04/20/18 19:07: Sodium 141, Potassium 3.8, Chloride 101, Carbon Dioxide 26, Anion Gap 18, BUN 15, Creatinine 1.2, Est GFR ( Amer) > 60, Est GFR (Non- Af Amer) > 60, Random Glucose 106, Calcium 9.2, Total Bilirubin 0.6, AST 17 D, ALT 23, Alkaline Phosphatase 61, Total Creatine Kinase 89, Total Protein 8.1, Albumin 4.6, Globulin 3.5, Albumin/Globulin Ratio 1.3 Vital Signs Temp Pulse Resp BP Pulse Ox 04/24/18 07:18 97.9 F 68 20 99/56 L 04/23/18 21:50 88 118/86 04/23/18 07:40 98.4 F 71 20 106/63 04/22/18 15:00 85 114/80 04/22/18 07:20 97.8 F 91 H 20 127/84 04/21/18 16:00 87 136/87 04/21/18 07:18 99.5 F 92 H 20 126/81 04/21/18 02:09 97.8 F 100 H 20 127/97 H 04/21/18 01:40 20 04/21/18 01:22 98 04/20/18 21:27 97.6 F 98 H 20 141/78 96 04/20/18 17:37 98.9 F 103 H 18 133/96 H 99 DSM 5 Symptoms Update: Shortly pt is a 23 yo single male with history of mood and psychotic symptoms, most likely schizophrenia spectrum disorder, multiple psychiatric admissions in the past, pt was d/c [place] [facility] at the beginning of this week 04/17/18, on the next day pt came to ED 04/18/18, was discharged, pt has h/o of cannabis use, homelessness, pt has h/o of being found wandering in traffic, chasing cars down , this automatic typewriter inspector is very familiar with this pt from the previous admission. psychiatrist legal contracts specialist recommended admission for that pt, pt requires further evaluation, stabilization, meds resumption and titration. pt was seen at the treatment team meeting room, pt still has difficulties to express himself, patient observed to be internally preoccupied, responding to internal stimuli, affect was bright, mood incongruent, patient giggling inappropriately. pt has neurocognitive deficit, concrete thought process. acceptable personal hygiene, fair ADLs. pt denied feeling hopeless/helpless denied psychotic symptoms, but obviously disorganized and giggling inappropriately Patient tolerates medications wellNo side effects observed or reported, aims 0, no EPS. impression: schizophrenia Medication Change: Yes (risperdal and Ativan increased) Medical Record Reviewed: Yes Consults ordered or reviewed: patient is relatively healthy, was seen by medical team and the emergency room Mental Status Examination - Cognitive Function Orientation: Person, Place Memory: Impaired Attention: Poor Concentration: Poor Association: Loose Fund of Knowledge: Poor - Mood Mood: Depressed - Affect Affect: Flat (but at times giggling inapropriately) - Formal Thought Process Formal Thought Process: Hallucinations, Other (concrete thought process) - Suicidal Ideation Suicidal Ideation: No - Homicidal Ideation Homicidal Ideation: No Goal/Treatment Plan - Goal/Treatment Plan Need for Continued Stay: Remain at risks for inpatient hospitalization, Severe depression anxiety, Discharge may exacerbated symptoms, Failed transitioning, Severe functional impairment Progress Toward Problem(s) and Goals/Treatment Plan: Milieu/structure/supportive therapy Medical consult was called SW consultation for discharge plan and social issues LORazepam [Ativan] 1 mg PO TID for catatonia risperiDONE [RisperDAL Tab] mg PO DAILY for psychosis Risperidone [Risperdal] 2 mg PO HS for psychosis traZODone [Desyrel] 100 mg PO HS for insomnia and depression pt is willing to resume meds PRN meds Family involvement Follow up on labs Will monitor closely Pt was educated about risk/benefits and alternatives of medications, coping strategies (safety plan, suicide prevention), relapse prevention, importance of follow up with psychiatrist and therapist, stay away from drugs/alcohol/smoking Estimated Date of D/C: 04/28/18
--- NOTE | 2018-04-25 16:01 | PCM.PYCHPN ---
Psychiatric Progress Note - Psychiatric Progress Note Patient seen today, length of contact: 30 min Patient Chief Complaint: "I have shakes, my muscles hurting me" Problems Identified/Issues Discussed: Suicide/ homicide prevention, past psychiatric h/o, current psychiatric symptoms , medical problems, risk/benefits and alternatives of medications, medications compliance, coping strategies, substance abuse h/o, relapse prevention, importance of follow up with psychiatrist and therapist, discharge plan. Medical Problems: catatonia Diagnostic Results: 04/20/18 19:07 04/20/18 19:07 Lab Results 04/20/18 19:34: Urine Opiates Screen Negative, Urine Methadone Screen Negative, Ur Barbiturates Screen Negative, Ur Phencyclidine Scrn Negative, Ur Amphetamines Screen Negative, U Benzodiazepines Scrn Negative, U Oth Cocaine Metabols Negative, U Cannabinoids Screen Negative 04/20/18 19:34: Urine Color Light yellow, Urine Appearance Clear, Urine pH 7.0, Ur Specific [place] 1.015, Urine Protein Negative, Urine Glucose (UA) Negative, Urine Ketones Trace H, Urine Blood Negative, Urine Nitrate Negative, Urine Bilirubin Negative, Urine Urobilinogen 1.0 H, Ur Leukocyte Esterase Negative 04/20/18 19:07: WBC 8.8 D, RBC 4.82, Hgb 14.4, Hct 42.0, MCV 87.1, MCH 29.9, MCHC 34.3, RDW 12.9, Plt Count 243, MPV 10.8, Gran % 59.2, Lymph % (Auto) 29.6, [place] % (Auto) 9.9 H, Eos % (Auto) 0.7 L, Baso % (Auto) 0.6, Gran # 5.18, Lymph # (Auto) 2.6, [place] # (Auto) 0.9 H, Eos # (Auto) 0.1, Baso # (Auto) 0.05 04/20/18 19:07: Alcohol, Quantitative < 10 04/20/18 19:07: Salicylates < 1 L, Acetaminophen < 10.0 L 04/20/18 19:07: Sodium 141, Potassium 3.8, Chloride 101, Carbon Dioxide 26, Anion Gap 18, BUN 15, Creatinine 1.2, Est GFR ( Amer) > 60, Est GFR (Non- Af Amer) > 60, Random Glucose 106, Calcium 9.2, Total Bilirubin 0.6, AST 17 D, ALT 23, Alkaline Phosphatase 61, Total Creatine Kinase 89, Total Protein 8.1, Albumin 4.6, Globulin 3.5, Albumin/Globulin Ratio 1.3 Vital Signs Temp Pulse Resp BP Pulse Ox 04/24/18 07:18 97.9 F 68 20 99/56 L 04/23/18 21:50 88 118/86 04/23/18 07:40 98.4 F 71 20 106/63 04/22/18 15:00 85 114/80 04/22/18 07:20 97.8 F 91 H 20 127/84 04/21/18 16:00 87 136/87 04/21/18 07:18 99.5 F 92 H 20 126/81 04/21/18 02:09 97.8 F 100 H 20 127/97 H 04/21/18 01:40 20 04/21/18 01:22 98 04/20/18 21:27 97.6 F 98 H 20 141/78 96 04/20/18 17:37 98.9 F 103 H 18 133/96 H 99 DSM 5 Symptoms Update: Shortly pt is a 23 yo single male with history of mood and psychotic symptoms, most 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 psychiatrist sales operations analyst recommended admission for that pt, pt requires further evaluation, stabilization, meds resumption and titration. pt was seen next to the Nursing station, pt still has difficulties to express himself, patient observed to be internally preoccupied, responding to internal stimuli, affect was bright, mood incongruent, patient giggling inappropriately , patient complained stiffness of his muscles, and upper extremities shakiness, Cogentin was added. pt has neurocognitive deficit, concrete thought process. acceptable personal hygiene, fair ADLs. pt denied feeling hopeless/helpless denied psychotic symptoms, but obviously disorganized and giggling inappropriately Patient tolerates medications wellNo side effects observed or reported, aims 0, no EPS. impression: schizophrenia Medication Change: Yes (Cogentin) Medical Record Reviewed: Yes Mental Status Examination - Cognitive Function Orientation: Person, Place Memory: Impaired Attention: Poor Concentration: Poor Association: Loose Fund of Knowledge: Poor - Mood Mood: Depressed - Affect Affect: Flat (but at times giggling inapropriately) - Formal Thought Process Formal Thought Process: Hallucinations, Other (concrete thought process) - Suicidal Ideation Suicidal Ideation: No - Homicidal Ideation Homicidal Ideation: No Goal/Treatment Plan - Goal/Treatment Plan Need for Continued Stay: Remain at risks for inpatient hospitalization, Severe depression anxiety, Discharge may exacerbated symptoms, Failed transitioning, Severe functional impairment Progress Toward Problem(s) and Goals/Treatment Plan: Milieu/structure/supportive therapy Medical consult was called SW consultation for discharge plan and social issues LORazepam [Ativan] 1 mg PO TID for catatonia risperiDONE [RisperDAL Tab] mg PO DAILY for psychosis Risperidone [Risperdal] 2 mg PO HS for psychosis traZODone [Desyrel] 100 mg PO HS for insomnia and depression Cogentin 1 mg a.m. and at bedtime pt is willing to resume meds PRN meds Family involvement Follow up on labs Will monitor closely Pt was educated about risk/benefits and alternatives of medications, coping strategies (safety plan, suicide prevention), relapse prevention, importance of follow up with psychiatrist and therapist, stay away from drugs/alcohol/smoking Estimated Date of D/C: 04/28/18
--- NOTE | 2018-04-26 11:16 | PCM.PYCHPN ---
Psychiatric Progress Note - Psychiatric Progress Note Patient seen today, length of contact: 30 min Problems Identified/Issues Discussed: I reviewed recent notes and met with patient at bedside and hallway. He is very familiar to me from his very recent hospitalization here last week. Similar to his prior admission, patient has been quiet, minimally verbal and minimally interactive. He appears preoccupied and has difficulty expressing himself with + thought blocking. Although responses remain perfunctory, they are relevant to questioning. Staff noted that patient appeared preoccupied and responding to internal stimuli last Tuesday (x4 days ago) and Dr. Boateng noted that patient was giggling inappropriately during her interview with him yesterday. Patient has been taking his medications and there have been no major behavioral issues. He denies any side effects and feels that he is improving. He still appears flat, shy, mildly odd and quiet. Focus, reactivity and awareness are slowly improving. Patient still appears unrelated and passive without much spontaneity or emotion. Patient generally denies any new concerns including depression, hallucinations, pain, discomfort or side effects. He keeps to himself for the most part, this is consistent with his prior admission. As he continues to improves, he will become more related, reactive, communicative and social on the unit. He's not at that point yet. Diagnostic Results: r/o schizophrenia r/o schizoaffective cannabis abuse Medication Change: No ( ) Medical Record Reviewed: Yes Mental Status Examination - Cognitive Function Orientation: Person, Place Memory: Impaired Attention: Poor Concentration: Poor Association: Loose Fund of Knowledge: Poor - Mood Mood: Depressed - Affect Affect: Flat (but at times giggling inapropriately) - Formal Thought Process Formal Thought Process: Hallucinations, Other (concrete thought process) - Suicidal Ideation Suicidal Ideation: No - Homicidal Ideation Homicidal Ideation: No Goal/Treatment Plan - Goal/Treatment Plan Need for Continued Stay: Remain at risks for inpatient hospitalization, Severe depression anxiety, Discharge may exacerbated symptoms, Failed transitioning, Severe functional impairment Progress Toward Problem(s) and Goals/Treatment Plan: * Milieu/structure/supportive therapy as tolerated * c/w current tx and plan * I spoke with patient regarding his compliance and injections during prior admission and he refused depot medication. Patient appears to be considering this option at this time (at least he isn't immediately refusing it when I discuss it). Will continue to discuss this option with him again as he stabilizes * Vitals reviewed and noted below: Selected Entries 04/25/18 04/25/18 07:00 16:00 Temperature 97.6 F Pulse Rate 81 90 Respiratory 18 Rate Blood Pressure 111/80 135/82 * No new lab results noted Estimated Date of D/C: 04/28/18
--- NOTE | 2018-04-27 10:10 | PCM.PYCHPN ---
Psychiatric Progress Note - Psychiatric Progress Note Patient seen today, length of contact: 30 min Problems Identified/Issues Discussed: I reviewed recent notes and met with patient in the hallway. He is very familiar to me from his very recent hospitalization here last week. Similar to his prior admission, patient has been quiet, minimally verbal and minimally interactive. He appears preoccupied and continues to have some difficulty expressing himself with +thought blocking. Although responses remain perfunctory , they are relevant to questioning. Staff noted that patient appeared preoccupied and responding to internal stimuli last Tuesday (x4 days ago) and Dr. Boateng noted that patient was giggling inappropriately during her interview with him x2 days ago. There has been no recurrence of these behaviors thus far. Patient has been taking his medications and there have been no major behavioral issues. He denies any side effects and feels that he is improving. He still appears flat, shy, mildly odd and quiet. Focus, reactivity, spontaneity and awareness are slowly improving. Overall, patient still appears blunt and passive. Patient generally denies any new concerns including depression, hallucinations, pain, discomfort or side effects. He keeps to himself for the most part, this is consistent with his prior admission. As he continues to improves, he will become more related, reactive, communicative and social on the unit. He's not at that point yet though was observed playing cards with peers yesterday. Diagnostic Results: r/o schizophrenia r/o schizoaffective cannabis abuse Medication Change: No ( ) Medical Record Reviewed: Yes Mental Status Examination - Cognitive Function Orientation: Person, Place Memory: Impaired Attention: Poor Concentration: Poor Association: Loose Fund of Knowledge: Poor - Mood Mood: Depressed - Affect Affect: Flat (but at times giggling inapropriately) - Formal Thought Process Formal Thought Process: Hallucinations, Other (concrete thought process) - Suicidal Ideation Suicidal Ideation: No - Homicidal Ideation Homicidal Ideation: No Goal/Treatment Plan - Goal/Treatment Plan Need for Continued Stay: Remain at risks for inpatient hospitalization, Severe depression anxiety, Discharge may exacerbated symptoms, Failed transitioning, Severe functional impairment Progress Toward Problem(s) and Goals/Treatment Plan: * Milieu/structure/supportive therapy as tolerated * c/w current tx and plan * I spoke with patient regarding his compliance and injections during prior admission and he refused depot medication. Patient appears to be more open to this option during this admission but still has reservation because "they'e [ shots] are painful". Will continue to discuss this option with him again as he stabilizes * Vitals reviewed and noted below: Selected Entries 04/26/18 04/26/18 07:21 16:05 Temperature 98.2 F Pulse Rate 72 85 Respiratory 20 Rate Blood Pressure 125/83 117/81 * No new lab results noted Estimated Date of D/C: 04/28/18
[2018-04-28 07:21] VITALS: RESP 20
--- NOTE | 2018-04-28 10:01 | PCM.BM ---
Treatment Plan Problems - Problems identified on initial assessmt DEPRESSION Date Initiated: 04/21/18 Time Initiated: 02:00 Assessment reference: NA Status: Active Priority: 1 ALTERED THOUGHT PROCESS Date Initiated: 04/21/18 Time Initiated: 02:00 Assessment reference: NA Status: Active Priority: 2 MEDICATION NON ADHERENCE Date Initiated: 04/21/18 Time Initiated: 02:00 Assessment reference: NA Status: Active Priority: 3 INEFFECTIVE COPING Date Initiated: 04/21/18 Time Initiated: 02:00 Assessment reference: NA Status: Active Priority: 1 Treatment assets and liabiliti Patient Assests: adapts well, cooperative, self-reliant, ADL independent, physically healthy, negotiates basic needs, cognitively intact Patient Liabilities: live alone, financial problems, poor support system, relationship conflicts, substance abuse - Milieu Protocol Maintain good personal hygiene: daily Encourage regular showers, every shift Remind patient to perform daily oral care, every shift Assist patient to perform ADL's Maintain personal safety: every shift Educate patient to report safety concerns to staff, every shift Monitor environment for contraband/sharps Medication safety: Monitor for expected outcome, potential side effects: every shift, Assess barriers to learning: every shift, Assess readiness for medication education: every shift Milieu Narrative: * Milieu/structure/supportive therapy as tolerated * c/w current tx and plan * I spoke with patient regarding his compliance and injections during prior admission and he refused depot medication. Patient appears to be more open to this option during this admission but still has reservation because "they'e [ shots] are painful". Will continue to discuss this option with him again as he stabilizes * Vitals reviewed and noted below: Selected Entries 04/27/18 04/27/18 07:15 16:22 Temperature 97.7 F Pulse Rate 81 99 H Respiratory 20 19 Rate Blood Pressure 117/71 124/74 * No new lab results noted Family Contact Family involvement: Famliy/SO not involved Discharge/Continuing Care - Education Needs Education Needs: Patient Medication, Patient Diagnosis/Disease Process, Patient Coping Skills, Patient Placement options, Patient Uses of Medical Equipment, Patient Health Practices/Safety, Patient Personal Hygiene/Grooming, Patient Aftercare Safety Plan - Discharge Discharge Criteria: Tolerates medication w/o severe side effects, Free of Suicidal thoughts, Free of paranoid thoughts, Normal sleep pattern, Ability to care for self - Treatment Team Participation Patient/Family/SO Statement: * Milieu/structure/supportive therapy as tolerated * c/w current tx and plan * I spoke with patient regarding his compliance and injections during prior admission and he refused depot medication. Patient appears to be more open to this option during this admission but still has reservation because "they'e [ shots] are painful". Will continue to discuss this option with him again as he stabilizes * Vitals reviewed and noted below: Selected Entries 04/27/18 04/27/18 07:15 16:22 Temperature 97.7 F Pulse Rate 81 99 H Respiratory 20 19 Rate Blood Pressure 117/71 124/74 * No new lab results noted Treatment Plan Review - Problem DEPRESSION Time Initiated: 02:00 ALTERED THOUGHT PROCESS Time Initiated: 02:00 MEDICATION NON ADHERENCE Time Initiated: 02:00 INEFFECTIVE COPING Time Initiated: 02:00
--- NOTE | 2018-04-28 11:34 | PCM.PYCHPN ---
Psychiatric Progress Note - Psychiatric Progress Note Patient seen today, length of contact: 30 min Problems Identified/Issues Discussed: I reviewed recent notes and met with patient in the hallway. He is very familiar to me from his very recent hospitalization here last week. Similar to his prior admission, patient presents as quiet, mute and minimally interactive. He still appears flat, shy, mildly odd and quiet. Affect is preoccupied and he still has difficulty expressing himself with +thought blocking (though this is improving daily). Focus, reactivity, spontaneity and awareness are slowly improving. Overall, patient still appears blunt, passive with perfunctory responses. Patient has been taking his medications and there have been no major behavioral issues. He denies any side effects and feels that he is improving. Staff noted that patient appeared preoccupied and responding to internal stimuli last Tuesday (x6 days ago) and Dr. Boateng noted that patient was giggling inappropriately during her interview with him x3 days ago. There has been no recurrence of these behaviors thus far. Patient generally denies any new concerns including depression, hallucinations, pain, discomfort or side effects. He keeps to himself for the most part, this is consistent with his prior admission. As he continues to improves, he will become more related, reactive, communicative and social on the unit. He's not at that point yet though was observed playing cards with peers yesterday and has been spending more time in the community. Diagnostic Results: r/o schizophrenia r/o schizoaffective cannabis abuse Medication Change: No ( ) Medical Record Reviewed: Yes Mental Status Examination - Cognitive Function Orientation: Person, Place Memory: Impaired Attention: Poor Concentration: Poor Association: Loose Fund of Knowledge: Poor - Mood Mood: Depressed - Affect Affect: Flat (but at times giggling inapropriately) - Formal Thought Process Formal Thought Process: Hallucinations, Other (concrete thought process) - Suicidal Ideation Suicidal Ideation: No - Homicidal Ideation Homicidal Ideation: No Goal/Treatment Plan - Goal/Treatment Plan Need for Continued Stay: Remain at risks for inpatient hospitalization, Severe depression anxiety, Discharge may exacerbated symptoms, Failed transitioning, Severe functional impairment Progress Toward Problem(s) and Goals/Treatment Plan: * Milieu/structure/supportive therapy as tolerated * c/w current tx and plan * I spoke with patient regarding his compliance and injections during prior admission and he refused depot medication. Patient appears to be more open to this option during this admission but still has reservation because "they'e [ shots] are painful". Will continue to discuss this option with him again as he stabilizes * Vitals reviewed and noted below: Selected Entries 04/27/18 04/27/18 07:15 16:22 Temperature 97.7 F Pulse Rate 81 99 H Respiratory 20 19 Rate Blood Pressure 117/71 124/74 * No new lab results noted Estimated Date of D/C: 04/28/18
--- NOTE | 2018-04-29 09:48 | PCM.PYCHPN ---
Psychiatric Progress Note - Psychiatric Progress Note Patient seen today, length of contact: 30 min Problems Identified/Issues Discussed: I reviewed recent notes and met with patient in the hallway. He is very familiar to me from his very recent hospitalization here last week. Similar to his prior admission, patient initially presented as quiet, mute and minimally interactive. He still appears flat, shy, mildly odd and quiet. Affect is preoccupied and he still has difficulty expressing himself with +thought blocking (though this is improving daily). Focus, reactivity, spontaneity and awareness are slowly improving. Overall, patient still appears blunt and passive. His responses are simple, relevant and without elaboration. Patient has been taking his medications and there have been no major behavioral issues. He denies any side effects and feels that he is improving. Staff noted that patient appeared preoccupied and responding to internal stimuli last Tuesday (x1 week ago) and Dr. Boateng noted that patient was giggling inappropriately during her interview with him x4 days ago. There has been no recurrence of these behaviors thus far. Patient generally denies any new concerns including depression, hallucinations, pain, discomfort or side effects. He keeps to himself for the most part, this is consistent with his prior admission. As he continues to improves, he will become more related, reactive, communicative and social on the unit. He's not at that point yet, he is usually a little more animated during our interviews. However he was observed playing cards with peers x2 days ago and interacting more with peers yesterday and this morning. These are good signs. Diagnostic Results: r/o schizophrenia r/o schizoaffective cannabis abuse Medication Change: Yes (Increased risperdal on 04/29/18) Medical Record Reviewed: Yes Mental Status Examination - Cognitive Function Orientation: Person, Place Memory: Impaired Attention: Poor Concentration: Poor Association: Loose Fund of Knowledge: Poor - Mood Mood: Depressed - Affect Affect: Flat (but at times giggling inapropriately) - Formal Thought Process Formal Thought Process: Hallucinations, Other (concrete thought process) - Suicidal Ideation Suicidal Ideation: No - Homicidal Ideation Homicidal Ideation: No Goal/Treatment Plan - Goal/Treatment Plan Need for Continued Stay: Remain at risks for inpatient hospitalization, Severe depression anxiety, Discharge may exacerbated symptoms, Failed transitioning, Severe functional impairment Progress Toward Problem(s) and Goals/Treatment Plan: * Milieu/structure/supportive therapy as tolerated * c/w current tx and plan * Increased Risperdal from 2 mg AM and 2 mg HS to 2 mg AM and 3 mg HS on 04/29/18 * c/w Ativan 1 mg po TID * c/w cogentin 1 mg po AMHS for EPS prophylaxis. * c/w Trazodone 50 mg HS, off label for insomnia * I spoke with patient regarding his compliance and injections during prior admission and he refused depot medication. Patient appears to be more open to this option during this admission but still has reservation because "they'e [ shots] are painful". Will continue to discuss this option with him again as he stabilizes * Vitals reviewed and noted below: Selected Entries 04/28/18 04/28/18 07:19 15:05 Temperature 97.9 F Pulse Rate 65 100 H Respiratory 20 Rate Blood Pressure 157/69 H 130/79 * No new lab results noted Estimated Date of D/C: 04/28/18
--- NOTE | 2018-04-30 10:09 | PCM.PYCHPN ---
Psychiatric Progress Note - Psychiatric Progress Note Patient seen today, length of contact: 30 min Problems Identified/Issues Discussed: I reviewed recent notes and met with patient at bedside. He is very familiar to me from his very recent hospitalization here last week. Similar to prior admissions, patient initially presented as quiet, mute and minimally interactive. He still appears flat, shy, mildly odd and quiet. Affect is preoccupied and staff note that he continues to be guard with +thought blocking. Overall, patient still appears blunt and passive. Nonetheless his focus, reactivity, spontaneity and awareness are slowly improving. His responses remain simple, relevant and without elaboration. Patient has been taking his medications and there have been no major behavioral issues. He denies any side effects and feels that he is improving. Staff noted that patient appeared preoccupied and responding to internal stimuli last Tuesday (x8 days ago) and Dr. Boateng noted that patient was giggling inappropriately during her interview with him x5 days ago. There has been no recurrence of these behaviors thus far. Patient generally denies any new concerns including depression, hallucinations, pain, discomfort or side effects. He keeps to himself for the most part, this is consistent with his prior admission. As he continues to improves, he will become more related, reactive, communicative and social on the unit. He's not at that point yet, he is usually a little more animated during our interviews. However he was observed playing cards with peers x3 days ago and interacting more with peers over the weekend. These are good signs. Diagnostic Results: r/o schizophrenia r/o schizoaffective cannabis abuse Medication Change: Yes (Increased risperdal on 04/29/18) Medical Record Reviewed: Yes Mental Status Examination - Cognitive Function Orientation: Person, Place Memory: Impaired Attention: Poor Concentration: Poor Association: Loose Fund of Knowledge: Poor - Mood Mood: Depressed - Affect Affect: Flat (but at times giggling inapropriately) - Formal Thought Process Formal Thought Process: Hallucinations, Other (concrete thought process) - Suicidal Ideation Suicidal Ideation: No - Homicidal Ideation Homicidal Ideation: No Goal/Treatment Plan - Goal/Treatment Plan Need for Continued Stay: Remain at risks for inpatient hospitalization, Severe depression anxiety, Discharge may exacerbated symptoms, Failed transitioning, Severe functional impairment Progress Toward Problem(s) and Goals/Treatment Plan: * Milieu/structure/supportive therapy as tolerated * c/w current tx and plan * Increased Risperdal from 2 mg AM and 2 mg HS to 2 mg AM and 3 mg HS on 04/29/18 * c/w Ativan 1 mg po TID * c/w cogentin 1 mg po AMHS for EPS prophylaxis. * c/w Trazodone 50 mg HS, off label for insomnia * I spoke with patient regarding his compliance and injections during prior admission and he refused depot medication. Patient appears to be more open to this option during this admission but still has reservation because "they'e [ shots] are painful". Will continue to discuss this option with him again as he stabilizes * Vitals reviewed and noted below: Selected Entries 04/29/18 04/29/18 07:15 16:50 Temperature 98.3 F Pulse Rate 104 H 75 Respiratory 20 20 Rate Blood Pressure 119/83 124/84 * No new lab results noted Estimated Date of D/C: 04/28/18
--- NOTE | 2018-05-01 10:50 | PCM.PYCHPN ---
Psychiatric Progress Note - Psychiatric Progress Note Patient seen today, length of contact: 30 min Problems Identified/Issues Discussed: I reviewed recent notes and met with patient at bedside. He is very familiar to me from his very recent hospitalization here last week. Similar to prior admissions, patient initially presented as quiet, mute and minimally interactive. Staff noted that patient appeared preoccupied and responding to internal stimuli x9 days ago and Dr. Boateng noted that patient was giggling inappropriately during her interview with him x6 days ago. There has been no recurrence of aforementioned behaviors and focus, reactivity , spontaneity and awareness seemed to be slowly improving until this holiday weekend. He just seemed to be getting more preoccupied, guarded and odd in the last couple of days. Staff note that he is guarded, blunt with +thought blocking. Overall he still appears flat, shy and quiet. Patient has been taking his medications and there have been no major behavioral issues. He denies any side effects and passively reports that he is improving. Patient still denies any new concerns including depression, hallucinations, pain , discomfort or side effects. His responses remain simple, relevant and without elaboration. He keeps to himself for the most part, this is consistent with his prior admission. As he continues to improves, he will become more related, reactive, communicative and social on the unit. He's not at that point yet and for some reason it is taking longer for him to stabilize during this admission though medications were not changed (if anything, risperdal dose is 1 mg higher at night). He is usually a little more animated during our interviews by now. It is also possible patient is exaggerating symptoms for secondary gain because he is homeless. During last admission, he joked and stated "I want to stay here forever, I like it here" Diagnostic Results: r/o schizophrenia r/o schizoaffective cannabis abuse Medication Change: Yes (Increased risperdal on 04/29/18) Medical Record Reviewed: Yes Mental Status Examination - Cognitive Function Orientation: Person, Place Memory: Impaired Attention: Poor Concentration: Poor Association: Loose Fund of Knowledge: Poor - Mood Mood: Depressed (DENIED ) - Affect Affect: Blunted, Flat (but at times giggling inapropriately) - Formal Thought Process Formal Thought Process: Hallucinations (DENIED), Other (concrete thought process ) - Suicidal Ideation Suicidal Ideation: No - Homicidal Ideation Homicidal Ideation: No Goal/Treatment Plan - Goal/Treatment Plan Need for Continued Stay: Remain at risks for inpatient hospitalization, Severe depression anxiety, Discharge may exacerbated symptoms, Failed transitioning, Severe functional impairment Progress Toward Problem(s) and Goals/Treatment Plan: * Milieu/structure/supportive therapy as tolerated * c/w current tx and plan * Increased Risperdal from 2 mg AM and 2 mg HS to 2 mg AM and 3 mg HS on . On 05/01/18, requested that staff double check patient for cheeking. * c/w Ativan 1 mg po TID * c/w cogentin 1 mg po AMHS for EPS prophylaxis. * c/w Trazodone 50 mg HS, off label for insomnia * I spoke with patient regarding his compliance and injections during prior admission and he refused depot medication. Patient appears to be more open to this option during this admission but still has reservations because "they [ shots] are painful". Will continue to discuss this option with him again as he stabilizes * Vitals reviewed and noted below: Selected Entries 04/30/18 04/30/18 07:07 16:00 Temperature 97.8 F Pulse Rate 70 67 Respiratory 20 Rate Blood Pressure 110/64 119/61 * No new lab results noted Estimated Date of D/C: 04/28/18
--- NOTE | 2018-05-02 14:34 | PCM.PYCHPN ---
Psychiatric Progress Note - Psychiatric Progress Note Patient seen today, length of contact: 30 min Patient Chief Complaint: "I am okay" Problems Identified/Issues Discussed: Suicide/ homicide prevention, past psychiatric h/o, current psychiatric symptoms , medical problems, risk/benefits and alternatives of medications, medications compliance, coping strategies, substance abuse h/o, relapse prevention, importance of follow up with psychiatrist and therapist, discharge plan. Medical Problems: catatonia Diagnostic Results: 04/20/18 19:07 04/20/18 19:07 Lab Results 04/20/18 19:34: Urine Opiates Screen Negative, Urine Methadone Screen Negative, Ur Barbiturates Screen Negative, Ur Phencyclidine Scrn Negative, Ur Amphetamines Screen Negative, U Benzodiazepines Scrn Negative, U Oth Cocaine Metabols Negative, U Cannabinoids Screen Negative 04/20/18 19:34: Urine Color Light yellow, Urine Appearance Clear, Urine pH 7.0, Ur Specific [place] 1.015, Urine Protein Negative, Urine Glucose (UA) Negative, Urine Ketones Trace H, Urine Blood Negative, Urine Nitrate Negative, Urine Bilirubin Negative, Urine Urobilinogen 1.0 H, Ur Leukocyte Esterase Negative 04/20/18 19:07: WBC 8.8 D, RBC 4.82, Hgb 14.4, Hct 42.0, MCV 87.1, MCH 29.9, MCHC 34.3, RDW 12.9, Plt Count 243, MPV 10.8, Gran % 59.2, Lymph % (Auto) 29.6, [place] % (Auto) 9.9 H, Eos % (Auto) 0.7 L, Baso % (Auto) 0.6, Gran # 5.18, Lymph # (Auto) 2.6, [place] # (Auto) 0.9 H, Eos # (Auto) 0.1, Baso # (Auto) 0.05 04/20/18 19:07: Alcohol, Quantitative < 10 04/20/18 19:07: Salicylates < 1 L, Acetaminophen < 10.0 L 04/20/18 19:07: Sodium 141, Potassium 3.8, Chloride 101, Carbon Dioxide 26, Anion Gap 18, BUN 15, Creatinine 1.2, Est GFR ( Amer) > 60, Est GFR (Non- Af Amer) > 60, Random Glucose 106, Calcium 9.2, Total Bilirubin 0.6, AST 17 D, ALT 23, Alkaline Phosphatase 61, Total Creatine Kinase 89, Total Protein 8.1, Albumin 4.6, Globulin 3.5, Albumin/Globulin Ratio 1.3 Vital Signs Temp Pulse Resp BP Pulse Ox 04/24/18 07:18 97.9 F 68 20 99/56 L 04/23/18 21:50 88 118/86 04/23/18 07:40 98.4 F 71 20 106/63 04/22/18 15:00 85 114/80 04/22/18 07:20 97.8 F 91 H 20 127/84 04/21/18 16:00 87 136/87 04/21/18 07:18 99.5 F 92 H 20 126/81 04/21/18 02:09 97.8 F 100 H 20 127/97 H 04/21/18 01:40 20 04/21/18 01:22 98 04/20/18 21:27 97.6 F 98 H 20 141/78 96 04/20/18 17:37 98.9 F 103 H 18 133/96 H 99 Temp Pulse Resp BP Pulse Ox 97.9 F 98 H 20 115/60 98 05/02/18 07:18 05/02/18 07:18 05/02/18 07:18 05/02/18 07:18 04/21/18 01:22 DSM 5 Symptoms Update: pt was seen and examined, notes reviewed, labs reviewed, medications reviewed. As per staff report patient improving, socializing with others, has good appetite and sleep, patient does not exhibit any aggressive or agitated behavior , no behavioral issues. Patient was seen and examined today at the treatment team meeting, pt presented with acceptable personal hygiene, was calm and cooperative, pt presented with some psychomotor retardation while was talking to this typewriter repairer, but as per staff report pt has full range of affect and socializing with others when this typewriter repairer is not observing him. as per ' assessment It is also possible patient is exaggerating symptoms for secondary gain because he is homeless. During last admission, he joked and stated "I want to stay here forever, I like it here", agree that it might be secondary gain. pt was educated that pt is scheduled for d/c tomorrow, intake appt is in [facility] program at 9:30 am. pt agreed with d/c plan. Patient tolerates medications well, no side effects observed or reported, aims 0 , no EPS. Pt is guarded, blunt with +thought blocking. Overall he still appears flat, shy and quiet, which seems to be chronic. Diagnostic Results: r/o schizophrenia r/o schizoaffective cannabis abuse Medication Change: Yes (Increased risperdal on 04/29/18) Medical Record Reviewed: Yes Consults ordered or reviewed: patient is relatively healthy, was seen by medical team and the emergency room Mental Status Examination - Cognitive Function Orientation: Person, Place Memory: Impaired Attention: Poor (some improvement) Concentration: Poor (some improvement) Association: Loose (chronic) Fund of Knowledge: Poor (chronic) - Mood Mood: Depressed (DENIED ) - Affect Affect: Constricted (but smiled today) - Speech Speech: Soft - Formal Thought Process Formal Thought Process: Hallucinations (DENIED), Other (concrete thought process ) - Suicidal Ideation Suicidal Ideation: No - Homicidal Ideation Homicidal Ideation: No Goal/Treatment Plan - Goal/Treatment Plan Need for Continued Stay: Remain at risks for inpatient hospitalization, Severe depression anxiety, Discharge may exacerbated symptoms, Failed transitioning, Severe functional impairment Progress Toward Problem(s) and Goals/Treatment Plan: Milieu/structure/supportive therapy Medical consult was called SW consultation for discharge plan and social issues LORazepam [Ativan] 1 mg PO TID for catatonia risperiDONE [RisperDAL Tab] 2mg PO DAILY for psychosis Risperidone [Risperdal] 3 mg PO HS for psychosis traZODone [Desyrel] 100 mg PO HS for insomnia and depression Cogentin 1 mg a.m. and at bedtime pt is willing to resume meds PRN meds Family involvement Follow up on labs Will monitor closely Pt was educated about risk/benefits and alternatives of medications, coping strategies (safety plan, suicide prevention), relapse prevention, importance of follow up with psychiatrist and therapist, stay away from drugs/alcohol/smoking Estimated Date of D/C: 05/03/18
[2018-05-03 07:20] VITALS: BP 112/71; PULSE 80; TEMP 97.6
--- NOTE | 2018-05-03 16:33 | PCM.PYCHDC ---
Mental Status Examination - Mental Status Examination Orientation: Person, Place, Situation, Time Memory: Impaired (cchronic) Mood: Neutral Affect: Constricted (but reactive and mood congruent) Attention: Poor (chronic) Concentration: Poor (chronic) Association: Loose (baseline) Fund of Knowledge: Poor (baseline) Formal Thought Process: Other (disorganized thoughts baseline) Description of patient's judgement and insight: Pt has improved insight into mental and medical illness, pt was compliant with medications and unit rules and regulations, pt was going to groups, was calm, cooperative, socially appropriate, no behavioral incidents, no agitation, no aggression. Psychotic Thoughts and Behaviors: Pt denied v/a/t hallucinations, denied paranoid ideations, pt does not appear to be psychotic, and thought process is goal directed. Suicidal Ideation: No Current Homicidal Ideation?: No Plan: pt adamantly denied thoughts of harming self or others denied intent or plan. Discharge Summary - Discharge Note Reason for Hospitalization: pt was admitted to psychiatric inpatient unit for evaluation of disorganized behavior, bizarre presentation. Psychiatric History (includes Medical, Family, Personal Hx): see HPI Laboratory Data: 04/20/18 19:07 04/20/18 19:07 Lab Results 04/20/18 19:34: Urine Opiates Screen Negative, Urine Methadone Screen Negative, Ur Barbiturates Screen Negative, Ur Phencyclidine Scrn Negative, Ur Amphetamines Screen Negative, U Benzodiazepines Scrn Negative, U Oth Cocaine Metabols Negative, U Cannabinoids Screen Negative 04/20/18 19:34: Urine Color Light yellow, Urine Appearance Clear, Urine pH 7.0, Ur Specific [place] 1.015, Urine Protein Negative, Urine Glucose (UA) Negative, Urine Ketones Trace H, Urine Blood Negative, Urine Nitrate Negative, Urine Bilirubin Negative, Urine Urobilinogen 1.0 H, Ur Leukocyte Esterase Negative 04/20/18 19:07: WBC 8.8 D, RBC 4.82, Hgb 14.4, Hct 42.0, MCV 87.1, MCH 29.9, MCHC 34.3, RDW 12.9, Plt Count 243, MPV 10.8, Gran % 59.2, Lymph % (Auto) 29.6, [place] % (Auto) 9.9 H, Eos % (Auto) 0.7 L, Baso % (Auto) 0.6, Gran # 5.18, Lymph # (Auto) 2.6, [place] # (Auto) 0.9 H, Eos # (Auto) 0.1, Baso # (Auto) 0.05 04/20/18 19:07: Alcohol, Quantitative < 10 04/20/18 19:07: Salicylates < 1 L, Acetaminophen < 10.0 L 04/20/18 19:07: Sodium 141, Potassium 3.8, Chloride 101, Carbon Dioxide 26, Anion Gap 18, BUN 15, Creatinine 1.2, Est GFR ( Amer) > 60, Est GFR (Non- Af Amer) > 60, Random Glucose 106, Calcium 9.2, Total Bilirubin 0.6, AST 17 D, ALT 23, Alkaline Phosphatase 61, Total Creatine Kinase 89, Total Protein 8.1, Albumin 4.6, Globulin 3.5, Albumin/Globulin Ratio 1.3 Vital Signs Temp Pulse Resp BP Pulse Ox 05/03/18 07:19 97.6 F 80 20 112/71 05/02/18 16:00 92 H 115/70 05/02/18 07:18 97.9 F 98 H 20 115/60 05/01/18 15:41 99 H 126/84 05/01/18 07:17 97.7 F 77 20 116/80 04/30/18 16:00 67 119/61 04/30/18 07:07 97.8 F 70 20 110/64 04/29/18 16:50 75 20 124/84 04/29/18 07:15 98.3 F 104 H 20 119/83 04/28/18 15:05 100 H 130/79 04/28/18 07:19 97.9 F 65 20 157/69 H 04/27/18 16:22 99 H 19 124/74 04/27/18 07:15 97.7 F 81 20 117/71 04/26/18 16:05 85 117/81 04/26/18 07:21 98.2 F 72 20 125/83 04/25/18 16:00 90 135/82 04/25/18 07:00 97.6 F 81 18 111/80 04/24/18 16:00 68 102/57 L 04/24/18 07:18 97.9 F 68 20 99/56 L 04/23/18 21:50 88 118/86 04/23/18 07:40 98.4 F 71 20 106/63 04/22/18 15:00 85 114/80 04/22/18 07:20 97.8 F 91 H 20 127/84 04/21/18 16:00 87 136/87 04/21/18 07:18 99.5 F 92 H 20 126/81 04/21/18 02:09 97.8 F 100 H 20 127/97 H 04/21/18 01:40 20 04/21/18 01:22 98 04/20/18 21:27 97.6 F 98 H 20 141/78 96 04/20/18 17:37 98.9 F 103 H 18 133/96 H 99 Consultations:: List each consultation separately and include: 1. Reason for request. 2. Findings. 3. Follow-up Consultations: patient is relatively healthy, was seen by medical team and the emergency room Summary of Hospital Course include:: 1. Description of specific treatment plan utilized for patients during their course of treatmen. 2. Summarize the time- course for resolution of acute symptoms and/or regressed behaviors. 3. Describe issues identified and worked on during hospitalization. 4. Describe medication utilized. 5. Describe medical problems identified and treated. 6. Reassessment of suicide risk Summary of Hospital Course: Shortly pt is a 23 yo single male with history of mood and psychotic symptoms, most likely schizophrenia spectrum disorder, multiple psychiatric admissions in the past, pt was d/c from [facility] at the beginning of this week 04/17/18, on the next day pt came to ED 04/18/18, was discharged, pt has h/o of cannabis use, homelessness, pt has h/o of being found wandering in traffic, chasing cars down , this telegraphic typewriter installer is very familiar with this pt from the previous admission. psychiatrist mobile application developer recommended admission for that pt, pt required further evaluation, stabilization, meds resumption and titration. initially pt was seen at the treatment team meeting, pt had difficulties to express himself, pt was able to give one word answer, said that he did not take his medications "because I was afraid", pt said "everything is hurting, as usual ". pt still has no information about his family, nobody is available. pt has neurocognitive deficit, concrete thought process. acceptable personal hygiene, fair ADLs. pt denied feeling hopeless/helpless denied psychotic symptoms, but obviously disorganized and giggling inappropriately "I do not hear voices now but I was hearing voices before". as per previous record tp had h/o walking into the traffic, was jumping up and down in ED, h/o trying to elope. pt denied using drugs, denied smoking denied drinking alcohol. pat has h/o cannabis positive in urine last admission. as per h/o, pt was treated with depakote and risperdal. PSYCHIATRIC HISTORY/ Patient reports one prior recent admission at [facility] x 7 days and that he was just discharged, two admissions to [facility] 04/06/18, and 2016, Denies history of suicide attempts or outpatient treatment. SOCIAL HISTORY (as per previous admission) Born in [place], [place]. Raised partly in [place] and partly in [place]. He is single and has no children. Patient resides with his mother. Graduated high school. h/o Works at [employer] located in [place] on [address] [place] [address]. Denies any arrests. 04/20/18 19:07 04/20/18 19:07 Lab Results 04/20/18 19:34: Urine Opiates Screen Negative, Urine Methadone Screen Negative, Ur Barbiturates Screen Negative, Ur Phencyclidine Scrn Negative, Ur Amphetamines Screen Negative, U Benzodiazepines Scrn Negative, U Oth Cocaine Metabols Negative, U Cannabinoids Screen Negative 04/20/18 19:34: Urine Color Light yellow, Urine Appearance Clear, Urine pH 7.0, Ur Specific [place] 1.015, Urine Protein Negative, Urine Glucose (UA) Negative, Urine Ketones Trace H, Urine Blood Negative, Urine Nitrate Negative, Urine Bilirubin Negative, Urine Urobilinogen 1.0 H, Ur Leukocyte Esterase Negative 04/20/18 19:07: WBC 8.8 D, RBC 4.82, Hgb 14.4, Hct 42.0, MCV 87.1, MCH 29.9, MCHC 34.3, RDW 12.9, Plt Count 243, MPV 10.8, Gran % 59.2, Lymph % (Auto) 29.6, [place] % (Auto) 9.9 H, Eos % (Auto) 0.7 L, Baso % (Auto) 0.6, Gran # 5.18, Lymph # (Auto) 2.6, [place] # (Auto) 0.9 H, Eos # (Auto) 0.1, Baso # (Auto) 0.05 04/20/18 19:07: Alcohol, Quantitative < 10 04/20/18 19:07: Salicylates < 1 L, Acetaminophen < 10.0 L 04/20/18 19:07: Sodium 141, Potassium 3.8, Chloride 101, Carbon Dioxide 26, Anion Gap 18, BUN 15, Creatinine 1.2, Est GFR ( Amer) > 60, Est GFR (Non- Af Amer) > 60, Random Glucose 106, Calcium 9.2, Total Bilirubin 0.6, AST 17 D, ALT 23, Alkaline Phosphatase 61, Total Creatine Kinase 89, Total Protein 8.1, Albumin 4.6, Globulin 3.5, Albumin/Globulin Ratio 1.3 Vital Signs Temp Pulse Resp BP Pulse Ox 04/21/18 07:18 99.5 F 92 H 20 126/81 04/21/18 02:09 97.8 F 100 H 20 127/97 H 04/21/18 01:40 20 04/21/18 01:22 98 04/20/18 21:27 97.6 F 98 H 20 141/78 96 04/20/18 17:37 98.9 F 103 H 18 133/96 H 99 pt was doing well on the following meds: LORazepam [Ativan] 1 mg PO BID risperiDONE [RisperDAL Tab] 1 mg PO DAILY Risperidone [Risperdal] 2 mg PO HS traZODone [Desyrel] 50 mg PO HS pt was willing to resume meds patient was stabilized on the following medications: LORazepam [Ativan] 1 mg PO TID for catatonia risperiDONE [RisperDAL Tab] 2mg PO DAILY for psychosis Risperidone [Risperdal] 3 mg PO HS for psychosis traZODone [Desyrel] 100 mg PO HS for insomnia and depression Cogentin 1 mg a.m. and at bedtime tolerated medications well, no side effects observed or reported, aims 0, no EPS. Over the course of this hospitalization pt was attending groups, pt also had medication management, had therapeutic milieu. Overall pt improved significantly, pt's affect became brighter, pt was less depressed, has realistic future oriented plans, pt still has residual psychotic symptoms, denied being anxious, pt was socially appropriate, no behavioral issues, pts insight improved as well and soon pt deemed to be ready for discharge. At the time of the discharge pt denied been depressed, denied thoughts of harming self or others, denied psychotic symptoms, and pt does not appeared to be psychotic, denied been anxious, pt is not in imminent danger to self or others, will be following up at [facility] today at 9am, information about follow up appointment, time and address provided to the pt, it is patient responsibility to follow up with outpatient clinic, PMD as well as specialists ( see SW note for more detailed information). In case pt will need to obtain results of studies pending at discharge pt was provided with contact information of Psychiatric Inpatient unit [phone] as well as Medical Record Department [phone]. ppatient denied using drugs, denied smoking pt was provided with prescriptions for all of medications (please see medication reconciliation form) Pt was educated about safety plan in case of worsening of symptoms or in case of suicidal or homicidal ideation call 911 or go to the nearest ER, also was educated to take meds as prescribed and stay away from drugs, pt verbalized understanding. - Diagnosis (1) Schizophrenia Status: Chronic Priority: High - Final Diagnosis (DSM 5) Condition upon Discharge: GOOD Disposition: HOME/ ROUTINE Follow-up Treatment Plan: At the time of the discharge pt denied been depressed, denied thoughts of harming self or others, denied psychotic symptoms, and pt does not appeared to be psychotic, denied been anxious, pt is not in imminent danger to self or others, will be following up at [facility] today at 9am, information about follow up appointment, time and address provided to the pt, it is patient responsibility to follow up with outpatient clinic, PMD as well as specialists ( see SW note for more detailed information). In case pt will need to obtain results of studies pending at discharge pt was provided with contact information of Psychiatric Inpatient unit [phone] as well as Medical Record Department [phone]. ppatient denied using drugs, denied smoking pt was provided with prescriptions for all of medications (please see medication reconciliation form) Pt was educated about safety plan in case of worsening of symptoms or in case of suicidal or homicidal ideation call 911 or go to the nearest ER, also was educated to take meds as prescribed and stay away from drugs, pt verbalized understanding. Prescriptions/Medication Reconciliation: Benztropine [Cogentin] 1 mg PO AMHS #30 tab LORazepam [Ativan] 1 mg PO BID #30 tab risperiDONE [RisperDAL Tab] 2 mg PO DAILY #14 tab risperiDONE [RisperDAL Tab] 3 mg PO HS #14 tab traZODone [Desyrel] 50 mg PO HS #14 tab - Smoking Cessation Smoking Cessation Medication prescribed: No Reason for not providing: ddenied smoking - Antipsychotic Medications Pt discharged on 2 or more routine antipsychotic medications: No
== END 2018-05-03 10:45 | disposition home or self-care (01) | DRG 430 ==
LOC: ED 17:25 → ERH 04-21 00:33 → OBSVTOIN 04-21 00:33 → PSYC 04-21 01:09
PROVIDERS: ADMIT Psychiatry & Neurology Psychiatry; ATTEND Psychiatry & Neurology Psychiatry
DX: F20.2 Catatonic schizophrenia (principal); F32.89 Other specified depressive episodes; G47.00 Insomnia, unspecified; F12.10 Cannabis abuse, uncomplicated; R47.01 Aphasia; Z59.0 Homelessness

== ENCOUNTER 2018-05-26 18:18 | Emergency (ER) | payer MEDICAID ==
[2018-05-26 18:18] VITALS: BMI 24.3
--- NOTE | 2018-05-26 18:46 | ED PDOC ---
Arrival/HPI <Karl Segundo - Last Filed: 05/26/18 21:00> - General Historian: Patient - History of Present Illness Narrative History of Present Illness (Text): 05/26/18 18:41 23 y/o male, psychiatric history including schizophrenia, nkda, biba and found by the police on the ground in a public building. Pt. was found sleeping on the ground, admits homeless, refused to talk much except smiling, provides no medical or psychological complaints. Police found the patient, wants the patient to have medical evaluation. Pt. has no chest pain or palpitation, no rash, no night sweat, no dizziness, no change in vision, no other medical or psychological complaints. <Abelardo Martinez - Last Filed: 05/26/18 21:56> - General Chief Complaint: Psychiatric Evaluation Time Seen by Provider: 05/26/18 18:41 Past Medical History - Provider Review Nursing Documentation Reviewed: Yes - Infectious Disease Hx of Infectious Diseases: None - Tetanus Immunization Tetanus Immunization: Unknown - Cardiac Hx Cardiac Disorders: No - Pulmonary Hx Respiratory Disorders: No - Neurological Hx Neurological Disorder: No - HEENT Hx HEENT Disorder: No - Renal Hx Renal Disorder: No - Endocrine/Metabolic Hx Endocrine Disorders: No - Hematological/Oncological Hx Blood Disorders: No - Integumentary Hx Dermatological Disorder: No - Musculoskeletal/Rheumatological Hx Musculoskeletal Disorders: No - Gastrointestinal Hx Gastrointestinal Disorders: No - Genitourinary/Gynecological Hx Genitourinary Disorders: No - Psychiatric Hx Psychophysiologic Disorder: Yes Hx Schizophrenia: Yes Hx Substance Use: Yes - Anesthesia Hx Anesthesia: No <Abelardo Martinez - Last Filed: 05/26/18 21:56> Family/Social History - Physician Review Nursing Documentation Reviewed: Yes Family/Social History: Unknown Family HX Smoking Status: Heavy Smoker > 10 Cigarettes Daily Hx Alcohol Use: No Hx Substance Use: Yes Substance used: marijuana <Abelardo Martinez - Last Filed: 05/26/18 21:56> Allergies/Home Meds <Karl Segundo - Last Filed: 05/26/18 21:00> <Abelardo Martinez - Last Filed: 05/26/18 21:56> Allergies/Adverse Reactions: Allergies Unobtainable Allergy (Verified 05/26/18 18:26) Review of Systems - Review of Systems Constitutional: absent: Fatigue, Fevers Eyes: absent: Vision Changes ENT: absent: Hearing Changes Respiratory: absent: SOB, Cough Cardiovascular: absent: Chest Pain Gastrointestinal: absent: Abdominal Pain, Nausea, Vomiting Musculoskeletal: absent: Arthralgias, Back Pain Skin: absent: Rash, Pruritis Neurological: absent: Headache, Dizziness Psychiatric: absent: Anxiety, Depression, Suicidal Ideation <Abelardo Martinez - Last Filed: 05/26/18 21:56> Physical Exam Vital Signs Temp Pulse Resp BP Pulse Ox 05/26/18 18:25 97.8 F 80 18 124/78 100 <TolericoKarl - Last Filed: 05/26/18 21:00> - Systems Exam Head: Present: Atraumatic, Normocephalic. No: Tenderness, Contusion, Swelling, Ecchymosis, Abrasion, Laceration, Other Pupils: Present: PERRL Extroacular Muscles: Present: EOMI Conjunctiva: Present: Normal Ears: Present: NORMAL TM, Normal Canal. No: Erythema Mouth: Present: Moist Mucous Membranes Nose (Internal): Present: Normal Inspection, No Active Bleeding. No: Rhinorrhea, Septal Hematoma, Epistaxis Neck: Present: Normal Range of Motion, Trachea Midline. No: Meningeal Signs, MIDLINE TENDERNESS, Paraspinal Tenderness, Lymphadenopathy Respiratory/Chest: Present: Clear to Auscultation, Good Air Exchange. No: Respiratory Distress, Accessory Muscle Use Cardiovascular: Present: Regular Rate and Rhythm, Normal S1, S2. No: Murmurs Abdomen: No: Tenderness, Distention, Peritoneal Signs, Rebound, Guarding Back: Present: Normal Inspection Upper Extremity: Present: Normal Inspection, Normal ROM, NORMAL PULSES, Neurovascularly Intact. No: Cyanosis, Edema, Tenderness, Swelling, Deformity Lower Extremity: Present: Normal Inspection, NORMAL PULSES, Normal ROM, Neurovascularly Intact, Capillary Refill < 2 s. No: Edema, Tenderness, Swelling, Deformity Neurological: Present: GCS=15, CN II-XII Intact, Speech Normal, Motor Func Grossly Intact, Gait Normal, Memory Normal Skin: Present: Warm, Dry, Normal Color. No: Rashes Psychiatric: Present: Alert, Oriented x 3, Normal Insight, Normal Concentration <Abelardo Martinez - Last Filed: 05/26/18 21:56> Medical Decision Making - Lab Interpretations Lab Results: Lab Results 05/26/18 18:50: Urine Opiates Screen Negative, Urine Methadone Screen Negative, Ur Barbiturates Screen Negative, Ur Phencyclidine Scrn Negative, Ur Amphetamines Screen Negative, U Benzodiazepines Scrn Negative, U Oth Cocaine Metabols Negative, U Cannabinoids Screen Positive H - RAD Interpretation Radiology Orders: 05/26/18 18:46 HEAD W/O CONTRAST [CT] Stat <Karl Segundo - Last Filed: 05/26/18 21:00> ED Course and Treatment: 05/26/18 18:51 -Labs/UDS -CT head -Will monitor in the ER 05/26/18 21:34 -Labs are nonsignificant -CT head show Impression: no acute intracranial abnormality. -Pt. has no medical complaints, all labs and radiology results explained to him, request to be discharged. Pt. has no homocidal or suicial ideation, no auditory or visual hallucination. -Discharge home with education on follow up with your own pmd within 2 days, return to the ER for any new or worsening signs or symptoms. - Lab Interpretations I have reviewed the lab results: Yes - RAD Interpretation Radiology Orders: Brain: no acute intraparenchymal hemorrhage. NO mass lesion, no ct evidence for acute territorial infarct. no midline shift or extra axial collections. Ventricles: no hydrocephalus Orbits: the orbits are unremarkable Sinuses and mastoids: the paranasal sinuses and mastoid air cells are clear Bones: no fracture. Impression: no acute intracranial abnormality. Linoleum Floor Layer: Radiologist <Abelardo Martinez - Last Filed: 05/26/18 21:56> - PA / RETAIL ADMINISTRATIVE ASSISTANT / Resident Statement [facility] has reviewed & agrees with the documentation as recorded. <Karl Segundo - Last Filed: 05/26/18 21:00> - PA / RETAIL ADMINISTRATIVE ASSISTANT / Resident Statement [facility] has reviewed & agrees with the documentation as recorded. <Abelardo Martinez - Last Filed: 05/26/18 21:56> Disposition/Present on Arrival <Karl Segundo - Last Filed: 05/26/18 21:00> - Present on Arrival Any Indicators Present on Arrival: No History of DVT/PE: No History of Uncontrolled Diabetes: No Urinary Catheter: No History of Decub. Ulcer: No History Surgical Site Infection Following: None - Disposition Have Diagnosis and Disposition been Completed?: Yes Disposition Time: 21:56 Patient Plan: Discharge <Abelardo Martinez - Last Filed: 05/26/18 21:56> - Disposition Diagnosis: General medical examination Disposition: HOME/ ROUTINE Condition: GOOD Additional Instructions: -Discharge home with education on follow up with your own pmd within 2 days, return to the ER for any new or worsening signs or symptoms. Referrals: PCP,NO [Primary Care Provider] - Follow up with primary [facility] [place] [Outside] - Follow up with primary Forms: [employer] (Hungarian)
[2018-05-26 19:27] VITALS: O2SAT 100
[2018-05-26 19:38] LABS: BARBITURATES, UR NEGATIVE (NEGATIVE); BENZODIAZEPINES, UR NEGATIVE (NEGATIVE); OPIATES, UR NEGATIVE (NEGATIVE); PHENCYCLIDINE, UR NEGATIVE (NEGATIVE)
[2018-05-26 21:01] LABS: BASO # 0.02 K/mm3 (0.0-2.0); BASO % 0.2 % (0.0-3.0); EOS # 0.1 (0.0-0.7); EOS % 0.5 % (1.5-5.0); GRAN # 7.17 (1.4-6.5); GRAN % 71.2 % (50.0-68.0); HEMOGLOBIN 15.3 g/dL (14.0-18.0); LYMPH % 20.2 % (22.0-35.0); MEAN CELL VOLUME 87.3 fl (80.0-105.0); MEAN CORPUSCULAR HEMOGLOBIN 29.5 pg (25.0-35.0); MEAN CORPUSCULAR HGB CONC 33.8 g/dl (31.0-37.0); MEAN PLATELET VOLUME 11.5 fl (7.0-11.0); MONO # 0.8 (0.1-0.6); MONO % 7.9 % (1.0-6.0); RBC 5.18 10^6/uL (3.5-6.1); RED CELL DISTRIBUTION WIDTH 12.9 % (11.5-14.5); WHITE BLOOD COUNT 10.1 10^3/ul (4.5-11.0)
[2018-05-26 21:11] LABS: ALB/GLOB RATIO 1.5 (1.1-1.8); ALBUMIN 4.9 g/dL (3.0-4.8); ALT/SGPT 10 U/L (7-56); AST/SGOT 18 U/L (17-59); BLOOD UREA NITROGEN 17 mg/dL (7-21); CALCIUM 9.4 mg/dL (8.4-10.5); GFR NON-AFRICAN AMERICAN > 60
[2018-05-26 21:12] LABS: ACETAMINOPHEN < 10.0 ug/ml (10.0-20.0); SALICYLATE < 1 mg/dL (2.0-20.0)
[2018-05-26 23:17] VITALS: BP 119/72; PULSE 67; RESP 16; TEMP 98
--- NOTE | 2018-05-27 09:28 | CARD ---
APPROVED REPORT Date of service: 05/26/2018 EKG Measurement Heart [id number] <Conclusion> Sinus tachycardia LVH by voltage No change
--- NOTE | 2018-05-27 13:07 | CT ---
Date of service: 05/26/2018 PROCEDURE: CT HEAD WITHOUT CONTRAST. HISTORY: fall? COMPARISON: None available. TECHNIQUE: Axial computed tomography images were obtained through the head/brain without intravenous contrast. Supplemental Coronal and Sagittal projectections created and reviewed. Radiation dose: Total exam DLP = 1314.85 mGy-cm. This CT exam was performed using one or more of the following dose reduction techniques: Automated exposure control, adjustment of the mA and/or kV according to patient size, and/or use of iterative reconstruction technique. FINDINGS: HEMORRHAGE: No intracranial hemorrhage. BRAIN: No mass effect or edema. No atrophy or chronic microvascular ischemic changes. VENTRICLES: Unremarkable. No hydrocephalus. CALVARIUM: Unremarkable. PARANASAL SINUSES: Unremarkable as visualized. No significant inflammatory changes. MASTOID AIR CELLS: Unremarkable as visualized. No inflammatory changes. OTHER FINDINGS: None. IMPRESSION: No acute intracranial abnormalities. No significant findings to account for the clinical presentation. Concordant results (preliminary interpretation) provided by FAGUO. Procedure Completed: 21:21 Preliminary Report: Dictated and Authenticated: 21:44 Final Interpretation: 13:05. May 27, 2018.
== END 2018-05-26 22:15 | disposition home or self-care (01) ==
LOC: ED 18:18
DX: Z00.8 Encounter for other general examination (principal); F20.9 Schizophrenia, unspecified
CPT/HCPCS: 70450; 80053; 83735; 85025; 93005; 99284; G0480

== ENCOUNTER 2018-06-16 10:08 | Emergency (ER) | payer OTHER ==
--- NOTE | 2018-06-16 10:30 | ED PDOC ---
Arrival/HPI - General Time Seen by Provider: 06/16/18 10:17 Historian: Patient - History of Present Illness Narrative History of Present Illness (Text): 06/16/18 10:26 23 year old male, whose past medical history includes schizophrenia and substance abuse, presents to the Emergency department with back pain, status post injury 1 year prior. Patient states he has been having intermittent sharp back pain ever since an injury. Back pain located right upper back and right lower back. Patient does inform being on medication, but does not know what it is. Patient also informs not taking the medication as instructed. Patient denies any abdominal pain, neck pain, or any other complaint. PMD: No PMD Time/Duration: Prior to Arrival, Other (Injury 1 year prior) Past Medical History - Provider Review Nursing Documentation Reviewed: Yes - Infectious Disease Hx of Infectious Diseases: None - Tetanus Immunization Tetanus Immunization: Unknown - Cardiac Hx Cardiac Disorders: No - Pulmonary Hx Respiratory Disorders: No - Neurological Hx Neurological Disorder: No - HEENT Hx HEENT Disorder: No - Renal Hx Renal Disorder: No - Endocrine/Metabolic Hx Endocrine Disorders: No - Hematological/Oncological Hx Blood Disorders: No - Integumentary Hx Dermatological Disorder: No - Musculoskeletal/Rheumatological Hx Musculoskeletal Disorders: No - Gastrointestinal Hx Gastrointestinal Disorders: No - Genitourinary/Gynecological Hx Genitourinary Disorders: No - Psychiatric Hx Psychophysiologic Disorder: Yes Hx Schizophrenia: Yes Hx Substance Use: Yes - Anesthesia Hx Anesthesia: No Family/Social History - Physician Review Nursing Documentation Reviewed: Yes Family/Social History: No Known Family HX Smoking Status: Heavy Smoker > 10 Cigarettes Daily Hx Alcohol Use: No Hx Substance Use: Yes Substance used: marijuana Allergies/Home Meds Allergies/Adverse Reactions: Allergies No Known Allergies Allergy (Verified 06/16/18 10:21) Review of Systems - Physician Review All systems were reviewed & negative as marked: Yes - Review of Systems Gastrointestinal: absent: Abdominal Pain Musculoskeletal: Back Pain (upper back pain; right sided lower back pain). absent: Neck Pain Physical Exam Vital Signs Reviewed: Yes Vital Signs Temp Pulse Resp BP Pulse Ox 06/16/18 10:22 97.8 F 62 18 143/70 100 Temperature: Afebrile Blood Pressure: Normal Pulse: Regular Respiratory Rate: Normal Appearance: Positive for: Well-Appearing, Non-Toxic, Comfortable Pain Distress: None Mental Status: Positive for: Alert and Oriented X 3 - Systems Exam Back: Present: Normal Inspection, Other (tenderness to right trapezius;tenderness to upper back; tenderness to right lower lumbar). No: M idline Tenderness, Pain with Leg Raise Medical Decision Making ED Course and Treatment: 06/16/18 10:27 Impression: 23 year old male presents with back pain that is musculoskeletal in nature Plan: -- Ibuprofen -- Make sure to do some stretches as instructed and f/u with the clinic as needed. Prior Visits: Notes and results from previous visits were reviewed. Patient was last seen in the emergency department on 05/26/18 brought by police for evaluation after being found sleeping on building floor. Patient was examined, had no medical or psychiatric complaints, and discharged to follow up with D or [facility]. - Scribe Statement The provider has reviewed the documentation as recorded by the Lauren Diaz Provider Scribe Attestation: All medical record entries made by the Scribe were at my direction and personally dictated by me. I have reviewed the chart and agree that the record accurately reflects my personal performance of the history, physical exam, medical decision making, and the department course for this patient. I have also personally directed, reviewed, and agree with the discharge instructions and disposition. Disposition/Present on Arrival - Present on Arrival Any Indicators Present on Arrival: No History of DVT/PE: No History of Uncontrolled Diabetes: No Urinary Catheter: No History Surgical Site Infection Following: None - Disposition Have Diagnosis and Disposition been Completed?: Yes Diagnosis: Back strain Disposition: HOME/ ROUTINE Disposition Time: 10:27 Patient Plan: Discharge Condition: GOOD Discharge Instructions (ExitCare): Muscle Strain Additional Instructions: LUANN NAPIER, thank you for letting us take care of you today. Your provider was Bijan Stephenson DO and you were treated for BACK PAIN. The emergency medical care you received today was directed at your acute symptoms. If you were prescribed any medication, please fill it and take as directed. It may take several days for your symptoms to resolve. Return to the Emergency Department if your symptoms worsen, do not improve, or if you have any other problems. Please contact your doctor or call one of the physicians/clinics you have been referred to that are listed on the Patient Visit Information form that is included in your discharge packet. Bring any paperwork you were given at discharge with you along with any medications you are taking to your follow up visit. Our treatment cannot replace ongoing medical care by a primary care provider outside of the emergency department. Thank you for allowing the [employer] team to be part of your care today. If you had an X-Ray or CT scan: A Radiologist will review the ED reading if any change in treatment is needed we will contact you. If you had a blood, urine, or wound culture: It will take several days for the results, if any change in treatment is needed we will contact you. If you had an STI test: It will take 48 hours for the results. Please call after 1 week if you have not heard back. Prescriptions: Ibuprofen [Motrin] 600 mg PO Q6 PRN #30 tab PRN Reason: Pain, Moderate (4-7) Referrals: [facility] [Outside] - Follow up with primary Gloria Gilliam MD [Medical Doctor] - Follow up with primary Forms: WORK NOTE
[2018-06-16 10:35] VITALS: BP 143/70; PULSE 62; RESP 18; TEMP 97.8; O2SAT 100; BMI 24.4
== END 2018-06-16 10:35 | disposition home or self-care (01) ==
LOC: ED 10:08
DX: S29.012A Strain of muscle and tendon of back wall of thorax, initial encounter (principal); S39.012A Strain of muscle, fascia and tendon of lower back, initial encounter; X58.XXXA Exposure to other specified factors, initial encounter; F17.210 Nicotine dependence, cigarettes, uncomplicated; F20.9 Schizophrenia, unspecified

== ENCOUNTER 2018-06-19 08:24 | Emergency (ER) | payer OTHER ==
[2018-06-19 08:24] VITALS: BMI 24.4
[2018-06-19 09:13] VITALS: RESP 18
--- NOTE | 2018-06-19 10:12 | ED PDOC ---
Addendum entered and electronically signed by Quintin HERNANDEZ,Loan Ko PA-C 06/21/18 16:41: Addendum Addendum: 06/21/18 16:40 Urine cx : +enterococcus faecalis sensitive to macrobid. Pt called, unable to leave message, needs 2nd call back. Original Note: Arrival/HPI - General Chief Complaint: Abdominal Pain Time Seen by Provider: 06/19/18 09:11 Historian: Patient - History of Present Illness Narrative History of Present Illness (Text): 06/19/18 10:09 23yo male with history of substance abuse, Schizophrenia who present with complaint of nausea and vomiting x 2days. States his last nonbloody/nonbillious vomiting was this morning. He however denies abdominal pain, although he admitted to abdominal pain during triage. He denies diarrhea, constipation, fever, chills, urinary symptoms, sick contact, travel, any other complaint. Past Medical History - Provider Review Nursing Documentation Reviewed: Yes - Infectious Disease Hx of Infectious Diseases: None - Tetanus Immunization Tetanus Immunization: Unknown - Cardiac Hx Cardiac Disorders: No - Pulmonary Hx Respiratory Disorders: No - Neurological Hx Neurological Disorder: No - HEENT Hx HEENT Disorder: No - Renal Hx Renal Disorder: No - Endocrine/Metabolic Hx Endocrine Disorders: No - Hematological/Oncological Hx Blood Disorders: No - Integumentary Hx Dermatological Disorder: No - Musculoskeletal/Rheumatological Hx Musculoskeletal Disorders: No - Gastrointestinal Hx Gastrointestinal Disorders: No - Genitourinary/Gynecological Hx Genitourinary Disorders: No - Psychiatric Hx Psychophysiologic Disorder: Yes Hx Schizophrenia: Yes Hx Substance Use: Yes - Anesthesia Hx Anesthesia: No Hx Anesthesia Reactions: No Hx Malignant Hyperthermia: No Family/Social History - Physician Review Nursing Documentation Reviewed: Yes Family/Social History: Unknown Family HX Smoking Status: Heavy Smoker > 10 Cigarettes Daily Hx Alcohol Use: No Hx Substance Use: Yes Substance used: marijuana Allergies/Home Meds Allergies/Adverse Reactions: Allergies No Known Allergies Allergy (Verified 06/16/18 10:21) Review of Systems - Physician Review All systems were reviewed & negative as marked: Yes - Review of Systems Constitutional: Normal Eyes: Normal ENT: Normal Respiratory: Normal Cardiovascular: Normal Gastrointestinal: Nausea, Vomiting. absent: Abdominal Pain, Constipation, Diarrhea, Hematochezia, Hematemesis Genitourinary Male: Normal Musculoskeletal: Normal Skin: Normal Neurological: Normal Endocrine: Normal Hemo/Lymphatic: Normal Psychiatric: Normal Physical Exam Vital Signs Reviewed: Yes Vital Signs Temp Pulse Resp BP Pulse Ox 06/19/18 09:13 98.0 F 78 18 129/89 98 Temperature: Afebrile Blood Pressure: Normal Pulse: Regular Respiratory Rate: Normal Appearance: Positive for: Well-Appearing, Non-Toxic, Comfortable Pain Distress: None Mental Status: Positive for: Alert and Oriented X 3 - Systems Exam Head: Present: Atraumatic, Normocephalic Pupils: Present: PERRL Extroacular Muscles: Present: EOMI Conjunctiva: Present: Normal Mouth: Present: Moist Mucous Membranes Neck: Present: Normal Range of Motion Respiratory/Chest: Present: Clear to Auscultation, Good Air Exchange. No: Respiratory Distress, Accessory Muscle Use Cardiovascular: Present: Regular Rate and Rhythm, Normal S1, S2. No: Murmurs Abdomen: Present: Normal Bowel Sounds, Other (Soft). No: Tenderness, Distention, Peritoneal Signs, Rebound, Guarding, McBurney's Point Tender, Rovsing's Sign Present Back: Present: Normal Inspection Upper Extremity: Present: Normal Inspection. No: Cyanosis, Edema Lower Extremity: Present: Normal Inspection. No: Edema Neurological: Present: GCS=15, CN II-XII Intact, Speech Normal Skin: Present: Warm, Dry, Normal Color. No: Rashes Psychiatric: Present: Alert, Oriented x 3, Normal Insight, Normal Concentration Medical Decision Making ED Course and Treatment: 06/19/18 19:18 Pt in ED for stated history. He was not in any distress. Lab was ordered and he hydrated and treated with Zofran His lab was unremarkable and he tolerate PO in ED Lab was DW the pt and he Dc hoem with pepcid and zofran. Referred to the clinic/PMD - Medication Orders Current Medication Orders: Discontinued Medications Ondansetron HCl (Zofran Inj) 4 mg IVP STAT STA Stop: 06/19/18 09:36 Disposition/Present on Arrival - Present on Arrival Any Indicators Present on Arrival: No History of DVT/PE: No History of Uncontrolled Diabetes: No Urinary Catheter: No History of Decub. Ulcer: No History Surgical Site Infection Following: None - Disposition Have Diagnosis and Disposition been Completed?: Yes Diagnosis: Vomiting and diarrhea Disposition: HOME/ ROUTINE Disposition Time: 12:20 Patient Plan: Discharge Condition: STABLE Discharge Instructions (ExitCare): Nausea and Vomiting, Adult Additional Instructions: Follow BRAT diet and follow up with your Doctor Return to ED for any new symptoms Prescriptions: Famotidine [Pepcid] 40 mg PO DAILY #10 tab Ondansetron ODT [Zofran ODT] 4 mg PO Q6 #6 odt Referrals: Gloria Gilliam MD [Medical Doctor] - Follow up with primary Forms: [employer] (Romansh)
[2018-06-19 11:02] LABS: BASO # 0.04 K/mm3 (0.0-2.0); BASO % 0.6 % (0.0-3.0); EOS # 0.1 (0.0-0.7); GRAN # 3.96 (1.4-6.5); GRAN % 59.2 % (50.0-68.0); HEMOGLOBIN 15.3 g/dL (14.0-18.0); LYMPH # 2.2 (1.2-3.4); LYMPH % 32.9 % (22.0-35.0); MEAN CELL VOLUME 84.9 fl (80.0-105.0); MEAN CORPUSCULAR HEMOGLOBIN 29.7 pg (25.0-35.0); MEAN PLATELET VOLUME 11.8 fl (7.0-11.0); MONO # 0.4 (0.1-0.6); MONO % 6.3 % (1.0-6.0); RBC 5.15 10^6/uL (3.5-6.1); RED CELL DISTRIBUTION WIDTH 12.7 % (11.5-14.5); WHITE BLOOD COUNT 6.7 10^3/ul (4.5-11.0)
[2018-06-19 11:16] LABS: INR 1.1; PARTIAL THROMBOPLASTIN TIME 36.9 Seconds (25.1-36.5); PROTHROMBIN TIME 12.7 SECONDS (9.4-12.5)
[2018-06-19 12:08] LABS: ALB/GLOB RATIO 1.5 (1.1-1.8); ALBUMIN 4.5 g/dL (3.0-4.8); ALT/SGPT 28 U/L (7-56); AST/SGOT 20 U/L (17-59); BLOOD UREA NITROGEN 13 mg/dL (7-21); CALCIUM 9.5 mg/dL (8.4-10.5); GFR NON-AFRICAN AMERICAN > 60; LIPASE 15 U/L (23-300)
[2018-06-19 12:48] VITALS: BP 110/80; PULSE 78; TEMP 98.2; O2SAT 99
[2018-06-19 13:09] LABS: PH,URINE 7.5 (4.7-8.0); URINE BILIRUBIN NEGATIVE (NEGATIVE); URINE BLOOD NEGATIVE (NEGATIVE); URINE GLUCOSE (UA) NEGATIVE (NEGATIVE); URINE LEUKOCYTE ESTERASE TRACE Leu/uL (NEGATIVE); URINE PROTEIN NEGATIVE mg/dL (<30 mg/dL)
[2018-06-19 13:10] LABS: URINE APPEARANCE CLEAR (CLEAR); URINE COLOR YELLOW (YELLOW)
[2018-06-19 13:16] LABS: URINE RBC 0 - 2 /hpf (0-2)
[2018-06-19 13:17] LABS: URINE BACTERIA MOD (NEG)
== END 2018-06-19 12:51 | disposition home or self-care (01) ==
LOC: ED 08:24
DX: R19.7 Diarrhea, unspecified (principal); R11.2 Nausea with vomiting, unspecified; F20.9 Schizophrenia, unspecified; F17.210 Nicotine dependence, cigarettes, uncomplicated
CPT/HCPCS: 80053; 81001; 83690; 83735; 85025; 85610; 85730; 87086; 96374; 99284; J2405